=== PATIENT | male | born 1945 | race Caucasian/White ===

== ENCOUNTER → 2017-10-05 12:27 | Outpatient (CLI) | payer MEDICARE, BC, SELFPAY ==
[2017-10-05 14:00] LABS: Thyroid Stim Hormone (TSH) 2.57 uIU/mL (0.358-3.74)
== END ==
PROVIDERS: Family Provider Family Medicine; PCP Family Medicine; Visit Provider Internal Medicine Cardiovascular Disease
DX: I48.91 Unspecified atrial fibrillation (principal)
CPT/HCPCS: 36415; 84443

== ENCOUNTER → 2017-10-27 06:47 | Outpatient (CLI) | payer MEDICARE, BC, SELFPAY ==
--- NOTE | 2017-10-27 06:54 | ECHOCS_ITS ---
Reason For Study: Afib Procedure This was a 2D Doppler, Color Flow transthoracic echocardiogram. The exam was of poor technical quality due to body habitus. The study was technically difficult. Contrast injection was performed. Exam performed in department. Left Ventricle Normal LV size. Left ventricular systolic function is normal. The estimated ejection fraction is 60 %. Unable to assess diastolic dysfunction. No regional wall motion abnormalities noted. Right Ventricle Normal RV size. Normal systolic function. Atria The left atrium is moderately enlarged. The right atrium is mildly enlarged. No doppler evidence for ASD. Mitral Valve There is no mitral annular calcification. Normal mitral valve. Trivial mitral valve insufficiency. Tricuspid Valve Normal tricuspid valve. Trivial tricuspid valve insufficiency. Unable to estimate RV systolic pressure/pulmonary artery pressure due to technically difficult study. Aortic Valve The aortic valve is not well visualized. Pulmonic Valve The pulmonic valve is not well visualized. Great Vessels Normal sized aortic root. Pericardium/Pleural No pericardial effusion. Medication 22 gauge I.V. with prn adaptor inserted into left arm. Diluted definity 4ml given slow IV push to enhance endocardial definition. MMode/2D Measurements & Calculations LVIDd: 4.4 cm IVSd: 1.2 cm Ao root diam: 3.4 cm LVIDs: 2.8 cm LVPWd: 1.6 cm FS: 35.9 % LAV(MOD-sp4): 89.1 ml LA A4 area: 27.0 cm2 RA A4 area: 22.6 cm2 Doppler Measurements & Calculations MV E max estevan: 98.0 cm/sec Ao V2 max: 112.2 cm/sec LV V1 max: 96.6 cm/sec Ao max P.0 mmHg LV V1 max P.7 mmHg Ao V2 mean: 64.3 cm/sec LV V1 mean P.5 mmHg Ao mean P.0 mmHg LV V1 mean: 55.7 cm/sec Ao V2 VTI: 17.6 cm LV V1 VTI: 18.2 cm Interpretation Summary The study was technically difficult. Contrast injection was performed. Left ventricular systolic function is normal. The estimated ejection fraction is 60 %. The left atrium is moderately enlarged. The right atrium is mildly enlarged. Trivial mitral valve insufficiency. Trivial tricuspid valve insufficiency. Unable to estimate RV systolic pressure/pulmonary artery pressure due to technically difficult study. Unable to assess diastolic dysfunction. Ordering Physician: Jim Anderson Referring Physician: iJm Anderson Performed By: Russel Lucio RCS
--- NOTE | 2017-10-27 16:07 | STRESSREP ---
Stress Test Report Date: 10/27/2017 Procedure: Pharmacologic stress nuclear imaging study Indications: Chest pain: Atrial fibrillation; peripheral vascular disease Consent: Per the patient Procedure: The patient underwent pharmacologic (Regadenoson) evaluation with a peak heart rate of 81 beats per minute (54 predicted maximal heart rate) and a peak blood pressure of 142/78 mmHg. The baseline ECG demonstrated atrial fibrillation. The peak pharmacologic ECG demonstrated no obvious ECG changes. There were no cardiac dysrhythmias pretest, during pharmacologic infusion, or recovery. There was no complaint of chest discomfort during pharmacologic infusion or recovery. The examination was discontinued secondary to completion of protocol. Impression: 1. Pharmacologic (Regadenoson) evaluation 2. Peak pharmacologic ECG with atrial fibrillation with no obvious ECG changes. 3. No additional cardiac dysrhythmias pretest, during pharmacologic infusion, or recovery 4. Nuclear images pending Myocardial perfusion imaging study: Technique: The patient was injected with 13.9 millicuries of technetium 99m Cardiolite and subsequently rest SPECT Cardiolite nuclear imaging was obtained in the horizontal long, vertical long, and short axis views. The patient underwent pharmacologic (Regadenoson) evaluation with a peak heart rate of 81 beats per minute (54 % percent predicted maximal heart rate) and a peak blood pressure of 142/78 mmHg. The patient was injected with 45 millicuries of technetium 99m Cardiolite and subsequently stress SPECT Cardiolite nuclear imaging was obtained in the horizontal long, vertical long, and short axis views. A gated Cardiolite study at peak stress was obtained. Interpretation: Rest and stress SPECT Cardiolite nuclear imaging status post realignment, normalization, and attenuation correction demonstrate demonstrate status post stress and area of subtle diminished myocardial perfusion/tracer uptake in the distal inferior/inferoapical segments which appears to be somewhat more prominent than rest.. There is end systolic thickening and brightening. The gated Cardiolite study demonstrates myocardial thickening and inward wall motion. The reported LVEF is 70 %. Impression: 1. Rest and stress SPECT currently nuclear imaging demonstrate status post stress and area of subtle myocardial perfusion/tracer uptake in the distal inferior/inferoapical segments which appears to be somewhat more prominent than rest potentially compatible with an area of stress-induced myocardial ischemia although shifting soft tissue attenuation/artifact cannot necessarily be excluded. 2. The gated Cardiolite study reports an LVEF of 70 %. This note was generated with Dragon dictation software. It may contain incorrect words, spelling, and punctuation that were not noted in checking the note before signing.
== END ==
PROVIDERS: Family Provider Family Medicine; PCP Family Medicine; Visit Provider Internal Medicine Cardiovascular Disease
DX: I48.91 Unspecified atrial fibrillation (principal); R07.89 Other chest pain
CPT/HCPCS: 78452; 93017; 93306; A9500; Q9957; A4216; C8929; J2785

== ENCOUNTER → 2017-11-03 08:04 | Day surgery (SDC) | payer MEDICARE, BC, SELFPAY ==
--- NOTE | 2017-10-30 10:28 | RAD_ITS ---
STUDY: X-RAY CHEST REASON FOR EXAM: Male, 72 years old. Chest pain. TECHNIQUE: PA and lateral views of the chest. COMPARISON: Comparison is made with prior study dated May 20, 2016. FINDINGS: Stable mild increased linear markings at the left lung base with blunting of left costophrenic angle suggestive of scarring. Scattered calcified granulomas. There is no demonstrated pleural abnormality. Normal size heart. Normal mediastinum and vel. Normal visualized pulmonary arteries. There is atherosclerotic calcification of the aortic arch with tortuosity. There is demineralization of the osseous structures. Normal visualized ribs, clavicles, and shoulders. There is no demonstrated abnormality of the visualized soft tissue structures of the upper abdomen. RAD/Chest PA and Lateral IMPRESSION: Stable increased markings at the left lung base with blunting of left costophrenic angle suggestive of left basilar scarring. Electronically Signed: Chase Romero MD at 14:38 EDT Tel [phone], Service support ,
[2017-10-30 11:00] LABS: Hematocrit 42.6 % (40-54); Hemoglobin 14.2 g/dl (13.0-16.5); Mean Corp Hgb Conc 33.3 g/gl (32-36); Mean Corpuscular Volume 89.9 fL (80-94); Mean Platelet Vol. 10.8 fl (6.2-12.0); Platelet Count 163 K/mm3 (150-450); RBC Distribution Width CV 14.1 % (11.6-14.6); RBC Distribution Width SD 46.2 fl (35.1-43.9); Red Blood Count 4.74 M/mm3 (4.6-6.2); White Blood Count 43.9 K/mm3 (4.4-11.0)
[2017-10-30 11:01] LABS: Scan Indicated on CBC? Y/N YES- FLAGS NOTED
[2017-10-30 11:17] LABS: Anion Gap 7 (5-15); BUN 19 mg/dL (7-18); BUN/Creat Ratio 18.8 RATIO (10-20); Calcium,Total 8.5 mg/dL (8.5-10.1); Chloride 105 mmol/L (98-107); Creatinine, Serum 1.01 mg/dL (0.70-1.30); EST Glomerular Filtration Rate 77 mL/min (>60); Est Glom Filt Rate - Afr Amer 94 mL/min (>60); Glucose 112 mg/dL (74-106); Potassium 3.9 mmol/L (3.5-5.1); Sodium Level 139 mmol/L (136-145)
[2017-10-30 11:50] LABS: International Normalized Ratio 1.1; Prothrombin Time (Protime)PT. 14.1 SECONDS (11.7-14.9)
[2017-10-30 11:51] LABS: Partial Thromboplast Time 26.1 Seconds (24.1-36.2)
[2017-10-30 13:59] VITALS: BMI 34.2
[2017-10-30 14:33] LABS: Pathologist Review Reviewed
--- NOTE | 2017-11-03 18:28 | CL.D_ITS ---
Patient Name: KERON MAYER Study Date: 11/03/2017 Performing: Jim Anderson MD Ht: 71 inches 180 cm : 1945 Wt: 247.2 lbs 112 kg Age: 72 Gender: male BSA: 2.3 PROCEDURE(S) PERFORMED RU69-GXE/COR/LV CLINICAL PROFILE AND INDICATIONS Indications: Chest pain Heart Failure: None Stress/Imaging Stress Test w/SPECT MPI: Yes Result: PositiveStress Test with SPECT MPI: Positive Angina Classification Anginal Classification w/in 2 Weeks: CCS III CONCLUSIONS Elevated Left Ventricular End Diastolic Pressure Normal LV size, wall motion,and systolic function LVEF: by LV gram 55 % [place] Multivessel CAD RECOMMENDATIONS Risk factor modification Medical therapy DESCRIPTION OF PROCEDURE The patient arrived to the procedure lab. The risks and benefits of the procedure as well as a full d escription of our services here and current unavailability of surgical backup were fully explained to the patient and/or their significant other prior to the catheterization. The Timeout was completed, verifying the correct patient and procedure. The patient's procedural site was prepped and draped in the usual fashion. Local anesthetic was given subcutaneously to right groin region with Lidocaine 2%. Using a modified Seldinger technique, arterial access was obtained via the right femoral artery, a 4 Fr sheath was inserted Left Coronary Artery selective angiography was performed in multiple views us ing a 4 Fr. JL5 catheter. Right Coronary Artery selective angiography was then performed in multiple views using a 4 Fr. 3DRC catheter. Left Ventriculography was performed in HOLLAND projection using a 4 Fr . Pigtail catheter. LV to AO pullback pressures were then recorded.The arterial sheath was pulled and manual compression applied until hemostasis is achieved. CORONARY ANGIOGRAPHY DOMINANCE: Left Dominant LEFT HEART ASSESSMENT Left Ventricular Ejection Fraction: by LV Gram 55 % Normal LV wall motion Elevated Left Ventricular End Diastolic Pressure LVEDP: 24 mmHg LEFT MAIN: Angiographically normal LEFT ANTERIOR DECENDING ARTERY: OSTIAL LAD: 25 % Stenosis PROX LAD: Mild luminal irregularities DIAGONAL 1: Proximal - Mild luminal irregularities CIRCUMFLEX ARTERY: PROX CIRC: Mild calcification, Mild luminal irregularities OM 1: Ostial - 25 % Stenosis RIGHT CORONARY ARTERY: Angiographically normal VALVE FINDINGS: Normal Aortic Valve function Normal Mitral Valve function AORTIC ROOT: Angiographically normal COMPLICATIONS No Complications PROCEDURE MEDICATIONS Versed 1 mg IV Versed 1 mg IV Oxygen: 2 L/min via nasal cannula SUMMARY OF HEMODYNAMIC DATA Time AIR REST ECG 08:30:31 ECG 09:36:02 AO 97/61 (77) SA 10:19:25 LV 105/12, 29 10:27:59 LV 114/9, 24 10:28:06 LV 110/16, 26 10:28:56 LV 107/17, 25 10:29:03 LVp 111/16, 27 10:29:08 AOp 120/75 (94) 10:29:13 Signed By Jim Anderson MD On 11/03/2017 18:27:59 Jim Anderson MD
== END ==
PROVIDERS: Family Provider Family Medicine; PCP Family Medicine; Visit Provider Internal Medicine Cardiovascular Disease
DX: I25.10 Atherosclerotic heart disease of native coronary artery without angina pectoris (principal); I48.91 Unspecified atrial fibrillation; I10 Essential (primary) hypertension; E78.5 Hyperlipidemia, unspecified; C91.10 Chronic lymphocytic leukemia of B-cell type not having achieved remission; R09.89 Other specified symptoms and signs involving the circulatory and respiratory systems; J44.9 Chronic obstructive pulmonary disease, unspecified; F32.9 Major depressive disorder, single episode, unspecified; Z79.82 Long term (current) use of aspirin; Z79.899 Other long term (current) drug therapy; Z87.891 Personal history of nicotine dependence
CPT/HCPCS: 36415; 71046; 80048; 85027; 85610; 85730; 93458; 99152; 99153; J7040; Q9967; C1769; C1894

== ENCOUNTER → 2018-03-09 14:30 | Outpatient (CLI) | payer MEDICARE, BC, SELFPAY ==
--- NOTE | 2018-03-09 14:33 | VDLE_ITS ---
Reason For Study: LEG SWELLING RIGHT LEFT GSV is normal. CFV is compressible, spontaneous, phasic, CFV is compressible, spontaneous, phasic, competent, and demonstrates normal competent and demonstrates normal augmentation. augmentation. FV is compressible, spontaneous, phasic, competent and demonstrates normal augmentation. POP V is compressible, spontaneous, phasic, competent and demonstrates normal augmentation. T/P Trunk is compressible. PTV is compressible. RT PerV is compressible. Procedure Exam performed in department. A preliminary report was called and/or faxed to Anthony Donald. Interpretation Summary Deep veins of the right lower extremity are patent and compressible segmentally. There is no evidence of right lower extremity deep vein thrombosis. Valvular competence appears intact within the proximal deep venous system on the right . The right greater saphenous vein appears patent and compressible segmentally. Ordering Physician: Kelin Donald Referring Physician: Med Villanueva Performed By: Brissa Regalado RVT
== END ==
PROVIDERS: Family Provider Family Medicine; PCP Family Medicine; Referring Provider Nurse Practitioner Family; Visit Provider Nurse Practitioner Family
DX: R60.0 Localized edema (principal)
CPT/HCPCS: 93971

== ENCOUNTER → 2018-03-26 10:27 | Outpatient (CLI) | payer MEDICARE, BC, SELFPAY ==
--- NOTE | 2018-03-26 10:33 | CT_ITS ---
STUDY: CT RIGHT KNEE/PROXIMAL MID LOWER LEG WITHOUT CONTRAST REASON FOR EXAM: Male, 73 years old. Swelling and redness of the knee one week after leg was run over by a tractor. RADIATION DOSAGE (If Supplied By Facility): CTDIvol = ( 15.35 ) mGy, DLP = ( 810.46 ) mGycm TECHNIQUE: Transaxial CT imaging of the knee was performed. Coronal and sagittal images were reformatted. # of Images: 549 Individualized dose optimization techniques were used for this CT. COMPARISON: None. FINDINGS: There is periarticular spurring of the medial femoral condyle and, to a minimal degree, the medial tibial plateau. There is mild narrowing of the articular joint space of the medial knee compartment. There is notable periarticular spurring of the lateral femoral condyle and lateral tibial plateau. Nondisplaced, sagittal oriented intra-articular fracture also noted through the lateral tibial plateau. There is moderately severe narrowing of the articular joint space of the lateral knee compartment. Normal proximal tibiofibular articulation. There is periarticular spurring of the base of the patella. There is a small to moderate volume joint effusion. The quadriceps tendon is grossly normal. The patellar tendon is grossly normal. Normal Hoffa's fat pad. There is stranding density in the subcutaneous tissues of the visualized lower thigh to the mid lower leg, greater laterally, which may be edema or ecchymosis lentiform shaped 6.25 x 2.05 x 2.5 cm soft tissue density in the lateral subcutaneous tissues of the proximal lower leg (series 602 image 37, series 2 image 92) may be a localized hematoma. There is also some prepatellar soft tissue swelling. CT/Extremity Lower without Contra IMPRESSION: 1. Nondisplaced intra-articular sagittal fracture through the lateral tibial plateau, accompanied by mhaty-oe-[id number] sized joint effusion/hemarthrosis. 2. Probable small hematoma in the superficial lateral subcutaneous tissues of the proximal right lower leg. Additional stranding in the subcutaneous tissues from the distal thigh up to the mid third of the lower leg may be edema or ecchymosis. 3. Tricompartmental degenerative changes of the right knee, as described. N.B. : The above information has been verbally conveyed by Asaf Romo MD to Dr. Kim MD, on 03/27/2018 13:15:47 (ET). Electronically Signed: Asaf Romo MD at 13:16 EDT , Service support ,
--- NOTE | 2018-03-26 10:33 | CT_ITS ---
STUDY: CT ABDOMEN AND PELVIS WITH CONTRAST REASON FOR EXAM: Male, 73 years old. Edema, CLL. RADIATION DOSAGE (If Supplied By Facility): CTDIvol = ( 26.86 ) mGy, DLP = ( 1313.38 ) mGycm TECHNIQUE: Transaxial images were obtained from the dome of the diaphragm to the symphysis pubis with oral contrast. 100 ml of Isovue 300 contrast was administered. Sagittal and coronal images were reconstructed. # Of Images Including Paperwork: 450 Individualized dose optimization techniques were used for this CT. COMPARISON: CT abdomen and pelvis March 10, 2017. FINDINGS: The visualized lung bases are unremarkable. The visualized portions of the heart are within normal limits. Normal liver. Normal gallbladder and extrahepatic biliary system. There is mild splenomegaly, measuring 17 x 14 x 8 cm. Normal pancreas. Normal bilateral adrenal glands. Normal right kidney. Normal left kidney. No hydronephrosis. Normal visualized stomach. Normal small intestine. There is a ring of anastomotic sutures at the distal sigmoid. Gas and fecal material fill most of the colon, but there is no distention. No suspicious mural thickening. There is non-visualization of the appendix. There is diffuse atherosclerotic calcification of the abdominal aorta and proximal iliac arteries, without a demonstrated aneurysm. Normal inferior vena cava. There are abdominal retroperitoneal lymph nodes ranging from nonspecific subcentimeter size to mildly enlarged, several of which have enlarged. There are enlarged bilateral iliac lymph nodes now clearly increased in size from previous exam and mild right inguinal adenopathy. A distal right iliac lymph node, for example, is 5.2 x 2.65 x 2.8 cm (series 7 image 92, series 608 image 67), while a distal left external iliac lymph node is 3.9 x 2.2 x 2.8 cm (series 7 image 87, series 608 image 109). Normal urinary bladder. The prostate gland is 4.6 x 4.4 x 4.6 cm (R49 cc). Small hernia containing a knuckle of nondistended small bowel is now seen at the site of an old healed surgical incision of the left anterior abdominal wall. There are stable degenerative changes of the visualized lumbar spine and an 18 degree levoscoliosis centered at the superior L5 vertebral endplate. Stable subcentimeter sclerotic density in the right ilium series [address]/Abdomen/Pelvis WITH Contrast IMPRESSION: 1. Increased retroperitoneal adenopathy, as described. 2. Mild splenomegaly. 3. Ring anastomotic sutures again seen at the distal sigmoid. No suspicious mural thickening. No bowel obstruction. 4. A small knuckle of nondistended small bowel now seen within a small hernia of the left anterior abdominal wall at the site of an old healed surgical incision. 5. Stable degenerative changes and levoscoliosis of the lumbar spine. 6. Aortoiliac atherosclerotic calcific plaquing again noted. No demonstrated aneurysm, but the aortic calcification by itself portends some risk for future cardiovascular event, Abdominal Aortic Calcific Deposits Are an Important Predictor of Vascular Morbidity and Mortality; Gordon Bazan, et al. Circulation, Aug 2000;103:[id number]. 7. Enlarged prostate gland. Electronically Signed: Asaf Romo MD at 13:52 EDT , Service support ,
--- NOTE | 2018-03-26 10:33 | CT_ITS ---
STUDY: CT CHEST WITH CONTRAST REASON FOR EXAM: Male, 73 years old. Chronic lymphocytic leukemia. Edema. RADIATION DOSAGE (If Supplied By Facility): CTDIvol = ( 25.35 ) mGy, DLP = ( 874.30 ) mGycm TECHNIQUE: Transaxial imaging was performed following intravenous administration of 100 ml of Isovue 300 contrast material. Multiplanar coronal and sagittal images were reformatted. # of Images: 867 Individualized dose optimization techniques were used for this CT. COMPARISON: CT chest: 07/02/2016 FINDINGS: There is mild hyperinflation of the lungs possibly with chronic obstructive lung disease (COPD). There is a small calcified nodule/granuloma present in the right lower lobe. Minimal atelectatic changes in the left lung base. Lung glez are unremarkable for acute infiltrative or congestive changes. Posteriorly that is mild pleural thickening. No pleural or pericardial effusion. There is borderline cardiomegaly. There are mild calcifications of the coronary arteries. Again demonstrated multiple lymph nodes within the mediastinum, mildly increased in size and number since the prior exam. Small bilateral hilar lymph nodes are present. Normal enhanced pulmonary arteries. There is atherosclerotic calcification of the aortic arch with tortuosity and elongation of the aortic arch and descending thoracic aorta. No abnormal enhancement. There are multi-level mild degenerative changes of the thoracic spine. Mildly increased thoracic kyphosis Again demonstrated multiple bilateral enlarged axillary lymph nodes mildly increased in size since the prior exam. There is no demonstrated acute abnormality of the visualized upper abdomen. Moderate splenomegaly. Multiple small mesenteric and periaortic lymph nodes are visualized. CT/Chest WITH Contrast IMPRESSION: 1. Bilateral mediastinal and axillary lymphadenopathy again demonstrated. 2. Possible COPD. No worrisome lung nodule or mass identified. 3. Moderate splenomegaly. Electronically Signed: Dioni Marsh MD at 10:35 EDT Tel , Service support ,
== END ==
PROVIDERS: Family Provider Family Medicine; PCP Family Medicine; Referring Provider Physician Assistant; Visit Provider Physician Assistant
DX: C91.10 Chronic lymphocytic leukemia of B-cell type not having achieved remission (principal); R16.1 Splenomegaly, not elsewhere classified; R74.0 Nonspecific elevation of levels of transaminase and lactic acid dehydrogenase [LDH]; R60.0 Localized edema; M17.11 Unilateral primary osteoarthritis, right knee
CPT/HCPCS: 71260; 73700; 74177; Q9967

== ENCOUNTER → 2018-03-30 10:47 | Outpatient (CLI) | payer MEDICARE, BC, SELFPAY ==
--- NOTE | 2018-03-30 10:51 | VDLE_ITS ---
Reason For Study: LEG PAIN RIGHT LEFT GSV is normal. CFV is compressible, spontaneous, phasic, CFV is compressible, spontaneous, phasic, competent, and demonstrates normal competent and demonstrates normal augmentation. augmentation. FV is compressible, spontaneous, phasic, competent and demonstrates normal augmentation. POP V is compressible, spontaneous, phasic, competent and demonstrates normal augmentation. T/P Trunk is compressible. PTV is compressible. RT PerV is compressible. Procedure Exam performed in department. A preliminary report was called and/or faxed to Anthony Ortiz. Interpretation Summary Deep veins of the right lower extremity are patent and compressible segmentally. There is no evidence of right lower extremity deep vein thrombosis. Valvular competence appears intact within the proximal deep venous system on the right . The right greater saphenous vein appears patent and compressible segmentally. Ordering Physician: Danyel Ortiz Referring Physician: Danyel Ortiz Performed By: Brissa Regalado RVT
== END ==
PROVIDERS: Family Provider Family Medicine; PCP Family Medicine; Referring Provider Physician Assistant; Visit Provider Physician Assistant
DX: M79.661 Pain in right lower leg (principal)
CPT/HCPCS: 93971

== ENCOUNTER → 2018-06-15 11:03 | Outpatient (CLI) | payer MEDICARE, BC, SELFPAY ==
[2018-06-14 14:36] VITALS: BMI 34.4
== END ==
PROVIDERS: Family Provider Family Medicine; PCP Family Medicine; Referring Provider Surgery; Visit Provider Surgery
DX: R09.89 Other specified symptoms and signs involving the circulatory and respiratory systems (principal)
CPT/HCPCS: 93880

== ENCOUNTER 2018-06-16 10:24 | Day surgery (SDC) | payer MEDICARE, BC, SELFPAY ==
[2018-06-14 14:36] VITALS: BMI 34.4
[2018-06-16] VITALS (7 sets, daily range): BP systolic 105–121; BP diastolic 67–84; PULSE 50–72; RESP 12–16; TEMP 36.3–36.8; O2SAT 92–97; BMI 34.5
[2018-06-16] MEDS: Cefazolin 2 GM in 0.9% Normal Saline 100 ML IV (12:15)
--- NOTE | 2018-06-16 12:22 | PCM.DC.POR ---
Discharge Diet: No Restrictions - Pain medication may cause nausea. You should typically eat light foods as you take your pain medication. Discharge Activity: Return to Normal Activity, May Shower - Leave the bandage on for 2-3 days. When you remove the bandage, leave the steri-strips intact until they fall off. Additional Dressing/Incision Instructions:: Leave the bandage on for 2-3 days. When you remove the bandage, leave the steri-strips intact until they fall off. Allergies/Adverse Reactions: Allergies No Known Allergies Allergy (Verified 06/14/18 14:36) Medications to take at Discharge Amlodipine [Norvasc] 10 mg PO QHS 05/09/16 Aspirin [Adult Low Dose Aspirin EC] 81 mg PO DAILY 05/09/16 Losartan Potassium [Cozaar] 50 mg PO QHS 05/09/16 Albuterol Inhaler [Ventolin Hfa] 1 - 2 puff INHALATION Q4H PRN PRN 07/22/16 Loratadine [Claritin] 10 mg PO DAILY 09/03/16 atorvastatin 40 mg tablet 40 mg PO QHS tab 08/21/17 carvedilol 6.25 mg tablet 6.25 mg PO BID tab 08/21/17 citalopram 40 mg tablet 20 mg PO QDAY tab 08/21/17 hydrochlorothiazide 12.5 mg tablet 12.5 mg PO QDAY tab 08/21/17 melatonin 10 mg tablet 10 mg PO HS PRN 10/05/17 clspshqm-byh-kvjji acid 300 mcg-lycopene 600 mcg-lutein 300 mcg tablet 1 tab PO QDAY tab 10/05/17 apixaban 5 mg tablet 5 mg PO BID #180 tab 11/06/17 Allopurinol [Zyloprim] 300 mg PO DAILY 168 Days #36 tab 06/14/18 Lidocaine/Prilocaine [Lidocaine-Prilocaine Cream] 1 applicatio TP DAILY PRN PRN 30 Days #1 tube 06/14/18 Ondansetron [Zofran Odt] 4 mg PO Q8H PRN PRN 10 Days #30 tab 06/14/18 Valacyclovir HCl [Valacyclovir] 500 mg PO DAILY 30 Days #30 tab 06/14/18 Hydrocodone Bitart/Apap 5-325 [[place] 5MG-325MG] 1 tablet PO Q6H PRN PRN 2 Days #5 tablet 06/16/18 The following prescriptions were given: Hydrocodone Bitart/Apap 5-325 [[place] 5MG-325MG] 1 tablet PO Q6H PRN PRN 2 Days #5 tablet PRN Reason: Pain Primary Care Physician: Med Villanueva [Primary Care Provider] - Test Results: Test results from this visit will be discussed in further detail at your follow-up appointment, if applicable. Please Follow Up With: Ned Mills MD - [phone] When: Follow up office can be as needed
[2018-06-16] MEDS: Bupivacaine 0.5% PF 10 ML VIAL (12:49)
--- NOTE | 2018-06-16 13:01 | PCM.OPRPT ---
Problem List (1) Chronic lymphocytic leukemia (CLL), B-cell Status: Chronic Qualifiers: Report of Operation Date of Procedure: 06/16/18 Pre-Operative Diagnosis: Chronic lymphocytic leukemia Post-Operative Diagnosis: Same Surgery/Procedure Performed:: Right internal jugular 6 [place] power port placement. Reference #[id number] lot number [id number] expiry date 10/06/2019 Description of Surgical Findings:: Timeout and informed consent was obtained. 73-year-old male was taken the operating placement table underwent monitored anesthesia care. Ancef 2 g given intravenous preoperatively. The right neck and chest were sterilely prepped and draped. 1% lidocaine mixed 50-50 with 0.5% Marcaine was used as a local anesthetic. Throughout the procedure a total of 20 cc was used. Under ultrasound guidance local was instilled. Micropuncture needle was inserted in the right internal jugular vein followed by salvage wire advancement. Micropuncture wire inserted. Then local was instilled down upon the chest wall. Mid clavicular line second intercostal space transverse incision was created. Electrocautery was used to make a sub-changes pocket. The tubing was tunneled from the chest to the neck site. Then the micropuncture sheath dilator was placed over the wire. The wires and dilator were removed and an 035 J-wire was inserted. Fluoroscopy demonstrated good positioning. The sheath dilator was inserted over the wire the wire and dilator removed catheter was advanced to the sheath the sheath was split the catheter was positioned at the SVC atrial junction. The catheter was amputated connected to the port secured with port attachment device. The port was placed in the pocket secured there with interrupted 2-0 silk. The port site was closed with interrupted 3-0 Vicryl subdermal stitches. The neck was closed with interrupted 5-0 Vicryl subdermal stitches. Steri-Strips Telfa and OpSite dressings applied. The port was accessed and aspirated easily it was flushed with saline and then 2.5 cc of heparinized saline. Sponge and instrument and needle counts were reported to the surgeon to be correct. Blood loss was minimal. He tolerated the procedure well and was taken to the recovery area in satisfactory condition. Stat portable chest x-ray is pending. Specimens none. Drains none. Blood loss minimal. Ned Mills M.D., F.A.C.S. Type of Anesthesia:: Local MAC Anesthesiologist: Alicia Mcgovern
--- NOTE | 2018-06-16 13:35 | RAD_ITS ---
STUDY: X-RAY CHEST REASON FOR EXAM: Male, 73 years old. Port placement. TECHNIQUE: Single AP portable view of the chest. COMPARISON: Comparison is made with prior study dated October 30, 2017. FINDINGS: A right-sided portacatheter has been placed. The tip is in the proximal portion of the superior vena cava. Scattered calcified granulomas. There is no demonstrated pleural abnormality. There is mild cardiac enlargement. Normal mediastinum and vel. Normal visualized pulmonary arteries. There is atherosclerotic calcification of the aortic arch with tortuosity. Normal visualized thoracic spine. Normal visualized ribs, clavicles, and shoulders. There is no demonstrated abnormality of the visualized soft tissue structures of the upper abdomen. RAD/Chest 1 View (Portable) IMPRESSION: The tip of the right portacatheter is in the proximal portion of the superior vena cava. Electronically Signed: Chase Romero MD at 15:28 EST Tel [phone], Service support ,
== END 2018-06-16 14:46 | disposition home or self-care (01) ==
LOC: SDC 10:25 → AC 10:26
PROVIDERS: Family Provider Family Medicine; PCP Family Medicine; Referring Provider Surgery; Visit Provider Surgery
PROC: (CPT 36561; principal; 2018-06-16 12:15)
DX: Z45.2 Encounter for adjustment and management of vascular access device (principal); C91.10 Chronic lymphocytic leukemia of B-cell type not having achieved remission; R09.89 Other specified symptoms and signs involving the circulatory and respiratory systems; I25.10 Atherosclerotic heart disease of native coronary artery without angina pectoris; I10 Essential (primary) hypertension; I48.91 Unspecified atrial fibrillation; J44.9 Chronic obstructive pulmonary disease, unspecified; E78.00 Pure hypercholesterolemia, unspecified; G47.33 Obstructive sleep apnea (adult) (pediatric); F32.9 Major depressive disorder, single episode, unspecified; Z79.01 Long term (current) use of anticoagulants; Z79.82 Long term (current) use of aspirin; Z79.899 Other long term (current) drug therapy; Z87.891 Personal history of nicotine dependence
CPT/HCPCS: 36561; 71045; 77001; J7120

== ENCOUNTER → 2018-09-30 13:59 | Outpatient (CLI) | payer MEDICARE, BC, SELFPAY ==
[2018-09-15 13:26] VITALS: BMI 36.6
--- NOTE | 2018-09-30 14:01 | ECHODONC_ITS ---
Reason For Study: Dyspnea/SOB Procedure This was a 2D Doppler, Color Flow transthoracic echocardiogram. Technically difficult study. Unable to perform Strain Analysis due to arrhythmia and need/use of Definity. The study was technically difficult. Contrast injection was performed. Exam performed in department. Left Ventricle Normal LV size. Mild concentric left ventricular hypertrophy. Left ventricular systolic function is normal. The estimated ejection fraction is 65 %. Unable to assess diastolic dysfunction. No regional wall motion abnormalities noted. Right Ventricle Normal RV size. Normal systolic function. Atria The left atrium is moderately enlarged. The right atrium is mildly enlarged. No doppler evidence for ASD. Mitral Valve There is mild mitral annular calcification. Normal mitral valve. Trivial mitral valve insufficiency. Tricuspid Valve Normal tricuspid valve. Trivial tricuspid valve insufficiency. Unable to estimate RV systolic pressure/pulmonary artery pressure due to technically difficult study. Aortic Valve The aortic valve is not well visualized. Pulmonic Valve The pulmonic valve is not well visualized. Great Vessels Normal sized aortic root. Pericardium/Pleural No pericardial effusion. Medication Diluted definity 3ml given slow IV push to enhance endocardial definition. MMode/2D Measurements & Calculations LVIDd: 4.4 cm IVSd: 1.4 cm Ao root diam: 3.6 cm LVIDs: 2.6 cm LVPWd: 1.3 cm FS: 41.2 % LAV(MOD-sp4): 105.3 ml LA A4 area: 32.2 cm2 RA A4 area: 26.3 cm2 Doppler Measurements & Calculations MV E max estevan: 107.5 cm/sec Ao V2 max: 130.1 cm/sec LV V1 max: 90.8 cm/sec Ao max P.8 mmHg LV V1 max P.3 mmHg PA V2 max: 98.1 cm/sec Interpretation Summary The study was technically difficult. Contrast injection was performed. Left ventricular systolic function is normal. The estimated ejection fraction is 65 %. Mild concentric left ventricular hypertrophy. The left atrium is moderately enlarged. The right atrium is mildly enlarged. There is mild mitral annular calcification. Trivial mitral valve insufficiency. Trivial tricuspid valve insufficiency. Unable to estimate RV systolic pressure/pulmonary artery pressure due to technically difficult study. Unable to assess diastolic dysfunction. Ordering Physician: David Holloway Referring Physician: Med Villanueva Performed By: Russel Lucio RCS
== END ==
PROVIDERS: Family Provider Family Medicine; PCP Family Medicine; Referring Provider Internal Medicine Cardiovascular Disease; Visit Provider Internal Medicine Cardiovascular Disease
DX: R06.02 Shortness of breath (principal); I48.91 Unspecified atrial fibrillation
CPT/HCPCS: 93306; Q9957; A4216; C8929

== ENCOUNTER → 2018-10-26 13:32 | Outpatient (CLI) | payer MEDICARE, BC, SELFPAY ==
[2018-10-26 11:06] VITALS: BMI 35.5
--- NOTE | 2018-10-26 13:36 | VDLE_ITS ---
Reason For Study: swelling RIGHT LEFT GSV is normal. CFV is compressible, spontaneous, phasic, CFV is compressible, spontaneous, phasic, competent, and demonstrates normal competent and demonstrates normal augmentation. augmentation. FV is compressible, spontaneous, phasic, competent and demonstrates normal augmentation. POP V is compressible, spontaneous, phasic, competent and demonstrates normal augmentation. T/P Trunk is compressible. PTV is compressible. RT PerV is compressible. Procedure Exam performed in department. The exam was diagnostic. A preliminary report was called and/or faxed to Dr. Shin's office. Interpretation Summary There is no evidence of right lower extremity deep vein thrombosis. Right greater saphenous vein appears patent and compressible segmentally. Normal flow patterns left common femoral vein Ordering Physician: Heraclio Shin Performed By: Benton Doyle RVT
== END ==
PROVIDERS: Family Provider Family Medicine; PCP Family Medicine; Referring Provider Internal Medicine Medical Oncology
DX: R22.41 Localized swelling, mass and lump, right lower limb (principal); C91.10 Chronic lymphocytic leukemia of B-cell type not having achieved remission; E78.5 Hyperlipidemia, unspecified; Z12.5 Encounter for screening for malignant neoplasm of prostate
CPT/HCPCS: 36592; 80053; 83615; 85025; 93971; A4216

== ENCOUNTER 2018-12-21 10:50 | Day surgery (SDC) | payer MEDICARE, BC, SELFPAY ==
--- NOTE | 2018-12-08 01:02 | HP_ITS ---
HPI HPI History of Present Illness Surgical H&P: Yes Details: KERON MAYER, is a 73 M who presents to the office today to discuss a cardioversion. He has a history of atrial fibrillation, minimal coronary artery disease, hypertension, hyperlipidemia, carotid artery disease, obstructive sleep apnea, and chronic lymphatic leukemia with chemotherapy. Since he was here last he did see EP for possible ablation. They had recommended a cardioversion first, if this did not work then would proceed with an ablation. Patient states that he still does note that he is short of breath at times. He also notes that he is fatigued. He does realize that his issues could also be related to his obstructive sleep apnea or to him just finishing up his chemotherapy. He is not aware of any irregular heartbeats. He does not have any chest discomfort. He does not have any orthopnea. He does not have any lightheadedness or dizziness. He does not have any lower extremity edema. Intake Vital Signs 12/08/18 Height 5 ft 11 in 12/08/18 Weight: 248 lb 8 oz 12/08/18 Body Mass Index (BMI) 34.6 12/08/18 Blood Pressure 128/76 H 12/08/18 Blood Pressure Location Lt brachial 12/08/18 Blood Pressure Position Sitting 12/08/18 Respiratory Rate 14 12/08/18 Pulse Rate 68 12/08/18 Pulse Source Palpation Intake Visit Reasons: 6 wk FU [employer]icy[employer] Required: No Is patient in pain?: No Allergies No Known Allergies Allergy (Verified 12/08/18 11:09) Medications Amlodipine [Norvasc] 10 mg PO QHS 05/09/16 [History Confirmed 12/08/18] Aspirin [Adult Low Dose Aspirin EC] 81 mg PO DAILY 05/09/16 [History Confirmed 12/08/18] Losartan Potassium [Cozaar] 50 mg PO QHS 05/09/16 [History Confirmed 12/08/18] Albuterol Inhaler [Ventolin Hfa] 1 - 2 puff INHALATION Q4H PRN PRN 07/22/16 [History Confirmed 12/08/18] Loratadine [Claritin] 10 mg PO DAILY 09/03/16 [History Confirmed 12/08/18] atorvastatin 40 mg tablet 40 mg PO QHS tab 08/21/17 [History Confirmed 12/08/18] carvedilol 6.25 mg tablet 6.25 mg PO BID tab 08/21/17 [History Confirmed 12/08/18] citalopram 40 mg tablet 20 mg PO QDAY tab 08/21/17 [History Confirmed 12/08/18] hydrochlorothiazide 12.5 mg tablet 12.5 mg PO QDAY tab 08/21/17 [History Confirmed 12/08/18] melatonin 10 mg tablet 10 mg PO HS PRN 10/05/17 [History Confirmed 12/08/18] apixaban 5 mg tablet 5 mg PO BID #180 tab 11/06/17 [Rx Confirmed 12/08/18] food supplement, lactose-reduced 0.04 gram-1 kcal/mL oral liquid 1 ea PO ml 12/08/18 [History Confirmed 12/08/18] valacyclovir 500 mg tablet 500 mg PO DAILY 12/08/18 [History Confirmed 12/08/18] Nurse's Note: I just feel tired today w/ normal sleeping habits (8-9 hrs). Currently taking Valacyclovir 500 mg, but in our med list it had been d/c. PFSH Medical History Bruit of left carotid artery (Acute) Atherosclerosis of [place] coronary artery of [place] heart without angina pectoris (Chronic) Atrial fibrillation (Chronic) Pure hypercholesterolemia (Chronic) Essential (primary) hypertension (Chronic) Chronic lymphocytic leukemia (CLL), B-cell (Chronic) Edema of right lower extremity (Acute) Bruising (Acute) Chest discomfort (Acute) YURI (obstructive sleep apnea) (Chronic) Right carotid bruit (Chronic) Renal mass (Acute) Renal mass, left (Acute) Skin cancer of face (Acute) CLL (chronic lymphocytic leukemia) (Chronic) COPD (chronic obstructive pulmonary disease) (Chronic) Depression (Chronic) Diverticulitis (Chronic) Surgical History CYST REMOVAL FROM BACK (Chronic) History of arthroscopy of both knees (Chronic) History of colectomy (Chronic) History of tonsillectomy (Chronic) Previous back surgery (Chronic) RIGHT FOREARM SCREWS AND PLATES (Chronic) kidney tumor removed (Chronic) Family History Mother Throat cancer Father Heart disease Brother Hypertension Social History (Updated 12/08/18 @ 13:02 by YUNIER Frausto) Smoking Status: Current some day smoker alcohol intake: current substance use type: does not use ROS Const Const: Positive for fatigue; negative for weakness, fever(s) or headache(s) Eyes Eyes: Negative for blind spots, loss of peripheral vision or transient loss of vision ENT ENT: Negative for headache(s), dizziness, tinnitus or Nosebleed/epistaxis Cardio Chest Pain: No Palpitations: No Edema: None Muscle aches with walking: None Resp Respiratory: Positive for SOB with activity; negative for SOB at rest, SOB orthopnea\SOB lying down or Cough GI GI: Negative nausea, vomiting, heartburn or vomiting blood/hematemesis : Negative for hematuria Musc Musc: Negative for muscle aches/ myalgia Neuro Neuro: Negative for dizziness, lightheadedness, near syncope, syncope, orthostatic symptoms, headache(s) or weakness James Hematologic/Lymphatic: Negative for easy bleeding Endo Endo: Positive for fatigue Cardiology Exam Const Appearance: cooperative, healthy appearing, comfortable and no acute distress Nutritional Appearance: well nourished and obese Orientation: alert, awake and oriented x3 Head Head: normal to inspection Ears: hearing grossly normal bilaterally Nose: external nose normal Face and Sinus: face symmetric Mouth: oral mucosae normal Eyes General: appearance normal, both eyes and all related structures Eyelids: eyelids normal EOM: EOM intact bilaterally Neck Neck: normal visual inspection and no JVD Carotids: normal carotid upstroke Chest Chest inspection: normal inspection of the chest, symmetric chest movement and normal respiratory effort; negative cough Auscultation: Bilateral: Clear to Auscultation Cardio Rate: regular rate Rhythm: irregularly irregular Heart sounds: S1 normal and S2 normal; negative rub, gallop or murmur GI GI: obese Neuro General: alert, awake, oriented x3 and CN's II-XI intact bilaterally Skin Skin: no rashes or lesions noted Extremities Pulses: Normal: Right Posterior Tibial Pulse, Left Posterior Tibial Pulse, Right Radial Pulse, Left Radial Pulse Lower Extremity Edema: None: Bilateral Right knee brace Psych Psychological: normal affect Assessment & Plan 1. Atrial fibrillation, unspecified type I48.91 Plan Patient is agreeable to proceed with a cardioversion, this is scheduled for December 21, [address] Anderson. He is anticoagulated with a factor Xa inhibitor. He is also on a rate limiting medication. If his cardioversion is unsuccessful we will then refer patient back to EP for an ablation. Orders Orders: Cardioversion Today 2. Essential hypertension I10 Plan Blood pressure is well controlled on current medications, we do not recommend any changes at this time. 3. Pure hypercholesterolemia E78.00 Plan Patient will continue with current moderate intensity 4. YURI (obstructive sleep apnea) G47.33 Plan Patient does follow with pulmonary for his sleep apnea. He states that he is having a new sleep study done. He was encouraged to continue with this as this could be also contributing to his fatigue and shortness of breath. 5. Atherosclerosis of [place] coronary artery of [place] heart without angina pectoris I25.10 Plan Stable, from a cardiac standpoint patient does not have any symptoms of angina. We recommend that they continue with current aggressive medical management and risk factor modification. Plan Detail Other Medications New: food supplement, lactose-reduced (Boost) 1 ea PO valacyclovir 500 mg PO DAILY Additional Comments Thank you for allowing us to participate in patient's plan of care, if you have any questions please do not hesitate to call. This note was generated using a voice recognition system and there may be incorrect words, spelling or punctuation errors that were not noted when reviewing the office note prior to saving. Follow Up 12/08/18 (keep as is) 12/08/18 (Please make an EKG appt one week after 12/21- cardioversion scheduled for then- thanks) Coding Level of Care Code Off vis,est,level 4 Diagnoses Atrial fibrillation, unspecified type I48.91 ??Atrial fibrillation type: unspecified Essential hypertension I10 Pure hypercholesterolemia E78.00 YURI (obstructive sleep apnea) G47.33 Atherosclerosis of [place] coronary artery of [place] heart without angina pectoris I25.10 Coding Level of Care Code Off vis,est,level 4 Diagnoses Atrial fibrillation, unspecified type I48.91 ??Atrial fibrillation type: unspecified Essential hypertension I10 Pure hypercholesterolemia E78.00 YURI (obstructive sleep apnea) G47.33 Atherosclerosis of [place] coronary artery of [place] heart without angina pectoris I25.10 Supplemental Info Supplemental Information Heart catheterization from October 2017 showed ejection fraction of 55%, LVEDP of 24 mmHg, left main is angiographically normal, ostial LAD with 25% stenosis, proximal LAD with mild luminal irregularities, diagonal 1 with proximal mild luminal irregularities, proximal circumflex with mild calcification and mild luminal irregularities, OM1 with ostial 25% stenosis, and RCA as angiographically normal. Medical therapy was recommended. Carotid duplex ultrasound from January 2016 showed mild, less than 50%, stenosis of right and left extracranial internal carotid. Echocardiogram from October 2017 showed an estimated ejection fraction of 60%, moderately enlarged left atrium, mildly enlarged right atrium, trivial mitral valve insufficiency, trivial tricuspid valve insufficiency, unable to target RVSP, and unable to calculate diastolic dysfunction. Stress test from October 2017 showed an area potentially compatible with stress- induced myocardial ischemia although soft tissue attenuation/artifact could not nicely be excluded with an ejection fraction of 70%. Labs LDL Cholesterol 46 mg/dL (0-130) 06/10/18 HDL Cholesterol 33 mg/dL (40-) L 06/10/18 Triglycerides 159 mg/dL (-199) 06/10/18 VLDL Cholesterol 32 mg/dL (5-40) 06/10/18 Diagnostics Echocardiogram 09/30/18 Venous Doppler Study 10/26/18 12/08/18 1302 <Electronically signed by Carolyn Griffin> Date _ Carolyn FAYE I have re-examined the patient. There are no clinical changes since date of exam.
[2018-12-08 11:06] VITALS: BMI 34.6
--- NOTE | 2018-12-21 11:44 | EKG12_ITS ---
Test Reason : POST DCCV Blood Pressure : / mmHG Vent. Rate : 067 BPM Atrial Rate : 067 BPM P-R Int : 238 ms QRS Dur : 102 ms QT Int : 454 ms P-R-T Axes : -09 -32 018 degrees QTc Int : 479 ms Sinus rhythm with 1st degree A-V block Left axis deviation Low voltage QRS Abnormal ECG When compared with ECG of 21-DEC-2018 11:44, MANUAL COMPARISON REQUIRED, DATA IS UNCONFIRMED Confirmed by PIETER HUYNH, FERCHO ([id number]), assignment editor EMILIE TREVIZO ([id number]) on 12/27/2018 2:02:59 PM Referred By: Jim Anderson Confirmed By:CHELO STAPLETON MD
--- NOTE | 2018-12-21 12:45 | EKG12_ITS ---
Test Reason : A-FIB Blood Pressure : / mmHG Vent. Rate : 054 BPM Atrial Rate : 058 BPM P-R Int : 000 ms QRS Dur : 088 ms QT Int : 446 ms P-R-T Axes : 000 -25 013 degrees QTc Int : 422 ms Atrial fibrillation Low voltage QRS Abnormal ECG No previous ECGs available Confirmed by PIETER HUYNH, FERCHO ([id number]), order editor EMILIE TREVIZO ([id number] on 12/27/2018 2:02:46 PM Referred By: Jim Anderson Confirmed By:CHELO STAPLETON MD
--- NOTE | 2018-12-21 13:03 | PCM.OP.PRO ---
Procedure Report Date of Procedure: 12/21/18 CONSCIOUS SEDATION REPORT DATE OF SERVICE: December 21, 2018 BRIEF HISTORY OF PRESENT ILLNESS: The patient is a 73-year-old male that presents to [facility] for an elective outpatient cardioversion due to underlying atrial fibrillation. The patient denies a previous history of any anesthetic complications. He has never undergone a prior cardioversion. He does confirm a history of obstructive sleep apnea, for which he reports compliance with the use of nocturnal Pap therapy. In addition, he does report having been diagnosed with COPD previously and does occasionally utilize tobacco products. The patient is currently anticoagulated on Eliquis. His last surface echocardiogram revealed an ejection fraction of approximately 65%. PHYSICAL EXAMINATION: VITAL SIGNS: Reviewed and were acceptable. GENERAL: The patient is a male, in no apparent distress, speaking in full sentences. HEENT: Normocephalic, atraumatic. Mucous membranes are moist and pink. Good mouth opening noted. Trachea is midline. Large neck circumference. CHEST: S1, S2 irregularly irregular. No murmurs, rubs or gallops were noted. LUNGS: Clear to auscultation bilaterally without appreciable wheezes, rales or rhonchi. ABDOMEN: Soft, nontender, nondistended. Positive bowel sounds. EXTREMITIES: There is no clubbing or cyanosis. + Lower symmetry edema ASA Class: II DESCRIPTION OF PROCEDURE: After confirmation of informed consent, the patient's anesthesia plan was reviewed in detail. Propofol was chosen. Risks and benefits were reviewed and the patient agreed to proceed. At 1237, the patient was given his first bolus of propofol. In total, the patient required 80 mg of propofol throughout the entire procedure to facilitate two separate cardioversion attempts, one at 200J and one at 300J. Normal sinus rhythm was restored after the last cardioversion attempt. The patient was monitored until 1248, at which time he reached his baseline mental status and function. The patient tolerated the procedure well. COMPLICATIONS: None ESTIMATED BLOOD LOSS: None RECOMMENDATIONS: Okay to recover in usual fashion. Code Visit 9xxxx: Other Procedure See Report - [id number]
--- NOTE | 2018-12-21 13:33 | CARDIOVERS ---
Cardioversion Cardioversion: Procedure: Synchronized Biphasic DC Cardioversion Indications: Atrial fibrillation Consent: Per the Patient Anesthesia: per Dr. Ga of pulmonology and critical care medicine with propofol 80 mg IV push total Procedure: Synchronized Biphasic DC Cardioversion: 200 J x1: Result: Atrial fibrillation Synchronized biphasic DC cardioversion: 300 J x 1: Result: Sinus rhythm Complications: no apparent complications This note was generated with [employer] software. It may contain incorrect words, spelling, and punctuation that were not noted in checking the note before signing.
== END 2018-12-21 14:00 | disposition home or self-care (01) ==
LOC: CLSP 10:52
PROVIDERS: Family Provider Family Medicine; PCP Family Medicine; Referring Provider Internal Medicine Cardiovascular Disease; Visit Provider Internal Medicine Cardiovascular Disease
DX: I48.2 Chronic atrial fibrillation (principal); I25.10 Atherosclerotic heart disease of native coronary artery without angina pectoris; G47.33 Obstructive sleep apnea (adult) (pediatric); J44.9 Chronic obstructive pulmonary disease, unspecified; C91.10 Chronic lymphocytic leukemia of B-cell type not having achieved remission; Z79.899 Other long term (current) drug therapy; Z79.82 Long term (current) use of aspirin; F32.9 Major depressive disorder, single episode, unspecified; E78.5 Hyperlipidemia, unspecified; Z79.01 Long term (current) use of anticoagulants; I10 Essential (primary) hypertension; F17.200 Nicotine dependence, unspecified, uncomplicated
CPT/HCPCS: 36591; 92960; 93005; J7040

== ENCOUNTER → 2019-01-07 10:12 | Outpatient (CLI) | payer MEDICARE, BC, SELFPAY ==
[2018-12-08 11:06] VITALS: BMI 34.6
[2019-01-07 11:30] LABS: T4 Free Direct 0.72 ng/dL (0.76-1.46); Thyroid Stim Hormone (TSH) 1.37 uIU/mL (0.358-3.74)
== END ==
PROVIDERS: Family Provider Family Medicine; PCP Family Medicine; Referring Provider Internal Medicine Pulmonary Disease; Visit Provider Internal Medicine Pulmonary Disease
DX: R53.83 Other fatigue (principal); G47.33 Obstructive sleep apnea (adult) (pediatric)
CPT/HCPCS: 36415; 84439; 84443

== ENCOUNTER → 2020-01-24 10:59 | Outpatient (CLI) | payer MEDICARE, BC, SELFPAY ==
[2019-11-29 13:32] VITALS: BMI 35.4
[2020-01-24 11:48] LABS: PSA,Total - Annual Screen 5.28 ng/mL (0.00-4.00)
== END ==
PROVIDERS: PCP Family Medicine; Referring Provider Urology; Visit Provider Urology
DX: Z12.5 Encounter for screening for malignant neoplasm of prostate (principal)
CPT/HCPCS: 36415; 84153; G0103

== ENCOUNTER 2020-02-14 11:06 | Day surgery (SDC) | payer MEDICARE, BC, SELFPAY ==
[2019-11-29 13:32] VITALS: BMI 35.4
--- NOTE | 2020-02-07 03:19 | HP_ITS ---
HPI HPI History of Present Illness Surgical H&P: Yes Details: KERON MAYER, is a 74 year old white male who presents to the office today for follow up of history of atrial fibrillation, s/p synchronized biphasic DC cardioversion on 12/21/2018, minimal coronary artery disease, hypertension, hyperlipidemia, carotid artery disease, obstructive sleep apnea with Bipap therapy, and chronic lymphatic leukemia with chemotherapy. Patient presented to office after evaluation at urologist's office. There was concerns for atrial fibrillation. His EKG at that time showed atrial fibrillation rate of 51 bpm. His Coreg was reduced to 3.125 mg p.o. twice daily. His EKG today continues to show atrial fibrillation. He has been on oral anticoagulation without interruption. He will proceed with outpatient cardioversion on 02/14/2020 and EKG follow-up on 02/21/2020 at 1:45 PM. He denies chest, arm, jaw, or neck discomfort. His exercise tolerance is stable. He denies symptoms of lightheadedness, dizziness, near syncope, or syncopal episodes. He denies claudication issues. He denies orthopnea, PND, fever, chills, blood in urine, blood in stool, or myalgia. He states noting fatigue. Intake Vital Signs 02/07/20 Height 5 ft 11 in 02/07/20 Weight: 255 lb 02/07/20 BP 117/65 02/07/20 Blood Pressure Location Lt brachial 02/07/20 Position Sitting 02/07/20 Respiration 18 02/07/20 Pulse 77 02/07/20 Pulse Source Monitor 02/07/20 Pulse Oximetry (%) 99 Intake Visit Reasons: Update H & P Anesthesiologists' Assistant Required: No Accompanied by: none Is patient in pain?: No Allergies No Known Allergies Allergy (Verified 02/07/20 14:31) Medications Aspirin [Adult Low Dose Aspirin EC] 81 mg PO DAILY 05/09/16 [History Confirmed 02/07/20] Albuterol Inhaler [Ventolin Hfa] 1 - 2 puff INHALATION Q4H PRN PRN 07/22/16 [History Confirmed 02/07/20] Loratadine [Claritin] 10 mg PO DAILY 09/03/16 [History Confirmed 02/07/20] atorvastatin 40 mg tablet 40 mg PO QHS tab 08/21/17 [History Confirmed 02/07/20] citalopram 40 mg tablet 20 mg PO QDAY tab 08/21/17 [History Confirmed 02/07/20] hydrochlorothiazide 12.5 mg tablet 12.5 mg PO QDAY tab 08/21/17 [History Confirmed 02/07/20] apixaban 5 mg tablet 5 mg PO BID #180 tab 01/24/19 [Rx Confirmed 02/07/20] HANDICAP Placard #1 ea 04/11/19 [Rx Confirmed 04/11/19] amlodipine 10 mg tablet 5 mg PO QHS #90 tab 01/24/20 [Rx Confirmed 02/07/20] carvedilol 6.25 mg tablet 3.125 mg PO BID tab 01/24/20 [History Confirmed 02/07/20] losartan 50 mg tablet 50 mg PO DAILY 02/07/20 [History Confirmed 02/07/20] [facility] Medical History Bruit of left carotid artery (Acute) Atherosclerosis of [place] coronary artery of [place] heart without angina pectoris (Chronic) Atrial fibrillation (Chronic) Pure hypercholesterolemia (Chronic) Essential (primary) hypertension (Chronic) Chronic lymphocytic leukemia (CLL), B-cell (Chronic) Edema of right lower extremity (Acute) Bruising (Acute) Chest discomfort (Acute) YURI (obstructive sleep apnea) (Chronic) Right carotid bruit (Chronic) Renal mass (Acute) Renal mass, left (Acute) Skin cancer of face (Acute) CLL (chronic lymphocytic leukemia) (Chronic) COPD (chronic obstructive pulmonary disease) (Chronic) Depression (Chronic) Diverticulitis (Chronic) History of cardioversion (Resolved ~12/21/18) Surgical History CYST REMOVAL FROM BACK (Chronic) History of arthroscopy of both knees (Chronic) History of colectomy (Chronic) History of tonsillectomy (Chronic) Previous back surgery (Chronic) RIGHT FOREARM SCREWS AND PLATES (Chronic) kidney tumor removed (Chronic) Family History Mother Throat cancer Father Heart disease Brother Hypertension Social History (Updated 02/07/20 @ 15:19 by NP. David Holloway, RAMONC) Smoking Status: Former smoker alcohol intake: current substance use type: does not use ROS Const Const: Positive for fatigue; negative for weakness, body ache, fever(s) or chills ENT ENT: Negative for dizziness Cardio Chest Pain: No Palpitations: No Edema: None Muscle aches with walking: None Resp Respiratory: Negative for SOB with activity, SOB at rest, SOB orthopnea\SOB lying down or paroxysmal nocturnal dyspnea GI GI: Negative nausea, vomiting blood/hematemesis, bright, red blood in stools or black,tarry stools : Negative for hematuria or frequent nighttime urination/ nocturia Musc Musc: Negative for muscle aches/ myalgia Skin Skin: Negative non-healing lesions or rash Neuro Neuro: Negative for dizziness, lightheadedness, near syncope, syncope, orthostatic symptoms or weakness Endo Endo: Positive for fatigue Allergy Allergy/Immunology: Negative for rash Cardiology Exam Const Appearance: cooperative, healthy appearing, comfortable and no acute distress Nutritional Appearance: average body habitus and obese Orientation: alert, awake and oriented x3 Head Head: normal to inspection Ears: hearing grossly normal bilaterally Nose: external nose normal Face and Sinus: face symmetric Mouth: oral mucosae normal Eyes General: appearance normal, both eyes and all related structures Eyelids: eyelids normal EOM: EOM intact bilaterally Neck Neck: normal visual inspection and no JVD Carotids: normal carotid upstroke Chest Chest inspection: normal inspection of the chest, symmetric chest movement and normal respiratory effort; negative cough Auscultation: Bilateral: Clear to Auscultation Cardio Rate: regular rate Rhythm: irregular rhythm Heart sounds: S1 normal and S2 normal; negative rub, gallop or murmur GI GI: normal to inspection and obese Neuro General: alert, awake, oriented x3 and CN's II-XI intact bilaterally Skin Skin: no rashes or lesions noted Extremities Pulses: Normal: Right Posterior Tibial Pulse, Left Posterior Tibial Pulse, Right Radial Pulse, Left Radial Pulse Lower Extremity Edema: None: Bilateral Psych Psychological: normal affect Assessment & Plan 1. Atrial fibrillation, unspecified type I48.91 DCC on 12/21/2018; Plan Patient's EKG in office continues to show atrial fibrillation. His heart rate is improved. He will proceed with outpatient cardioversion. He will continue with anticoagulant therapy. Based on long-term response, further recommendation will be made. This may include antiarrhythmic therapy or reevaluation with pcts/Dr. Mix for ablation procedure. At this time, his main symptom report is fatigue. Thus, hopefully by maintaining sinus rhythm his fatigue improves. He undergo a laboratory and radiological evaluation. He will also undergo magnesium evaluation to ensure stability. He was reminded of the importance of sleep apnea control. He was asked to continue risk factor and lifestyle modification. Orders Orders: 12 Lead EKG performed by BMS Today Magnesium Today 2. Atherosclerosis of [place] coronary artery of [place] heart without angina pectoris I25.10 Plan His heart catheterization in October 2017 showed minimal coronary artery disease. Medical management was recommended. Patient denies any chest pain, arm pain, jaw pain, neck pain, or new or worsening shortness of breath suggestive of angina at this time. We will continue to monitor. We will not make any medication regimen changes and will continue risk factor modification. Orders Orders: Magnesium Today 3. Essential (primary) hypertension I10 Plan Patient's blood pressure is well-controlled. We will continue to monitor. We will not make any medication regimen changes. He does not show that this tends to fluctuate. 4. Pure hypercholesterolemia E78.00 Plan Lipid panel from 07/07/2018 showed cholesterol: 111, HDL: 33, LDL: 46, and triglycerides: 159. He will continue current statin medication. Plan Detail Additional Comments He will proceed with cardioversion with Dr. Anderson on 02/14/2020. Thank you for allowing us to participate in the patients plan of care, if you have any questions please do not hesitate to call. This note was generated using a voice recognition system and there may be incorrect words, spelling or punctuation that were not noted when reviewing the office note prior to saving. Follow Up keep as is Coding Level of Care Code Off vis,est,level 3 Diagnoses Atrial fibrillation, unspecified type I48.91 ??Atrial fibrillation type: unspecified Atherosclerosis of [place] coronary artery of [place] heart without angina pectoris I25.10 Essential (primary) hypertension I10 Pure hypercholesterolemia E78.00 Coding Level of Care Code Off vis,est,level 3 Diagnoses Atrial fibrillation, unspecified type I48.91 ??Atrial fibrillation type: unspecified Atherosclerosis of [place] coronary artery of [place] heart without angina pectoris I25.10 Essential (primary) hypertension I10 Pure hypercholesterolemia E78.00 Supplemental Info Supplemental Information Echocardiogram from 09/30/2018: Interpretation Summary The study was technically difficult. Contrast injection was performed. Left ventricular systolic function is normal. The estimated ejection fraction is 65 %. Mild concentric left ventricular hypertrophy. The left atrium is moderately enlarged. The right atrium is mildly enlarged. There is mild mitral annular calcification. Trivial mitral valve insufficiency. Trivial tricuspid valve insufficiency. Unable to estimate RV systolic pressure/pulmonary artery pressure due to technically difficult study. Unable to assess diastolic dysfunction. Heart catheterization from October 2017 showed ejection fraction of 55%, LVEDP of 24 mmHg, left main is angiographically normal, ostial LAD with 25% stenosis, proximal LAD with mild luminal irregularities, diagonal 1 with proximal mild luminal irregularities, proximal circumflex with mild calcification and mild luminal irregularities, OM1 with ostial 25% stenosis, and RCA as angiographically normal. Medical therapy was recommended. Carotid duplex ultrasound from January 2016 showed mild, less than 50%, stenosis of right and left extracranial internal carotid. Stress test from October 2017 showed an area potentially compatible with stress- induced myocardial ischemia although soft tissue attenuation/artifact could not nicely be excluded with an ejection fraction of 70%. Labs LDL Cholesterol 46 mg/dL (0-130) 06/10/18 HDL Cholesterol 33 mg/dL (40-) L 06/10/18 Triglycerides 159 mg/dL (-199) 06/10/18 VLDL Cholesterol 32 mg/dL (5-40) 06/10/18 Diagnostics Electrocardiogram 02/07/20 02/07/20 1520 <Electronically signed by David Dillon> Date _ David Holloway [employer]
[2020-02-07 14:31] VITALS: BMI 35.5
--- NOTE | 2020-02-07 15:27 | RAD_ITS ---
STUDY: X-RAY CHEST REASON FOR EXAM: Male, 74 years old. PREOPERATIVE FOR CARDIOVERSION NEXT WEEK. AFIB TECHNIQUE: Frontal and lateral views COMPARISON: 06/16/2018 FINDINGS: Stable right-sided venous port. The lungs are expanded. Left basilar atelectasis. Normal size heart. Normal mediastinum and vel. Normal visualized pulmonary arteries. Normal visualized aortic arch and descending thoracic aorta. Degenerative changes of the thoracic spine. Normal visualized ribs, clavicles, and shoulders. There is no demonstrated abnormality of the visualized soft tissue structures of the upper abdomen. RAD/Chest PA and Lateral IMPRESSION: Left basilar atelectasis. Electronically Signed: Juve Ac DO at 19:18 EDT Tel [phone], Service support ,
[2020-02-07 16:04] LABS: Anion Gap 4 (5-15); BUN 19 mg/dL (7-18); BUN/Creat Ratio 20.7 RATIO (10-20); Calcium,Total 8.4 mg/dL (8.5-10.1); Chloride 105 mmol/L (98-107); Creatinine, Serum 0.92 mg/dL (0.70-1.30); EST Glomerular Filtration Rate 86 mL/min (>60); Est Glom Filt Rate - Afr Amer 104 mL/min (>60); Glucose 119 mg/dL (74-106); Magnesium 1.9 mg/dL (1.6-2.6); Potassium 3.7 mmol/L (3.5-5.1); Sodium Level 139 mmol/L (136-145)
[2020-02-07 16:48] LABS: International Normalized Ratio 1.4; Prothrombin Time (Protime)PT. 16.3 SECONDS (11.7-14.9)
[2020-02-10 12:06] VITALS: BMI 35.5
--- NOTE | 2020-02-14 07:59 | HP.PCM_ITS ---
Problem List (1) Atrial fibrillation Status: Chronic Qualifiers: Comment: DCCV on 12/21/2018; History and Physical Date of Admission: 02/14/20 [facility] [address] [place] [address] OFFICE VISIT Date of Service: 02/07/20 MR#: [id number] Acct: [id number] Name: KERON MAYER Rep #: [id number] : 1945 Provider: JOSE Holloway Age/Sex: 74/M Location: [facility] [place] Status: Signed HPI HPI History of Present Illness Surgical H&P: Yes Details: KERON MAYER, is a 74 year old white male who presents to the office today for follow up of history of atrial fibrillation, s/p synchronized biphasic DC cardioversion on 12/21/2018, minimal coronary artery disease, hypertension, hyperlipidemia, carotid artery disease, obstructive sleep apnea with Bipap therapy, and chronic lymphatic leukemia with chemotherapy. Patient presented to office after evaluation at urologist's office. There was concerns for atrial fibrillation. His EKG at that time showed atrial fibrillation rate of 51 bpm. His Coreg was reduced to 3.125 mg p.o. twice daily. His EKG today continues to show atrial fibrillation. He has been on oral anticoagulation without interruption. He will proceed with outpatient cardioversion on 02/14/2020 and EKG follow-up on 02/21/2020 at 1:45 PM. He denies chest, arm, jaw, or neck discomfort. His exercise tolerance is stable. He denies symptoms of lightheadedness, dizziness, near syncope, or syncopal episodes. He denies claudication issues. He denies orthopnea, PND, fever, chills, blood in urine, blood in stool, or myalgia. He states noting fatigue. Intake Vital Signs 02/07/20 Height 5 ft 11 in 02/07/20 Weight: 255 lb 02/07/20 BP 117/65 02/07/20 Blood Pressure Location Lt brachial 02/07/20 Position Sitting 02/07/20 Respiration 18 02/07/20 Pulse 77 02/07/20 Pulse Source Monitor 02/07/20 Pulse Oximetry (%) 99 Intake Visit Reasons: Update H & P Lap Polisher Required: No Accompanied by: none Is patient in pain?: No Allergies No Known Allergies Allergy (Verified 02/07/20 14:31) Medications Aspirin [Adult Low Dose Aspirin EC] 81 mg PO DAILY 05/09/16 [History Confirmed 02/07/20] Albuterol Inhaler [Ventolin Hfa] 1 - 2 puff INHALATION Q4H PRN PRN 07/22/16 [History Confirmed 02/07/20] Loratadine [Claritin] 10 mg PO DAILY 09/03/16 [History Confirmed 02/07/20] atorvastatin 40 mg tablet 40 mg PO QHS tab 08/21/17 [History Confirmed 02/07/20] citalopram 40 mg tablet 20 mg PO QDAY tab 08/21/17 [History Confirmed 02/07/20] hydrochlorothiazide 12.5 mg tablet 12.5 mg PO QDAY tab 08/21/17 [History Confirmed 02/07/20] apixaban 5 mg tablet 5 mg PO BID #180 tab 01/24/19 [Rx Confirmed 02/07/20] HANDICAP Placard #1 ea 04/11/19 [Rx Confirmed 04/11/19] amlodipine 10 mg tablet 5 mg PO QHS #90 tab 01/24/20 [Rx Confirmed 02/07/20] carvedilol 6.25 mg tablet 3.125 mg PO BID tab 01/24/20 [History Confirmed 02/07/20] losartan 50 mg tablet 50 mg PO DAILY 02/07/20 [History Confirmed 02/07/20] [facility] Medical History Bruit of left carotid artery (Acute) Atherosclerosis of [place] coronary artery of [place] heart without angina pectoris (Chronic) Atrial fibrillation (Chronic) Pure hypercholesterolemia (Chronic) Essential (primary) hypertension (Chronic) Chronic lymphocytic leukemia (CLL), B-cell (Chronic) Edema of right lower extremity (Acute) Bruising (Acute) Chest discomfort (Acute) YURI (obstructive sleep apnea) (Chronic) Right carotid bruit (Chronic) Renal mass (Acute) Renal mass, left (Acute) Skin cancer of face (Acute) CLL (chronic lymphocytic leukemia) (Chronic) COPD (chronic obstructive pulmonary disease) (Chronic) Depression (Chronic) Diverticulitis (Chronic) History of cardioversion (Resolved ~12/21/18) Surgical History CYST REMOVAL FROM BACK (Chronic) History of arthroscopy of both knees (Chronic) History of colectomy (Chronic) History of tonsillectomy (Chronic) Previous back surgery (Chronic) RIGHT FOREARM SCREWS AND PLATES (Chronic) kidney tumor removed (Chronic) Family History Mother Throat cancer Father Heart disease Brother Hypertension Social History (Updated 02/07/20 @ 15:19 by JOSE Cano) Smoking Status: Former smoker alcohol intake: current substance use type: does not use ROS Const Const: Positive for fatigue; negative for weakness, body ache, fever(s) or chills ENT ENT: Negative for dizziness Cardio Chest Pain: No Palpitations: No Edema: None Muscle aches with walking: None Resp Respiratory: Negative for SOB with activity, SOB at rest, SOB orthopnea\SOB lying down or paroxysmal nocturnal dyspnea GI GI: Negative nausea, vomiting blood/hematemesis, bright, red blood in stools or black,tarry stools : Negative for hematuria or frequent nighttime urination/ nocturia Musc Musc: Negative for muscle aches/ myalgia Skin Skin: Negative non-healing lesions or rash Neuro Neuro: Negative for dizziness, lightheadedness, near syncope, syncope, orthostatic symptoms or weakness Endo Endo: Positive for fatigue Allergy Allergy/Immunology: Negative for rash Cardiology Exam Const Appearance: cooperative, healthy appearing, comfortable and no acute distress Nutritional Appearance: average body habitus and obese Orientation: alert, awake and oriented x3 Head Head: normal to inspection Ears: hearing grossly normal bilaterally Nose: external nose normal Face and Sinus: face symmetric Mouth: oral mucosae normal Eyes General: appearance normal, both eyes and all related structures Eyelids: eyelids normal EOM: EOM intact bilaterally Neck Neck: normal visual inspection and no JVD Carotids: normal carotid upstroke Chest Chest inspection: normal inspection of the chest, symmetric chest movement and normal respiratory effort; negative cough Auscultation: Bilateral: Clear to Auscultation Cardio Rate: regular rate Rhythm: irregular rhythm Heart sounds: S1 normal and S2 normal; negative rub, gallop or murmur GI GI: normal to inspection and obese Neuro General: alert, awake, oriented x3 and CN's II-XI intact bilaterally Skin Skin: no rashes or lesions noted Extremities Pulses: Normal: Right Posterior Tibial Pulse, Left Posterior Tibial Pulse, Right Radial Pulse, Left Radial Pulse Lower Extremity Edema: None: Bilateral Psych Psychological: normal affect Assessment & Plan 1. Atrial fibrillation, unspecified type I48.91 DCCV on 12/21/2018; Plan Patient's EKG in office continues to show atrial fibrillation. His heart rate is improved. He will proceed with outpatient cardioversion. He will continue with anticoagulant therapy. Based on long-term response, further recommendation will be made. This may include antiarrhythmic therapy or reevaluation with laborer high density press/Dr. Mix for ablation procedure. At this time, his main symptom report is fatigue. Thus, hopefully by maintaining sinus rhythm his fatigue improves. He undergo a laboratory and radiological evaluation. He will also undergo magnesium evaluation to ensure stability. He was reminded of the importance of sleep apnea control. He was asked to continue risk factor and lifestyle modification. Orders Orders: 12 Lead EKG performed by BMS Today Magnesium Today 2. Atherosclerosis of [place] coronary artery of [place] heart without angina pectoris I25.10 Plan His heart catheterization in October 2017 showed minimal coronary artery disease. Medical management was recommended. Patient denies any chest pain, arm pain, jaw pain, neck pain, or new or worsening shortness of breath suggestive of angina at this time. We will continue to monitor. We will not make any medication regimen changes and will continue risk factor modification. Orders Orders: Magnesium Today 3. Essential (primary) hypertension I10 Plan Patient's blood pressure is well-controlled. We will continue to monitor. We will not make any medication regimen changes. He does not show that this tends to fluctuate. 4. Pure hypercholesterolemia E78.00 Plan Lipid panel from 07/07/2018 showed cholesterol: 111, HDL: 33, LDL: 46, and triglycerides: 159. He will continue current statin medication. Plan Detail Additional Comments He will proceed with cardioversion with Dr. Anderson on 02/14/2020. Thank you for allowing us to participate in the patients plan of care, if you have any questions please do not hesitate to call. This note was generated using a voice recognition system and there may be incorrect words, spelling or punctuation that were not noted when reviewing the office note prior to saving. Follow Up keep as is Coding Level of Care Code Off vis,est,level 3 Diagnoses Atrial fibrillation, unspecified type I48.91 ??Atrial fibrillation type: unspecified Atherosclerosis of [place] coronary artery of [place] heart without angina pectoris I25.10 Essential (primary) hypertension I10 Pure hypercholesterolemia E78.00 Coding Level of Care Code Off vis,est,level 3 Diagnoses Atrial fibrillation, unspecified type I48.91 ??Atrial fibrillation type: unspecified Atherosclerosis of [place] coronary artery of [place] heart without angina pectoris I25.10 Essential (primary) hypertension I10 Pure hypercholesterolemia E78.00 Supplemental Info Supplemental Information Echocardiogram from 09/30/2018: Interpretation Summary The study was technically difficult. Contrast injection was performed. Left ventricular systolic function is normal. The estimated ejection fraction is 65 %. Mild concentric left ventricular hypertrophy. The left atrium is moderately enlarged. The right atrium is mildly enlarged. There is mild mitral annular calcification. Trivial mitral valve insufficiency. Trivial tricuspid valve insufficiency. Unable to estimate RV systolic pressure/pulmonary artery pressure due to technically difficult study. Unable to assess diastolic dysfunction. Heart catheterization from October 2017 showed ejection fraction of 55%, LVEDP of 24 mmHg, left main is angiographically normal, ostial LAD with 25% stenosis, proximal LAD with mild luminal irregularities, diagonal 1 with proximal mild luminal irregularities, proximal circumflex with mild calcification and mild lum inal irregularities, OM1 with ostial 25% stenosis, and RCA as angiographically normal. Medical therapy was recommended. Carotid duplex ultrasound from January 2016 showed mild, less than 50%, stenosis of right and left extracranial internal carotid. Stress test from October 2017 showed an area potentially compatible with stress- induced myocardial ischemia although soft tissue attenuation/artifact could not nicely be excluded with an ejection fraction of 70%. Labs LDL Cholesterol 46 mg/dL (0-130) 06/10/18 HDL Cholesterol 33 mg/dL (40-) L 06/10/18 Triglycerides 159 mg/dL (-199) 06/10/18 VLDL Cholesterol 32 mg/dL (5-40) 06/10/18 Diagnostics Electrocardiogram 02/07/20 02/07/20 1520 <Electronically signed by David Dillon> Date _ [facility] JOSE Portillo Signature: Date (if applicable) CC: Dr. Med Villanueva MD ~ I have re-examined the patient. There are no clinical changes since date of exam.
--- NOTE | 2020-02-14 12:34 | CARDIOVERS ---
Cardioversion Cardioversion: Date: 02-14-2020 Procedure: Synchronized Biphasic DC Cardioversion Indications: Atrial fibrillation Consent: Per the Patient Anesthesia: per Dr. Ga of pulmonology and critical care medicine with propofol 60 mg IV push total Procedure: Synchronized Biphasic DC Cardioversion: 200 J x1: Result: Atrial fibrillation Synchronized biphasic DC cardioversion: 300 J x1: Result: Sinus rhythm Complications: no apparent complications This note was generated with LiveReation software. It may contain incorrect words, spelling, and punctuation that were not noted in checking the note before signing.
--- NOTE | 2020-02-14 12:48 | PRO.PCM_ITS ---
Procedure Report Date of Procedure: 02/14/20 CONSCIOUS SEDATION REPORT DATE OF SERVICE: February 14, 2020 BRIEF HISTORY OF PRESENT ILLNESS: The patient is a 75-year-old male that presents to [facility] for an elective outpatient cardioversion due to underlying atrial fibrillation. The patient denies a previous history of any anesthetic complications. The patient did undergo a prior cardioversion in December 2018, during which time, he required a total of 80 mg of propofol throughout the procedure. He does confirm a history of obstructive sleep apnea, for which he reports compliance with the use of nocturnal Pap therapy. In addition, he does report having been diagnosed with COPD previously and does occasionally utilize tobacco products. The patient is currently anticoagulated on Eliquis. His last surface echocardiogram revealed an ejection fraction of approximately 65%. PHYSICAL EXAMINATION: VITAL SIGNS: Reviewed and were acceptable. GENERAL: The patient is a male, in no apparent distress, speaking in full sentences. HEENT: Normocephalic, atraumatic. Mucous membranes are moist and pink. Good mouth opening noted. Trachea is midline. Large neck circumference. CHEST: S1, S2 irregularly irregular. No murmurs, rubs or gallops were noted. LUNGS: Clear to auscultation bilaterally without appreciable wheezes, rales or rhonchi. ABDOMEN: Soft, nontender, nondistended. Positive bowel sounds. EXTREMITIES: There is no clubbing or cyanosis. + Lower symmetry edema ASA Class: II DESCRIPTION OF PROCEDURE: After confirmation of informed consent, the patient's anesthesia plan was reviewed in detail. Propofol was chosen. Risks and benefits were reviewed and the patient agreed to proceed. At 1217, the patient was given 60 mg of propofol. The patient achieved an appropriate level of sedation and subsequently received two separate cardioversion attempts, one at 200 J and a second at 300 J. Normal sinus rhythm was restored after the last cardioversion attempt. The patient was monitored until 1228, at which time, he reached his baseline mental status and function. The patient tolerated the procedure well. COMPLICATIONS: None ESTIMATED BLOOD LOSS: None RECOMMENDATIONS: Okay to recover in usual fashion. 9xxxx: Other Procedure See Report - [id number]
== END 2020-02-14 13:25 | disposition home or self-care (01) ==
LOC: CLSP 11:08
PROVIDERS: Nurse Practitioner Family; PCP Family Medicine; Referring Provider Internal Medicine Cardiovascular Disease; Visit Provider Internal Medicine Cardiovascular Disease
DX: I48.91 Unspecified atrial fibrillation (principal); I11.9 Hypertensive heart disease without heart failure; I25.10 Atherosclerotic heart disease of native coronary artery without angina pectoris; R09.89 Other specified symptoms and signs involving the circulatory and respiratory systems; E78.00 Pure hypercholesterolemia, unspecified; C91.10 Chronic lymphocytic leukemia of B-cell type not having achieved remission; J44.9 Chronic obstructive pulmonary disease, unspecified; G47.33 Obstructive sleep apnea (adult) (pediatric); F32.9 Major depressive disorder, single episode, unspecified; E66.9 Obesity, unspecified; Z68.35 Body mass index [BMI] 35.0-35.9, adult; Z79.01 Long term (current) use of anticoagulants; Z79.82 Long term (current) use of aspirin; Z79.899 Other long term (current) drug therapy; Z87.891 Personal history of nicotine dependence
CPT/HCPCS: 36415; 71046; 80048; 83735; 85610; 92960; 93005; J7040

== ENCOUNTER 2020-08-07 11:04 | Day surgery (SDC) | payer MEDICARE, BC, SELFPAY ==
[2020-07-31 11:09] VITALS: BMI 34.8
--- NOTE | 2020-07-31 12:07 | RAD_ITS ---
STUDY: X-RAY CHEST REASON FOR EXAM: Male, 75 years old. Chest pain. TECHNIQUE: PA and lateral chest. COMPARISON: February 07, 2020. FINDINGS: Right-sided port tip in the mid superior vena cava. No pneumothorax. The lungs are clear and expanded. There is no demonstrated pleural abnormality. Minimal left basilar subsegmental atelectasis. Normal size heart. Normal mediastinum and vel. Normal visualized pulmonary arteries. Normal visualized aortic arch and descending thoracic aorta. Normal visualized thoracic spine. Normal visualized ribs, clavicles, and shoulders. There is no demonstrated abnormality of the visualized soft tissue structures of the upper abdomen. RAD/Chest PA and Lateral IMPRESSION: No acute cardiopulmonary disease. Electronically Signed: Walter Barriga MD at 6:55 EST , Service support ,
[2020-08-06 09:43] VITALS: BMI 34.8
--- NOTE | 2020-08-06 18:02 | PCM.HP.BLA ---
Problem List (1) Atrial fibrillation Status: Chronic Qualifiers: Comment: DCCV on 12/21/2018; History and Physical Date of Admission: 08/07/20 [facility] [address] [place] [address] OFFICE VISIT Date of Service: 07/31/20 MR#: [id number] Acct: [id number] Name: KERON MAYER Rep #: [id number] : 1945 Provider: YUNIER Hancock Age/Sex: 75/M [place] [facility] Status: Signed HPI HPI History of Present Illness Details: This is a 25-year-old gentleman that presents here today for concerns over atrial fibrillation. He called our office yesterday stating that he felt like he was back in atrial fibrillation. He does have a history of atrial fibrillation, s/p synchronized biphasic DC cardioversion on 12/21/2018 & 02/2020, minimal coronary artery disease, hypertension, hyperlipidemia, carotid artery disease, obstructive sleep apnea with Bipap therapy, and chronic lymphatic leukemia with chemotherapy. Pt feels that he was in Atrial Fib since last week. He questions of this was related to a shock he had received while cleaning his stove. He finds that he is more SOB and is fatigue. He also notes lower Bp readings during this. This has improved. He is not aware of the palpitations, just feels more tired. He does not have any edema. He initially had lightheadedness with his lower BP readings. He has not stopped his Eliquis recently. EKG today demonstrates atrial fibrillation. Intake Vital Signs 07/31/20 Height 5 ft 11 in 07/31/20 Weight: 250 lb 07/31/20 BP 112/65 07/31/20 Blood Pressure Location Lt brachial 07/31/20 Position Sitting 07/31/20 Respiration 18 07/31/20 Pulse 75 07/31/20 Pulse Source Monitor 07/31/20 Pulse Oximetry (%) 95 Intake Visit Reasons: Back in a-fib Tim Route Salesperson Required: No Accompanied by: none Is patient in pain?: No Allergies No Known Allergies Allergy (Verified 07/31/20 11:04) Medications Aspirin [Adult Low Dose Aspirin EC] 81 mg PO DAILY 12/02/16 [History Confirmed 07/31/20] Albuterol Inhaler [Ventolin Hfa] 1 - 2 puff INHALATION Q4H PRN PRN 07/22/16 [History Confirmed 07/31/20] Loratadine [Claritin] 10 mg PO DAILY 09/03/16 [History Confirmed 07/31/20] atorvastatin 40 mg tablet 40 mg PO QHS tab 08/21/17 [History Confirmed 07/31/20] citalopram 40 mg tablet 20 mg PO QDAY tab 08/21/17 [History Confirmed 07/31/20] HANDICAP Placard #1 ea 04/11/19 [Rx Confirmed 04/11/19] amlodipine 10 mg tablet 5 mg PO QHS #90 tab 01/24/20 [Rx Confirmed 07/31/20] carvedilol 6.25 mg tablet 6.25 mg PO BID tab 01/24/20 [History Confirmed 07/31/20] losartan 50 mg tablet 25 mg PO DAILY 02/07/20 [History Confirmed 07/31/20] hydrochlorothiazide 25 mg tablet 25 mg PO QDAY #30 tab 02/21/20 [Rx Confirmed 07/31/20] apixaban 5 mg tablet 5 mg PO BID #180 tab 03/01/20 [Rx Confirmed 07/31/20] Doxazosin Mesylate [Cardura] 2 mg PO QHS 06/05/20 [History Confirmed 07/31/20] PFSH Medical History Bruit of left carotid artery (Acute) Atherosclerosis of [place] coronary artery of [place] heart without angina pectoris (Chronic) Atrial fibrillation (Chronic) Pure hypercholesterolemia (Chronic) Essential (primary) hypertension (Chronic) Chronic lymphocytic leukemia (CLL), B-cell (Chronic) Edema of right lower extremity (Acute) Bruising (Acute) Chest discomfort (Acute) YURI (obstructive sleep apnea) (Chronic) Right carotid bruit (Chronic) Renal mass (Acute) Renal mass, left (Acute) Skin cancer of face (Acute) CLL (chronic lymphocytic leukemia) (Chronic) COPD (chronic obstructive pulmonary disease) (Chronic) Depression (Chronic) Diverticulitis (Chronic) History of cardioversion (Resolved ~02/14/20) Surgical History CYST REMOVAL FROM BACK (Chronic) History of arthroscopy of both knees (Chronic) History of colectomy (Chronic) History of tonsillectomy (Chronic) Previous back surgery (Chronic) RIGHT FOREARM SCREWS AND PLATES (Chronic) kidney tumor removed (Chronic) Family History Mother Throat cancer Father Heart disease Brother Hypertension Social History (Updated 07/31/20 @ 13:56 by Carolyn FAYE, PA) Smoking Status: Former smoker alcohol intake: current substance use type: does not use ROS Const Const: Positive for fatigue; negative for weakness, fever(s) or headache(s) Eyes Eyes: Negative for blind spots, loss of peripheral vision or transient loss of vision ENT ENT: Positive for dizziness; negative for headache(s), tinnitus or Nosebleed/epistaxis Cardio Chest Pain: No Palpitations: No Edema: None Muscle aches with walking: None Resp Respiratory: Positive for SOB with activity; negative for SOB at rest, SOB orthopnea\SOB lying down or Cough GI GI: Negative nausea, vomiting, heartburn or vomiting blood/hematemesis : Negative for hematuria Musc Musc: Negative for muscle aches/ myalgia Neuro Neuro: Positive for dizziness; negative for lightheadedness, near syncope, syncope, orthostatic symptoms, headache(s) or weakness James Hematologic/Lymphatic: Negative for easy bleeding Endo Endo: Positive for fatigue Cardiology Exam Const Appearance: cooperative, healthy appearing, comfortable, no acute distress, well developed and well groomed Nutritional Appearance: average body habitus, well nourished and obese Orientation: alert, awake and oriented x3 Head Head: normal to inspection, normocephalic and atraumatic Ears: hearing grossly normal bilaterally Nose: external nose normal Face and Sinus: face symmetric Eyes Eyelids: eyelids normal Conjunctivae: conjunctivae normal Pupils: PERRL EOM: EOM intact bilaterally Neck Neck: normal visual inspection, full ROM and no JVD Carotids: normal carotid upstroke Chest Chest inspection: normal inspection of the chest, symmetric chest movement and normal respiratory effort; negative cough Auscultation: Bilateral: Clear to Auscultation Cardio Rate: regular rate Rhythm: irregularly irregular Heart sounds: S1 normal and S2 normal; negative rub, gallop or murmur GI GI: normal to inspection, soft, bowel sounds present and obese Neuro General: alert, awake, oriented x3 and moves all extremities Skin Skin: no rashes or lesions noted Extremities Pulses: Normal: Right Posterior Tibial Pulse, Left Posterior Tibial Pulse, Right Radial Pulse, Left Radial Pulse Lower Extremity Edema: +1: Bilateral Psych Psychological: normal affect Assessment & Plan 1. Persistent atrial fibrillation I48.19 Plan Patient is symptomatic with his atrial fibrillation. He has not had any interruption to his Eliquis. His rate is controlled. Have him scheduled for a cardioversion next week. Patient Instructions Your cardioversion is scheduled for 08/07, you arrive at 1100 and your procedure is at 1230 Nothing to eat or drink after midnight You will need a truss driver helper In the morning with a small sip of water take all of you morning medications except your hydrochlorothiazide Orders Orders: Cardioversion Today Basic Metabolic Profile (BMP) Today Chest PA and Lateral Today 2. Atherosclerosis of [place] coronary artery of [place] heart without angina pectoris I25.10 Plan Stable, from a cardiac standpoint patient does not have any symptoms of angina. We recommend that they continue with current aggressive medical management and risk factor modification. Orders Orders: Cardioversion Today Basic Metabolic Profile (BMP) Today Chest PA and Lateral Today 3. Essential hypertension I10 Plan Blood pressure is well controlled on current medications, we do not recommend any changes at this time. Orders Orders: Cardioversion Today Basic Metabolic Profile (BMP) Today Chest PA and Lateral Today Plan Detail Other Orders Orders: 12 Lead EKG performed by BMS Today I48.91 Cardioversion Today E78.00, G47.33 Basic Metabolic Profile (BMP) Today E78.00, G47.33 Chest PA and Lateral Today E78.00, G47.33 Follow Up 07/31/20 (keep as is with David ) 07/31/20 (EKG appt one week from cardioversion on 08/07) Coding Level of Care Code Off vis,est,level 4 Diagnoses Persistent atrial fibrillation I48.19 Atherosclerosis of [place] coronary artery of [place] heart without angina pectoris I25.10 Essential hypertension I10 Coding Level of Care Code Off vis,est,level 4 Diagnoses Persistent atrial fibrillation I48.19 Atherosclerosis of [place] coronary artery of [place] heart without angina pectoris I25.10 Essential hypertension I10 Supplemental Info Supplemental Information Echocardiogram from 09/30/2018: Interpretation Summary The study was technically difficult. Contrast injection was performed. Left ventricular systolic function is normal. The estimated ejection fraction is 65 %. Mild concentric left ventricular hypertrophy. The left atrium is moderately enlarged. The right atrium is mildly enlarged. There is mild mitral annular calcification. Trivial mitral valve insufficiency. Trivial tricuspid valve insufficiency. Unable to estimate RV systolic pressure/pulmonary artery pressure due to technically difficult study. Unable to assess diastolic dysfunction. Heart catheterization from October 2017 showed ejection fraction of 55%, LVEDP of 24 mmHg, left main is angiographically normal, ostial LAD with 25% stenosis, proximal LAD with mild luminal irregularities, diagonal 1 with proximal mild luminal irregularities, proximal circumflex with mild calcification and mild luminal irregularities, OM1 with ostial 25% stenosis, and RCA as angiographically normal. Medical therapy was recommended. Carotid duplex ultrasound from January 2016 showed mild, less than 50%, stenosis of right and left extracranial internal carotid. Stress test from October 2017 showed an area potentially compatible with stress-induced myocardial ischemia although soft tissue attenuation/artifact could not nicely be excluded with an ejection fraction of 70%. Labs LDL Cholesterol 46 mg/dL (0-130) 06/10/18 HDL Cholesterol 33 mg/dL (40-) L 06/10/18 Triglycerides 159 mg/dL (-199) 06/10/18 VLDL Cholesterol 32 mg/dL (5-40) 06/10/18 Diagnostics Electrocardiogram 07/31/20 Chest X-Ray 07/31/20 07/31/20 1356 <Electronically signed by Carolyn FAYE> Date Carolyn FAYE The patient has been recommended for further evaluation and care with synchronized biphasic DC cardioversion. The procedure and risks were discussed with the patient. He was agreeable to this approach. I have re-examined the patient. There are no clinical changes since date of exam. Procedure Criteria Procedure Type: Elective COVID Risk Discussion: The surgeon/proceduralist and patient have discussed in detail the risk of exposure to and/or potential harm posed by the COVID-19 virus with having a surgery/procedure at this time versus the risk of delaying the surgery/procedure. It is not possible to know either the risk of delaying the surgery or procedure or chance of getting an infection with perfect accuracy, but a joint decision was made between the patient and the surgeon/proceduralist to proceed at this time with the scheduled surgery/procedure as indicated on the consent form.
--- NOTE | 2020-08-07 12:51 | PCM.OP.PRO ---
Problem List (1) Atrial fibrillation Status: Chronic Qualifiers: Comment: LISBET on 12/21/2018; (2) Atherosclerosis of [place] coronary artery of [place] heart without angina pectoris Status: Chronic (3) Chronic lymphocytic leukemia (CLL), B-cell Status: Chronic Qualifiers: Leukemia Active/Remission status: in remission Qualified Code(s): C91.11 - Chronic lymphocytic leukemia of B-cell type in remission (4) Essential (primary) hypertension Status: Chronic (5) YURI (obstructive sleep apnea) Status: Chronic (6) Pure hypercholesterolemia Status: Chronic Procedure Report Date of Procedure: 08/07/20 - She has sedation CONSCIOUS SEDATION REPORT BRIEF HISTORY OF PRESENT ILLNESS: The patient is a 75-year-old male who presented to [facility] for an elective outpatient cardioversion due to underlying atrial fibrillation. The patient reports no PO intake since midnight. The patient does have a history of obstructive sleep apnea. The patient reports a history of smoking and COPD. The patient denies any recent constitutional symptoms such as fevers, chills, nausea or vomiting. The patient denies previous anesthetic complications. Patient's last known ejection fraction was 65%. Patient has had 2 successful previous cardioversions using propofol. PHYSICAL EXAMINATION: VITAL SIGNS: Reviewed and were acceptable. GENERAL: The patient is a male, in no apparent distress, speaking in full sentences. HEENT: Normocephalic, atraumatic. Mucous membranes are moist and pink. Good mouth opening noted. Trachea is midline. Good neck mobility. MP IV CHEST: S1, S2 irregularly irregular. No murmurs, rubs or gallops were noted. LUNGS: Clear to auscultation bilaterally without appreciable wheezes, rales or rhonchi. ABDOMEN: Soft, nontender, nondistended. Positive bowel sounds. EXTREMITIES: There is no clubbing, cyanosis or edema. ASA Class: II DESCRIPTION OF PROCEDURE: After confirmation of informed consent, the patient's anesthesia plan was reviewed in detail. Propofol was chosen. Risks and benefits were reviewed and the patient agreed to proceed. At 12:08 PM, the patient was given 40 mg of propofol. The patient achieved an appropriate level of sedation and received 1 attempt synchronized cardioversion, at [address] Anderson at the bedside. This was successful in achieving normal sinus rhythm. The patient was monitored until 12:20 PM, at which time the patient reached their baseline mental status and function. The patient tolerated the procedure well. COMPLICATIONS: None ESTIMATED BLOOD LOSS: None RECOMMENDATIONS: Okay to recover in usual fashion. 9xxxx: Other Procedure See Report - [id number]
--- NOTE | 2020-08-07 14:00 | CARDIOVERS_ITS ---
Cardioversion Cardioversion: Date: 08-07-2020 Procedure: Synchronized Biphasic DC Cardioversion Indications: Atrial fibrillation Consent: Per the Patient Anesthesia: per Dr. Diaz of pulmonology and critical care medicine with propofol 40 mg IV push total Procedure: Synchronized Biphasic DC Cardioversion: 200 J x 1: Result: Sinus rhythm Complications: no apparent complications This note was generated with [employer] dictation software. It may contain incorrect words, spelling, and punctuation that were not noted in checking the note before signing.
== END 2020-08-07 13:17 | disposition home or self-care (01) ==
LOC: CLSP 11:06
PROVIDERS: PCP Family Medicine; Referring Provider Internal Medicine Cardiovascular Disease; Visit Provider Internal Medicine Cardiovascular Disease
DX: I48.19 Other persistent atrial fibrillation (principal); I25.10 Atherosclerotic heart disease of native coronary artery without angina pectoris; I10 Essential (primary) hypertension; E78.00 Pure hypercholesterolemia, unspecified; J44.9 Chronic obstructive pulmonary disease, unspecified; C91.11 Chronic lymphocytic leukemia of B-cell type in remission; G47.33 Obstructive sleep apnea (adult) (pediatric); F32.9 Major depressive disorder, single episode, unspecified; Z79.82 Long term (current) use of aspirin; Z79.01 Long term (current) use of anticoagulants; Z79.899 Other long term (current) drug therapy; Z87.891 Personal history of nicotine dependence
CPT/HCPCS: 36591; 71046; 80048; 92960; 93005; A4216

== ENCOUNTER 2020-08-14 08:00 | Outpatient (RCR) | payer MEDICARE, SELFPAY ==
[2020-08-06 09:43] VITALS: BMI 34.8
[2020-08-14] MEDS: COVID-19 VACC, MRNA(PFIZER)/PF 30 MCG/0.3 ML SYRINGE IM (13:20)
[2020-09-04] MEDS: COVID-19 VACC, MRNA(PFIZER)/PF 30 MCG/0.3 ML SYRINGE IM (13:15)
== END 2020-11-13 23:59 ==
LOC: IMMUN 08:00
PROVIDERS: PCP Family Medicine; Visit Provider Family Medicine
DX: Z23 Encounter for immunization (principal)
CPT/HCPCS: 0001A; 0002A; 91300

== ENCOUNTER → 2020-08-27 08:30 | Outpatient (CLI) | payer MEDICARE, BC, SELFPAY ==
[2020-08-06 09:43] VITALS: BMI 34.8
[2020-08-27 09:26] LABS: AST(SGOT) 19 U/L (15-37); Alanine Aminotransfer ALT/SGPT 38 U/L (16-61); Alkaline Phosphatase 74 U/L (45-117); Bilirubin, Direct 0.23 mg/dL (0.00-0.30); Cholesterol 130 mg/dL (200); Globulin 2.6 g/dL (2.2-4.2); High Density Lipoprotein 46 mg/dL; Protein, Total 6.6 g/dL (6.4-8.2); Triglycerides 111 mg/dL; Very Low Density Lipoprotein 22 mg/dL (5-40)
[2020-08-27 10:41] LABS: PSA,Total- Diagnostic 4.21 ng/mL (0.0-4.0)
== END ==
PROVIDERS: PCP Family Medicine; Referring Provider Internal Medicine Cardiovascular Disease; Visit Provider Internal Medicine Cardiovascular Disease
DX: R97.20 Elevated prostate specific antigen [PSA] (principal); E78.00 Pure hypercholesterolemia, unspecified
CPT/HCPCS: 36415; 80061; 80076; 84153

== ENCOUNTER → 2020-12-20 14:42 | Outpatient (CLI) | payer MEDICARE, BC, SELFPAY ==
[2020-11-20 13:55] VITALS: BMI 33.7
[2020-12-20 16:19] LABS: Absolute Lymphocyte Count 1.92 X10^3/uL (0.83-4.51); Absolute Neutrophil Count 3.9 X10^3/uL (2.0-7.7); Basophil# 0.03 X10^3/uL; Basophil% 0.5 % (0-1); Eosinophil# 0.15 X10^3/uL; Eosinophils% 2.3 % (0-5); Hematocrit 41.2 % (40-54); Hemoglobin 13.6 g/dL (13.0-16.5); Lymphocyte # 1.92 X10^3/ul (0.83-4.51); Lymphocyte % 29.3 % (19-41); Mean Corpuscular Hgb 28.6 pg (27.0-32.0); Mean Corpuscular Volume 86.7 fL (80-94); Mean Platelet Vol. 10.3 fl (6.2-12.0); Monocyte# 0.56 X10^3/uL; Monocyte% 8.5 % (0-10); NRBC Flagged by Analyzer 0 % (0-5); Neutrophil # 3.88 X10^3/uL (2.7-7.7); Neutrophil % 59.1 % (47-70); Platelet Count 207 K/mm3 (150-450); RBC Distribution Width CV 13.2 % (11.6-14.6); RBC Distribution Width SD 41.9 fl (35.1-43.9); Red Blood Count 4.75 M/mm3 (4.6-6.2); White Blood Count 6.6 K/mm3 (4.4-11.0)
[2020-12-20 16:39] LABS: Anion Gap 7 (5-15); BUN 17 mg/dL (7-18); BUN/Creat Ratio 19.9 RATIO (10-20); Calcium,Total 8.8 mg/dL (8.5-10.1); Chloride 100 mmol/L (98-107); Creatinine, Serum 0.86 mg/dL (0.70-1.30); EST Glomerular Filtration Rate 93 mL/min (>60); Est Glom Filt Rate - Afr Amer 112 mL/min (>60); Glucose 107 mg/dL (74-106); Magnesium 1.9 mg/dL (1.6-2.6); Potassium 3.6 mmol/L (3.5-5.1); Sodium Level 140 mmol/L (136-145); T4 Free Direct 0.88 ng/dL (0.76-1.46)
[2020-12-20 17:00] LABS: BNP,B-Type NATRIURETIC PEPTIDE 105.4 pg/mL (0-100)
== END ==
PROVIDERS: PCP Family Medicine; Referring Provider Nurse Practitioner Family; Visit Provider Nurse Practitioner Family
DX: I25.10 Atherosclerotic heart disease of native coronary artery without angina pectoris (principal); I48.91 Unspecified atrial fibrillation; I10 Essential (primary) hypertension; E87.6 Hypokalemia; R06.09 Other forms of dyspnea
CPT/HCPCS: 36415; 80048; 83735; 83880; 84439; 84443; 85025

== ENCOUNTER 2021-01-15 09:29 | Inpatient (IN) | payer MEDICARE, BC, SELFPAY ==
[2020-12-26 09:04] VITALS: BMI 33.2
[2021-01-15] VITALS (10 sets, daily range): BP systolic 120–132; BP diastolic 72–91; PULSE 33–81; RESP 16–18; TEMP 36.7–36.9; O2SAT 93–97; BMI 33.3
--- NOTE | 2021-01-15 08:37 | HP.PCM.CAR_ITS ---
Documented by User: David Holloway NP, EXTENSION SPECIALIST-C 01/15/21 13:01 HPI - General General Date of Admission: 01/15/21 HPI Narrative KERON MAYER, is a 75 M who presents to the hospital today for initiation of antiarrhythmic therapy. He does have a history of atrial fibrillation, s/p synchronized biphasic DC cardioversion on 12/21/2018, 02/2020 and 08/07/2020, minimal coronary artery disease, hypertension, hyperlipidemia, carotid artery disease, obstructive sleep apnea with Bipap therapy, and chronic lymphatic leukemia with chemotherapy. Patient was last seen as an outpatient on 12/26/2020. His EKG on that day continue to show atrial fibrillation. His heart rate was controlled. Options were reviewed with him in regards to continual rhythm control. Through mutual discussion, is decided to proceed with hospitalization and initiation of antiarrhythmic therapy. He denies chest, arm, jaw, or neck discomfort. He denies symptoms of shortness of breath with exertion, shortness of breath at rest, orthopnea, PND, sudden weight gain, or bilateral lower extremity edema. He denies chronic cough. He denies palpitations, lightheadedness, dizziness, near syncope, or syncopal episodes. He denies claudication issues. He denies fever or chills. He denies blood in urine, blood in stool, or epistaxis. He denies myalgia. He denies unexplainable fatigue. His exercise tolerance is stable. [facility]LY [facility] Medical History (Updated 01/15/21 @ 11:[address] Nimesh Rankin MD) Atherosclerosis of [place] coronary artery of [place] heart without angina pectoris Atrial fibrillation Bruising Bruit of left carotid artery Chest discomfort Chronic lymphocytic leukemia (CLL), B-cell CLL (chronic lymphocytic leukemia) COPD (chronic obstructive pulmonary disease) Depression Diverticulitis Edema of right lower extremity Essential (primary) hypertension YURI (obstructive sleep apnea) Pure hypercholesterolemia Renal mass Renal mass, left Right carotid bruit Skin cancer of face Home Medications albuterol sulfate 1 - 2 puff INHALATION Q4H PRN PRN 07/22/16 [History Last Taken 01/15/21] loratadine 10 mg PO DAILY 09/03/16 [History Last Taken 01/15/21] atorvastatin 40 mg tablet 40 mg PO QHS tab 08/21/17 [History Last Taken 01/14/21] HANDICAP Placard #1 ea 04/11/19 [Rx Last Taken Unknown] carvedilol 6.25 mg tablet 6.25 mg PO BID tab 01/24/20 [History Last Taken 01/15/21] losartan 50 mg tablet 25 mg PO DAILY 02/07/20 [History Last Taken 01/15/21] doxazosin 2 mg PO QHS 06/05/20 [History Last Taken 01/14/21] amlodipine 5 mg PO QHS 01/15/21 [History Last Taken 01/14/21] apixaban [Eliquis] 5 mg PO BID 01/15/21 [History Last Taken 01/15/21] furosemide 40 mg PO DAILY 01/15/21 [History Last Taken 01/15/21] Allergy/AdvReac Type Severity Reaction Status Date / Time No Known Allergies Allergy Verified 12/26/20 08:59 Family History Mother Throat cancer Father Heart disease Brother Hypertension Sister Thyroid disorder Son Diabetes Surgical History CYST REMOVAL FROM BACK History of arthroscopy of both knees History of cardioversion (~08/07/20) History of colectomy History of tonsillectomy kidney tumor removed Previous back surgery RIGHT FOREARM SCREWS AND PLATES Social History Smoking Status: Former smoker how long ago did patient quit smokin years ago alcohol intake: current alcohol intake frequency: 0-2 drinks per day substance use type: does not use caffeine: Yes Type: coffee Number of servings: 1 ROS ROS Narrative Patient denies any symptoms. He states feeling well. Constitutional Constitutional: Denies chills, fatigue or weakness Eyes Eyes: Reports none ENT HEENT: Reports none Cardiovascular Cardiovascular: Reports irregular heart rhythm; Denies chest pain, chest pain at rest, chest pain with activity, claudication, cyanosis, diaphoresis, dizziness, dyspnea, dyspnea at rest, dyspnea on exertion, edema, fatigue, flutter in chest, leg edema, lightheadedness, orthopnea, palpitations, paroxysmal nocturnal dyspnea, pedal edema or syncope Respiratory/Chest Respiratory/Chest: Denies chest tightness, cough, dyspnea on exertion, shortness of breath at rest or shortness of breath with exertion Gastrointestinal Gastrointestinal: Reports none Genitourinary Genitourinary: Reports none Musculoskeletal Musculoskeletal: Reports none Integumentary Integumentary: Reports none Neurologic Neurologic: Reports none Psychiatric Psychiatric: Reports none Endocrine Endocrinology: Reports none Hematologic/Lymphatic Hematologic/Lymphatic: Reports none Allergic/Immunologic Allergic/Immunologic: Reports none Vital Signs Vital Signs Vital Signs: Weight Body Mass Index (BMI) 33.2 Physical Exam Const alert, oriented x3 and no apparent distress General Appearance: cooperative and comfortable Orientation / Consciousness: awake Exam Limitations: no limitations HEENT normocephalic Head and Scalp: normal to inspection Eyes EOMs intact bilaterally Neck full ROM General: normal visual inspection Lymph Lymphatic: no lymphadenopathy noted Chest inspection of chest normal Resp normal respiratory effort and normal air movement Auscultation: clear to auscultation bilaterally; Negative for crackles, rales, rhonchi or wheezes Cardio regular rate, S1 normal heart sound, S2 normal heart sound, no murmurs, no rub, no gallops, no clicks and no JVD Jugular Venous Distention: Negative for JVD Rate: regular rate Rhythm: abnormal rhythm Heart Sounds: S1 normal and S2 normal; Negative for click, gallop, murmur or rub Peripheral Pulses: pulses 2+ throughout GI normal to inspection, nondistended, normoactive bowel sounds Extremity normal to inspection General Extremity: Negative for edema Peripheral Pulses: Yes pulses 2+ throughout Skin no rashes or lesions noted Neuro oriented x3 Psych mental status grossly normal Cardiology Labs/Tests Cardiology Labs/Tests: Rhythm: EKG: ECHO: 09/30/2018 Interpretation Summary The study was technically difficult. Contrast injection was performed. Left ventricular systolic function is normal. The estimated ejection fraction is 65 %. Mild concentric left ventricular hypertrophy. The left atrium is moderately enlarged. The right atrium is mildly enlarged. There is mild mitral annular calcification. Trivial mitral valve insufficiency. Trivial tricuspid valve insufficiency. Unable to estimate RV systolic pressure/pulmonary artery pressure due to technically difficult study. Unable to assess diastolic dysfunction. Stress Test: Cardiac Cath: 11/03/2017 CONCLUSIONS Elevated Left Ventricular End Diastolic Pressure Normal LV size, wall motion,and systolic function LVEF: by LV gram 55 % Solomon Multivessel CAD RECOMMENDATIONS Risk factor modification Medical therapy CORONARY ANGIOGRAPHY DOMINANCE: Left Dominant LEFT HEART ASSESSMENT Left Ventricular Ejection Fraction: by LV Gram 55 % Normal LV wall motion Elevated Left Ventricular End Diastolic Pressure LVEDP: 24 mmHg LEFT MAIN: Angiographically normal LEFT ANTERIOR DESCENDING ARTERY: OSTIAL LAD: 25 % Stenosis PROX LAD: Mild luminal irregularities DIAGONAL 1: Proximal - Mild luminal irregularities CIRCUMFLEX ARTERY: PROX CIRC: Mild calcification, Mild luminal irregularities OM 1: Ostial - 25 % Stenosis RIGHT CORONARY ARTERY: Angiographically normal VALVE FINDINGS: Normal Aortic Valve function Normal Mitral Valve function AORTIC ROOT: Angiographically normal PCI: CT Surgery: Holter monitor: EPS: PPM: CXR: Chest CT Scan: Documented by User: Dr. Jim Anderson MD 01/15/21 17:56 HPI - General General Date of Admission: 01/15/21 [facility] Medical History (Updated 01/15/21 @ 11:[address] Nimesh Rankin MD) Atherosclerosis of [place] coronary artery of [place] heart without angina pectoris Atrial fibrillation Bruising Bruit of left carotid artery Chest discomfort Chronic lymphocytic leukemia (CLL), B-cell CLL (chronic lymphocytic leukemia) COPD (chronic obstructive pulmonary disease) Depression Diverticulitis Edema of right lower extremity Essential (primary) hypertension YURI (obstructive sleep apnea) Pure hypercholesterolemia Renal mass Renal mass, left Right carotid bruit Skin cancer of face Home Medications albuterol sulfate 1 - 2 puff INHALATION Q4H PRN PRN 07/22/16 [History Last Taken 01/15/21] loratadine 10 mg PO DAILY 09/03/16 [History Last Taken 01/15/21] atorvastatin 40 mg tablet 40 mg PO QHS tab 08/21/17 [History Last Taken 01/14/21] HANDICAP Placard #1 ea 04/11/19 [Rx Last Taken Unknown] carvedilol 6.25 mg tablet 6.25 mg PO BID tab 01/24/20 [History Last Taken 01/15/21] losartan 50 mg tablet 25 mg PO DAILY 02/07/20 [History Last Taken 01/15/21] doxazosin 2 mg PO QHS 06/05/20 [History Last Taken 01/14/21] amlodipine 5 mg PO QHS 01/15/21 [History Last Taken 01/14/21] apixaban [Eliquis] 5 mg PO BID 01/15/21 [History Last Taken 01/15/21] furosemide 40 mg PO DAILY 01/15/21 [History Last Taken 01/15/21] Allergy/AdvReac Type Severity Reaction Status Date / Time No Known Allergies Allergy Verified 12/26/20 08:59 Family History Mother Throat cancer Father Heart disease Brother Hypertension Sister Thyroid disorder Son Diabetes Surgical History CYST REMOVAL FROM BACK History of arthroscopy of both knees History of cardioversion (~08/07/20) History of colectomy History of tonsillectomy kidney tumor removed Previous back surgery RIGHT FOREARM SCREWS AND PLATES Social History Smoking Status: Former smoker how long ago did patient quit smokin years ago alcohol intake: current alcohol intake frequency: 0-2 drinks per day substance use type: does not use caffeine: Yes Type: coffee Number of servings: 1 Cardiology Labs/Tests Cardiology Labs/Tests: Rhythm: atrial fibrillation ECG: Atrial fibrillation Echocardiogram: 09-30-2018 Interpretation Summary The study was technically difficult. Contrast injection was performed. Left ventricular systolic function is normal. The estimated ejection fraction is 65 %. Mild concentric left ventricular hypertrophy. The left atrium is moderately enlarged. The right atrium is mildly enlarged. There is mild mitral annular calcification. Trivial mitral valve insufficiency. Trivial tricuspid valve insufficiency. Unable to estimate RV systolic pressure/pulmonary artery pressure due to technically difficult study. Unable to assess diastolic dysfunction. Stress Test Report Date: 10/27/2017 Procedure: Pharmacologic stress nuclear imaging study Indications: Chest pain: Atrial fibrillation; peripheral vascular disease Consent: Per the patient Procedure: The patient underwent pharmacologic (Regadenoson) evaluation with a peak heart rate of 81 beats per minute (54 predicted maximal heart rate) and a peak blood pressure of 142/78 mmHg. The baseline ECG demonstrated atrial fibrillation. The peak pharmacologic ECG demonstrated no obvious ECG changes. There were no cardiac dysrhythmias pretest, during pharmacologic infusion, or recovery. There was no complaint of chest discomfort during pharmacologic infusion or r ecovery. The examination was discontinued secondary to completion of protocol. Impression: 1. Pharmacologic (Regadenoson) evaluation 2. Peak pharmacologic ECG with atrial fibrillation with no obvious ECG changes. 3. No additional cardiac dysrhythmias pretest, during pharmacologic infusion, or recovery 4. Nuclear images pending Myocardial perfusion imaging study: Technique: The patient was injected with 13.9 millicuries of technetium 99m Cardiolite and subsequently rest SPECT Cardiolite nuclear imaging was obtained in the horizontal long, vertical long, and short axis views. The patient underwent pharmacologic (Regadenoson) evaluation with a peak heart rate of 81 beats per minute (54 % percent predicted maximal heart rate) and a peak blood pressure of 142/78 mmHg. The patient was injected with 45 millicuries of technetium 99m Cardiolite and subsequently stress SPECT Cardiolite nuclear imaging was obtained in the horizontal long, vertical long, and short axis views. A gated Cardiolite study at peak stress was obtained. Interpretation: Rest and stress SPECT Cardiolite nuclear imaging status post realignment, normalization, and attenuation correction demonstrate demonstrate status post stress and area of subtle diminished myocardial perfusion/tracer uptake in the distal inferior/inferoapical segments which appears to be somewhat more prominent than rest.. There is end systolic thickening and brightening. The gated Cardiolite study demonstrates myocardial thickening and inward wall motion. The reported LVEF is 70 %. Impression: 1. Rest and stress SPECT currently nuclear imaging demonstrate status post stress and area of subtle myocardial perfusion/tracer uptake in the distal inferior/inferoapical segments which appears to be somewhat more prominent than rest potentially compatible with an area of stress-induced myocardial ischemia although shifting soft tissue attenuation/artifact cannot necessarily be excluded. 2. The gated Cardiolite study reports an LVEF of 70 %. Cardiac catheterization: 11-03-2017 CONCLUSIONS Elevated Left Ventricular End Diastolic Pressure Normal LV size, wall motion,and systolic function LVEF: by LV gram 55 % Solomon Multivessel CAD RECOMMENDATIONS Risk factor modification Medical therapy DESCRIPTION OF PROCEDURE The patient arrived to the procedure lab. The risks and benefits of the procedure as well as a full description of our services here and current unavailability of surgical backup were fully explained to the patient and/or their significant other prior to the catheterization. The Timeout was completed, verifying the correct patient and procedure. The patient's procedural site was prepped and draped in the usual fashion. Local anesthetic was given subcutaneously to right groin region with Lidocaine 2%. Using a modified Seldinger technique, arterial access was obtained via the right femoral artery, a 4Fr sheath was inserted Left Coronary Artery selective angiography was performed in multiple views using a 4 Fr. JL5 catheter. Right Coronary Artery selective angiography was then performed in multiple views using a 4 Fr. 3DRC catheter. Left Ventriculography was performed in HOLLAND projection using a 4 Fr. Pigtail catheter. LV to AO pullback pressures were then recorded.The arterial sheath was pulled and manual compression applied until hemostasis is achieved. CORONARY ANGIOGRAPHY DOMINANCE: Left Dominant LEFT HEART ASSESSMENT Left Ventricular Ejection Fraction: by LV Gram 55 % Normal LV wall motion Elevated Left Ventricular End Diastolic Pressure LVEDP: 24 mmHg LEFT MAIN: Angiographically normal LEFT ANTERIOR DECENDING ARTERY: OSTIAL LAD: 25 % Stenosis PROX LAD: Mild luminal irregularities DIAGONAL 1: Proximal - Mild luminal irregularities CIRCUMFLEX ARTERY: PROX CIRC: Mild calcification, Mild luminal irregularities OM 1: Ostial - 25 % Stenosis RIGHT CORONARY ARTERY: Angiographically normal VALVE FINDINGS: Normal Aortic Valve function Normal Mitral Valve function AORTIC ROOT: Angiographically normal Assessment & Plan Assessment/Plan (1) Encounter for monitoring anti-arrhythmic therapy: PLAN: The patient is being brought into the hospital for initiation of antiarrhythmic therapy. As noted below he has a history of atrial fibrillation. He has been on rate control therapy and anticoagulant therapy. He has undergone multiple synchronized biphasic DC cardioversions. Based upon his recurrence of atrial fibrillation he was given the option of consideration for antiarrhythmic therapy versus EP consultation for possible EPS/RFA. At the present time he elected to proceed with antiarrhythmic therapy. Thus he is going to be monitored in the hospital with cardiac telemetry monitoring and ECG follow-up and laboratory follow-up as deemed appropriate. He is going to initiate medical therapy. The options at this time, as noted below, include agents such as dofetilide/Tikosyn or sotalol/Betapace. At the moment he will initiate medical therapy with sotalol/Betapace. (2) Atrial fibrillation: QUALIFIERS: Atrial fibrillation type: persistent (not longstanding) Qualified Code(s): I48.19 - Other persistent atrial fibrillation PLAN: The patient is being brought into the hospital for initiation of antiarrhythmic therapy. The patient's previous laboratory studies were reviewed and demonstrated his renal function to be within acceptable limits for antiarrhythmic agents such as either dofetilide/Tikosyn or sotalol/Betapace. At the present time the patient will initiate antiarrhythmic therapy such as sotalol/Betapace. This will replace his beta-amber therapy with carvedilol/Coreg. He will continue his anticoagulant therapy. He will be monitored with the telemetry monitoring ECG for any obvious adverse events/pro arrhythmic events. Over time depending upon his clinical course, if he does not convert to sinus rhythm, he will be considered for future repeat synchronized biphasic DC cardioversion to regain sinus rhythm. If over time, despite adjustment of his medications, etc., he regained sinus rhythm and then returned to atrial fibrillation or does not regain sinus rhythm then he will need to be referred to electrophysiology for consideration for EPS/RFA. (3) Atherosclerosis of [place] coronary artery of [place] heart without angina pectoris: PLAN: The patient has a history of underlying CAD. He has undergone noninvasive and invasive evaluation in the past. He will continue risk factor modification medical therapy. (4) Pure hypercholesterolemia: PLAN: The patient will continue medical management as deemed appropriate (5) Essential (primary) hypertension: PLAN: The patient's blood pressure will be followed during his hospitalization he will continue medical management with adjustment as needed. (6) YURI (obstructive sleep apnea): PLAN: The patient has a history of underlying YURI. He will continue supportive therapy. (7) Chronic lymphocytic leukemia (CLL), B-cell: QUALIFIERS: Leukemia Active/Remission status: in remission Qualified Code(s): C91.11 - Chronic lymphocytic leukemia of B-cell type in remission PLAN: The patient has a history of CLL. He will continue evaluation care as deemed appropriate by his other physicians. Addt'l Comments The patient's case was discussed and reviewed with the patient and his spouse. They were agreeable to this approach. The patient was independently evaluated and examined (as noted above) with his case being discussed with David Holloway CNP. The patient does on examination have lungs that are clear to auscultation percussion bilaterally and a cardiovascular examination that demonstrates an irregular rhythm with a normal S1 and S2. His abdomen demonstrates positive bowel sounds and is soft and nontender. His lower extremities demonstrate no obvious peripheral pitting edema. Neurologically there is no obvious focal motor or sensory deficits. The [facility] hospitalist group will also be consulted to assist in the patient's noncardiovascular evaluation and care during his hospit alization. His case was discussed with Dr. Rankin who agreed to assist in his overall evaluation and care. This note was generated using a voice recognition system and there may be incorrect words, spelling or punctuation that were not noted when reviewing the office note prior to saving. Procedure Criteria Type of Procedure Procedure Type: Elective Elective Risks - COVID COVID Risk Discussion: The surgeon/proceduralist and patient have discussed in detail the risk of exposure to and/or potential harm posed by the COVID-19 virus with having a surgery/procedure at this time versus the risk of delaying the surgery/procedure. It is not possible to know either the risk of delaying the surgery or procedure or chance of getting an infection with perfect accuracy, but a joint decision was made between the patient and the surgeon/proceduralist to proceed at this time with the scheduled surgery/procedure as indicated on the consent form.
--- NOTE | 2021-01-15 08:55 | PCM.PN.HOSP ---
Subjective Subjective Patient is a 75-year-old gentleman with past medical history significant for paroxysmal atrial fibrillation with previous unsuccessful cardioversion who was admitted by cardiology for initiation of antiarrhythmic therapy Objective Data Objective Data Vital Signs: Vital Signs Temp Pulse Resp BP Pulse Ox 98.1 F 81 16 127/91 H 97 01/15/21 08:38 01/15/21 08:38 01/15/21 08:38 01/15/21 08:38 01/15/21 08:38 Oxygen Delivery Method Room Air Weight: 108.3 kg Body Mass Index (BMI) 33.3 Lab / Micro Data Result Diagrams: 01/15/21 09:44 01/15/21 09:44 Physical Exam Narrative GENERAL: cooperative HEENT: Atraumatic; EYES; Anicteric, Normal Conjunctiva NECK; supple, normal thyroid, RESPIRATORY: Diminished to auscultation CARDIOVASCULAR: Irregularly irregular but with controlled rate GI: soft, normoactive bowel sounds, : No Renal angle tenderness; EXTREMITIES: No edema, no clubbing, MUSCULOSKELETAL: no muscle waisting NEURO: Awake; no lateralizing signs. SKIN: No Rash PSYCH; Flat affect Assessment & Plan Assessment/Plan (1) Atrial fibrillation: QUALIFIERS: Atrial fibrillation type: persistent (not longstanding) Qualified Code(s): I48.19 - Other persistent atrial fibrillation PLAN: Patient is a 75-year-old gentleman with past medical history significant for paroxysmal atrial fibrillation with previous unsuccessful cardioversion who was admitted by cardiology for initiation of antiarrhythmic therapy 1. Paroxysmal A. fib ?Patient is apparently symptomatic. Admitted by cardiology for initiation of antiarrhythmic therapy with sotalol. Patient has been admitted to a monitored bed. Daily EKGs ordered for monitoring of QT interval. Patient is on systemic anticoagulation with Eliquis Case was discussed with Dr. Anderson patient's attending 2. Chronic lymphocytic leukemia ?Currently in remission 3. Hypertension - Blood pressure controlled, home medications continued with dose adjustment as needed 4. Dyslipidemia -Patient is on statin therapy, continued at home dose 5. Obesity - With a BMI of 33.3 patient was counseled on weight reduction 6. Obstructive sleep apnea ?PAP therapy when needed 7. Bilateral lower extremity lymphedema ?Ordered bilateral MANJU hoses 8. DVT prophylaxis ?Patient already on Eliquis Charges/Coding Visit Charges Inpatient E&M: [id number] Subs Hosp L3
--- NOTE | 2021-01-15 09:29 | EKG12_ITS ---
Test Reason : AM EKG Blood Pressure : / mmHG Vent. Rate : 052 BPM Atrial Rate : 068 BPM P-R Int : 000 ms QRS Dur : 088 ms QT Int : 458 ms P-R-T Axes : 000 -29 004 degrees QTc Int : 425 ms Atrial fibrillation Leftward axis Abnormal ECG Confirmed by DEJUAN HUYNH, RUTH ANN ([id number]), editorial clerk LESLIE ACUÑA ([id number]) on 01/17/2021 10:45:10 AM Referred By: David Holloway Confirmed By:RUTH ANN ZAIDI MD
[2021-01-15 09:54] LABS: Hemoglobin 13.2 g/dL (13.0-16.5); Mean Corp Hgb Conc 32.2 g/dL (32-36); Mean Corpuscular Hgb 28.8 pg (27.0-32.0); Mean Corpuscular Volume 89.3 fL (80-94); Mean Platelet Vol. 10.3 fl (6.2-12.0); Platelet Count 149 K/mm3 (150-450); RBC Distribution Width CV 13.2 % (11.6-14.6); RBC Distribution Width SD 43.3 fl (35.1-43.9); Red Blood Count 4.59 M/mm3 (4.6-6.2); White Blood Count 4.5 K/mm3 (4.4-11.0)
[2021-01-15 10:03] LABS: Anion Gap 4 (5-15); BUN 11 mg/dL (7-18); Calcium,Total 8.9 mg/dL (8.5-10.1); Chloride 106 mmol/L (98-107); Creatinine, Serum 0.73 mg/dL (0.70-1.30); EST Glomerular Filtration Rate 111 mL/min (>60); Est Glom Filt Rate - Afr Amer 134 mL/min (>60); Estimated Creatinine Clearance 69.03 ml/min; Glucose 117 mg/dL (74-106); Magnesium 1.9 mg/dL (1.6-2.6); Potassium 3.8 mmol/L (3.5-5.1); Sodium Level 140 mmol/L (136-145)
[2021-01-15] MEDS: Sotalol Hydrochloride 80 MG Tablet PO (11:51)
--- NOTE | 2021-01-15 13:59 | CASEMGMT ---
This RN CM to room to complete CM assessment and pt is sleeping without distress. Pt does not awaken to knock on door or verbal stimuli. CM to attempt later today or tomorrow. SStaten RN CM
--- NOTE | 2021-01-15 15:06 | EKG12_ITS ---
Test Reason : REPEAT Blood Pressure : / mmHG Vent. Rate : 046 BPM Atrial Rate : 059 BPM P-R Int : 000 ms QRS Dur : 096 ms QT Int : 450 ms P-R-T Axes : 000 -30 -14 degrees QTc Int : 393 ms Atrial fibrillation Left axis deviation Abnormal ECG Confirmed by DEJUAN HUYNH, RUTH ANN ([id number]), business editor LESLIE ACUÑA ([id number]) on 01/17/2021 10:45:43 AM Referred By: David Holloway Confirmed By:RUTH ANN ZAIDI MD
--- NOTE | 2021-01-15 17:11 | EKG12_ITS ---
Test Reason : REPEAT Blood Pressure : / mmHG Vent. Rate : 055 BPM Atrial Rate : 042 BPM P-R Int : 000 ms QRS Dur : 090 ms QT Int : 432 ms P-R-T Axes : 000 214 193 degrees QTc Int : 413 ms Atrial fibrillation Consider Limb Lead Misplacement Recommend Repeat ECG Abnormal ECG Confirmed by DEJUAN HUYNH, RUTH ANN ([id number]), film editor LESLIE ACUÑA ([id number]) on 01/17/2021 10:46:36 AM Referred By: David Holloway Confirmed By:RUTH ANN ZAIDI MD
[2021-01-15] MEDS: Mag Hydrox/Al Hydrox/Simeth 30 ML UDC 15 ML PO (21:37)
[2021-01-15] MEDS: Dofetilide 250 MCG Capsule PO (21:39)
[2021-01-15] MEDS: Atorvastatin Calcium 40 MG Tablet PO (21:39)
[2021-01-15] MEDS: Doxazosin 1 MG Tablet 2 MG PO (21:39)
[2021-01-15] MEDS: amLODIPine 5 MG Tablet PO (21:39)
[2021-01-15] MEDS: APIXABAN 5 MG TABLET PO (21:39)
[2021-01-16] VITALS (10 sets, daily range): BP systolic 102–137; BP diastolic 54–86; PULSE 54–74; RESP 16–20; TEMP 36.2–36.9; O2SAT 94–96
--- NOTE | 2021-01-16 05:55 | EKG12_ITS ---
Test Reason : POST OP Blood Pressure : / mmHG Vent. Rate : 049 BPM Atrial Rate : 038 BPM P-R Int : 000 ms QRS Dur : 098 ms QT Int : 448 ms P-R-T Axes : 000 219 242 degrees QTc Int : 404 ms Atrial fibrillation Consider Limb Lead Misplacement Recommend Repeat ECG Abnormal ECG Confirmed by DEJUAN HUYNH, RUTH ANN ([id number]), order editor LESLIE ACUÑA ([id number]) on 01/17/2021 10:47:12 AM Referred By: David Holloway Confirmed By:RUTH ANN ZAIDI MD
[2021-01-16 05:58] LABS: Hematocrit 42.2 % (40-54); Hemoglobin 13.7 g/dL (13.0-16.5); Mean Corp Hgb Conc 32.5 g/dL (32-36); Mean Corpuscular Hgb 29.1 pg (27.0-32.0); Mean Corpuscular Volume 89.6 fL (80-94); Mean Platelet Vol. 10.3 fl (6.2-12.0); Platelet Count 156 K/mm3 (150-450); RBC Distribution Width CV 13.1 % (11.6-14.6); RBC Distribution Width SD 43.3 fl (35.1-43.9); Red Blood Count 4.71 M/mm3 (4.6-6.2); White Blood Count 5.2 K/mm3 (4.4-11.0)
[2021-01-16 06:41] LABS: Anion Gap 6 (5-15); BUN 16 mg/dL (7-18); BUN/Creat Ratio 20.9 RATIO (10-20); Calcium,Total 8.5 mg/dL (8.5-10.1); Chloride 106 mmol/L (98-107); Creatinine, Serum 0.76 mg/dL (0.70-1.30); EST Glomerular Filtration Rate 106 mL/min (>60); Est Glom Filt Rate - Afr Amer 128 mL/min (>60); Estimated Creatinine Clearance 69.03 ml/min; Glucose 117 mg/dL (74-106); Magnesium 1.9 mg/dL (1.6-2.6); Potassium 3.7 mmol/L (3.5-5.1); Sodium Level 140 mmol/L (136-145)
--- NOTE | 2021-01-16 07:27 | PN.HOSP_ITS ---
Subjective Subjective Patient seen had a relatively uneventful night. Started on sotalol EKG read reviewed this a.m. QT is WNL Objective Data Objective Data Vital Signs: Vital Signs Temp Pulse Resp BP Pulse Ox 97.2 F L 58 L 20 H 102/54 L 96 01/16/21 04:18 01/16/21 04:18 01/16/21 04:18 01/16/21 04:18 01/16/21 04:18 Oxygen Delivery Method Bi-pap Weight: 108.3 kg Body Mass Index (BMI) 33.3 Intake & Output: Intake and Output for Last 24 Hours 01/14/21 01/15/21 01/16/21 23:59 23:59 23:59 Intake Total 1000 / 1000 Balance 1000 / 1000 Lab / Micro Data Result Diagrams: 01/16/21 05:14 01/16/21 05:14 Labs: Laboratory Results - last 24 hr 01/15/21 09:44: WBC 4.5, RBC 4.59 L, Hgb 13.2, Hct 41.0, MCV 89.3, MCH 28.8, MCH C 32.2, RDW Std Deviation 43.3, RDW Coeff of [place] 13.2, Plt Count 149 L, MPV 10.3 01/15/21 09:44: Sodium 140, Potassium 3.8, Chloride 106, Carbon Dioxide 30.0, Anion Gap 4 L, BUN 11, Creatinine 0.73, Estim Creat Clear Calc 69.03, Est GFR (MDRD) Af Amer 134, Est GFR (MDRD) Non-Af 111, BUN/Creatinine Ratio 15.0, Glucose 117 H, Calcium 8.9, Magnesium 1.9 01/16/21 05:14: Sodium 140, Potassium 3.7, Chloride 106, Carbon Dioxide 28.0, Anion Gap 6, BUN 16, Creatinine 0.76, Estim Creat Clear Calc 69.03, Est GFR (MDRD) Af Amer 128, Est GFR (MDRD) Non-Af 106, BUN/Creatinine Ratio 20.9 H, Glucose 117 H, Calcium 8.5, Magnesium 1.9 01/16/21 05:14: WBC 5.2, RBC 4.71, Hgb 13.7, Hct 42.2, MCV 89.6, MCH 29.1, MCHC 32.5, RDW Std Deviation 43.3, RDW Coeff of [place] 13.1, Plt Count 156, MPV 10.3 Physical Exam Narrative GENERAL: cooperative HEENT: Atraumatic; EYES; Anicteric, Normal Conjunctiva NECK; supple, normal thyroid, RESPIRATORY: Diminished to auscultation CARDIOVASCULAR: Irregularly irregular but with controlled rate GI: soft, normoactive bowel sounds, : No Renal angle tenderness; EXTREMITIES: No edema, no clubbing, MUSCULOSKELETAL: no muscle waisting NEURO: Awake; no lateralizing signs. SKIN: No Rash PSYCH; Flat affect Assessment & Plan Assessment/Plan (1) Atrial fibrillation: QUALIFIERS: Atrial fibrillation type: persistent (not longstanding) Qualified Code(s): I48.19 - Other persistent atrial fibrillation PLAN: Patient is a 75-year-old gentleman with past medical history significant for paroxysmal atrial fibrillation with previous unsuccessful cardioversion who was admitted by cardiology for initiation of antiarrhythmic therapy 1. Paroxysmal A. fib ?Patient is apparently symptomatic. Admitted by cardiology for initiation of a ntiarrhythmic therapy with sotalol. Patient has been admitted to a monitored bed. Daily EKGs ordered for monitoring of QT interval. Patient is on systemic anticoagulation with Eliquis Case was discussed with Dr. Anderson patient's attending -1Patient seen had a relatively uneventful night. Started on sotalol EKG read reviewed this a.m. QT is WNL 2. Chronic lymphocytic leukemia ?Currently in remission 3. Hypertension - Blood pressure controlled, home medications continued with dose adjustment as needed 4. Dyslipidemia -Patient is on statin therapy, continued at home dose 5. Obesity - With a BMI of 33.3 patient was counseled on weight reduction 6. Obstructive sleep apnea ?PAP therapy when needed 7. Bilateral lower extremity lymphedema ?Ordered bilateral MANJU hoses 8. DVT prophylaxis ?Patient already on Eliquis Charges/Coding Visit Charges Inpatient E&M: 63354 Subs Hosp L2
[2021-01-16] MEDS: APIXABAN 5 MG TABLET PO ×2 (09:39→21:37)
[2021-01-16] MEDS: Losartan Potassium 25 MG Tablet PO (09:39)
[2021-01-16] MEDS: Loratadine 10 MG Tablet PO (09:39)
[2021-01-16] MEDS: Furosemide 40 MG Tablet PO (09:39)
[2021-01-16] MEDS: Dofetilide 250 MCG Capsule PO ×2 (09:39→21:37)
--- NOTE | 2021-01-16 09:50 | CASEMGMT ---
RN TRINO JUNIOR ASSISTANT MANAGER CM to room to meet with patient for initial transition planning/care coordination assessment. RN TRINO introduced self and role at [facility].? Pt voices understanding and consents to assessment at this time.? Pt resting in bed in no distress at this time.? Pt is A/O at this time and answers all questions appropriately.?? Care providers, pharmacy, and demographics verified/updated at this time. PCP: Dr Med Villanueva Specialists: Dr Anderson-cardiology, Dr Shin-oncology, Dr Lara-dermatology Preferred Pharmacy: [facility] Retail Insurance: [employer] Prescription Benefit:? Yes Living Will/HPOA:? Has both LW and HPOA, who is his , Giuliana LNOK: , Giuliana. Son, Herman Living Arrangements: Lives w/his in 2-story farmhouse w/basement. Bedroom on bath on 2nd floor. Also has bath on main floor. States does well w/the stairs. Independent w/ADL's. /pt share home mgmt tasks. 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 Transportation: Pt states drives self and states no transportation concerns at this time.? also drives. DME: ?States has the following DME:? BIPAP, nebulizer ?Pt states no need for further DME at this time.? HHC/SNF: No hx SNF. Had HHC in 2007 after surgery. Denies need for HHC at this time. Pt wishes to return home and states has no concerns with going home at time of discharge.? CM to follow for home oxygen needs and for any discharge planning/needs.? Pt voices no concerns/needs at this time.? Advised pt to ask for CM if any questions/concerns/needs arise.? Voices understanding. PLAN: ?Home w/family support and discharge plans in place. Michael FREY RN, CM
--- NOTE | 2021-01-16 11:40 | EKG12_ITS ---
Test Reason : TIMED EKG Blood Pressure : / mmHG Vent. Rate : 052 BPM Atrial Rate : 057 BPM P-R Int : 000 ms QRS Dur : 098 ms QT Int : 448 ms P-R-T Axes : 000 -20 020 degrees QTc Int : 416 ms Atrial fibrillation Abnormal ECG Confirmed by DEJUAN HUYNH, RUTH ANN ([id number]), development editor LESLIE ACUÑA ([id number]) on 01/17/2021 10:58:06 AM Referred By: David Holloway Confirmed By:RUTH ANN ZAIDI MD
--- NOTE | 2021-01-16 11:54 | EKG12_ITS ---
Test Reason : POST TIKOSEN Blood Pressure : / mmHG Vent. Rate : 058 BPM Atrial Rate : 326 BPM P-R Int : 000 ms QRS Dur : 088 ms QT Int : 440 ms P-R-T Axes : 000 -25 004 degrees QTc Int : 431 ms Atrial fibrillation Abnormal ECG When compared with ECG of 16-JAN-2021 11:52, MANUAL COMPARISON REQUIRED, DATA IS UNCONFIRMED Confirmed by PIETER HUYNH, FERCHO ([id number]), newspaper managing editor LESLIE ACUÑA ([id number]) on 01/18/2021 10:19:50 A M Referred By: David Holloway Confirmed By:CHELO STAPLETON MD
--- NOTE | 2021-01-16 18:27 | PN.CARD_ITS ---
Subjective Subjective The patient has been resting comfortably. He has had no new acute cardiovascular complaints. Objective Data Vital Signs: Vital Signs Temp Pulse Resp BP Pulse Ox 98.4 F 60 16 131/81 H 96 01/16/21 15:35 01/16/21 15:35 01/16/21 15:35 01/16/21 15:35 01/16/21 15:35 Oxygen Delivery Method Room Air Weight: 238 lb 12.17 oz Body Mass Index (BMI) 33.3 Intake & Output: Intake and Output for Last 24 Hours 01/14/21 01/15/21 01/16/21 23:59 23:59 23:59 Intake Total 1000 / 1000 1440 / 1440 Balance 1000 / 1000 1440 / 1440 Lab / Micro Data Result Diagrams: 01/16/21 05:14 01/16/21 05:14 Labs: Laboratory Results - last 24 hr 01/16/21 05:14: Sodium 140, Potassium 3.7, Chloride 106, Carbon Dioxide 28.0, Anion Gap 6, BUN 16, Creatinine 0.76, Estim Creat Clear Calc 69.03, Est GFR (MDRD) Af Amer 128, Est GFR (MDRD) Non-Af 106, BUN/Creatinine Ratio 20.9 H, Glucose 117 H, Calcium 8.5, Magnesium 1.9 01/16/21 05:14: WBC 5.2, RBC 4.71, Hgb 13.7, Hct 42.2, MCV 89.6, MCH 29.1, MCHC 32.5, RDW Std Deviation 43.3, RDW Coeff of [place]on 13.1, Plt Count 156, MPV 10.3 Cardiology Labs/Tests 01/16/21 05:14: Sodium 140, Potassium 3.7, Chloride 106, Carbon Dioxide 28.0, Anion Gap 6, BUN 16, Creatinine 0.76, Est GFR (MDRD) Af Amer 128, Est GFR (MDRD) Non-Af 106, BUN/Creatinine Ratio 20.9 H, Glucose 117 H, Calcium 8.5, Magnesium 1.9 01/16/21 05:14: WBC 5.2, RBC 4.71, Hgb 13.7, Hct 42.2, MCV 89.6, MCH 29.1, MCHC 32.5, Plt Count 156, MPV 10.3 Rhythm: Atrial fibrillation; 1 episode reported concerning for a nonsustained wide-complex tachycardia (yesterday evening) which was reviewed at that time and was concerning for underlying atrial fibrillation with significant somatic/motion artifact with no definitive findings of a wide-complex rhythm; no finding since that time of any obvious wide-complex dysrhythmias EKG: Atrial fibrillation; leftward axis; no acute ECG changes Physical Exam Const alert, oriented x3 and no apparent distress General Appearance: cooperative and comfortable Orientation / Consciousness: awake Exam Limitations: no limitations HEENT normocephalic Eyes EOMs intact bilaterally Neck full ROM General: normal visual inspection Lymph Lymphatic: no lymphadenopathy noted Chest inspection of chest normal Resp normal respiratory effort and normal air movement Auscultation: clear to auscultation bilaterally; Negative for crackles, rales, rhonchi or wheezes Cardio regular rate, S1 normal heart sound, S2 normal heart sound, no murmurs, no rub, no gallops, no clicks and no JVD Jugular Venous Distention: Negative for JVD Rate: regular rate Rhythm: abnormal rhythm Heart Sounds: S1 normal and S2 normal; Negative for click, gallop, murmur or rub Peripheral Pulses: pulses 2+ throughout GI normal to inspection, nondistended, normoactive bowel sounds Extremity normal to inspection General Extremity: Negative for edema Skin no rashes or lesions noted Neuro oriented x3 Psych mental status grossly normal Assessment & Plan Assessment/Plan (1) Encounter for monitoring anti-arrhythmic therapy: PLAN: The patient is being brought into the hospital for initiation of antiarrhythmic therapy. As noted below he has a history of atrial fibrillation. He has been on rate control therapy and anticoagulant therapy. He has undergone multiple synchronized biphasic DC cardioversions. Based upon his recurrence of atrial fibrillation he was given the option of consideration for antiarrhythmic therapy versus EP consultation for possible EPS/RFA. At the present time he elected to proceed with antiarrhythmic therapy. Status post review of his overall case and his underlying cardiac rhythm with respect to rate, etc., he was altered from an attempt at sotalol/Betapace therapy to dofetilide/Tikosyn therapy. He appears to be tolerating this thus far. Thus he is going to be monitored in the hospital with cardiac telemetry monitoring and ECG follow-up and laboratory follow-up as deemed appropriate. (2) Atrial fibrillation: QUALIFIERS: Atrial fibrillation type: persistent (not longstanding) Qualified Code(s): I48.19 - Other persistent atrial fibrillation PLAN: The patient is being brought into the hospital for initiation of antiarrhythmic therapy. The patient's previous laboratory studies were reviewed and demonstrated his renal function to be within acceptable limits for antiarrhythmic agents such as either dofetilide/Tikosyn or sotalol/Betapace. At the present time the patient will continue with his dofetilide/Tikosyn therapy. His beta-amber has been on hold based upon concerns of bradycardia. He will continue his anticoagulant therapy. He will be monitored with the telemetry monitoring ECG for any obvious adverse events/pro arrhythmic events. Over time depending upon his clinical course, if he does not convert to sinus rhythm, he will be considered for future repeat synchronized biphasic DC cardioversion to regain sinus rhythm. If over time, despite adjustment of his medications, etc., he regained sinus rhythm and then returned to atrial fibrillation or does not regain sinus rhythm then he will need to be referred to electrophysiology for consideration for EPS/RFA. (3) Atherosclerosis of [place] coronary artery of [place] heart without angina pectoris: PLAN: The patient has a history of underlying CAD. He has undergone noninvasive and invasive evaluation in the past. He will continue risk factor modification medical therapy. (4) Pure hypercholesterolemia: PLAN: The patient will continue medical management as deemed appropriate (5) Essential (primary) hypertension: PLAN: The patient's blood pressure will be followed during his hospitalization he will continue medical management with adjustment as needed. (6) YURI (obstructive sleep apnea): PLAN: The patient has a history of underlying YURI. He will continue supportive therapy. (7) Chronic lymphocytic leukemia (CLL), B-cell: QUALIFIERS: Leukemia Active/Remission status: in remission Qualified Code(s): C91.11 - Chronic lymphocytic leukemia of B-cell type in remission PLAN: The patient has a history of CLL. He will continue evaluation care as deemed appropriate by his other physicians. Addt'l Comments The patient's case was discussed and reviewed with the patient. He was agreeable to this approach. The patient denies symptoms considered classic for angina pectoris, CHF / pulmonary edema (with respect to orthopnea / PND), ongoing palpitations, or near syncope / syncope.
[2021-01-16] MEDS: amLODIPine 5 MG Tablet PO (21:37)
[2021-01-16] MEDS: Atorvastatin Calcium 40 MG Tablet PO (21:37)
[2021-01-16] MEDS: Doxazosin 1 MG Tablet 2 MG PO (21:37)
--- NOTE | 2021-01-16 23:40 | EKG12_ITS ---
Test Reason : Blood Pressure : / mmHG Vent. Rate : 069 BPM Atrial Rate : 088 BPM P-R Int : 000 ms QRS Dur : 096 ms QT Int : 448 ms P-R-T Axes : 000 -34 001 degrees QTc Int : 480 ms Atrial fibrillation Left axis deviation Prolonged QT Abnormal ECG When compared with ECG of 16-JAN-2021 23:48, MANUAL COMPARISON REQUIRED, DATA IS UNCONFIRMED Confirmed by PIETER HUYNH, FERCHO ([id number]), editor house organ LESLIE ACUÑA ([id number]) on 01/18/2021 10:19:06 A M Referred By: David Holloway Confirmed By:CHELO STAPLETON MD
[2021-01-17] VITALS (10 sets, daily range): BP systolic 119–137; BP diastolic 74–88; PULSE 49–82; RESP 16–18; TEMP 36.2–36.9; O2SAT 93–97
[2021-01-17 06:09] LABS: Anion Gap 7 (5-15); BUN 19 mg/dL (7-18); BUN/Creat Ratio 24.8 RATIO (10-20); Calcium,Total 8.7 mg/dL (8.5-10.1); Chloride 105 mmol/L (98-107); Creatinine, Serum 0.76 mg/dL (0.70-1.30); EST Glomerular Filtration Rate 106 mL/min (>60); Est Glom Filt Rate - Afr Amer 128 mL/min (>60); Estimated Creatinine Clearance 69.03 ml/min; Glucose 117 mg/dL (74-106); Potassium 3.5 mmol/L (3.5-5.1); Sodium Level 138 mmol/L (136-145)
--- NOTE | 2021-01-17 07:43 | PN.HOSP_ITS ---
Subjective Subjective Patient remains on Tikosyn had a relatively uneventful night Objective Data Objective Data Vital Signs: Vital Signs Temp Pulse Resp BP Pulse Ox 97.2 F L 49 L 18 119/75 95 01/17/21 03:35 01/17/21 07:00 01/17/21 03:35 01/17/21 03:35 01/17/21 03:35 Oxygen Delivery Method Room Air Weight: 108.3 kg Body Mass Index (BMI) 33.3 Intake & Output: Intake and Output for Last 24 Hours 01/15/21 01/16/21 01/17/21 23:59 23:59 23:59 Intake Total 1000 / 1000 1440 / 1680 360 / 360 Balance 1000 / 1000 1440 / 1680 360 / 360 Lab / Micro Data Result Diagrams: 01/16/21 05:14 01/17/21 04:56 Labs: Laboratory Results - last 24 hr 01/17/21 04:56: Sodium 138, Potassium 3.5, Chloride 105, Carbon Dioxide 26.0, Anion Gap 7, BUN 19 H, Creatinine 0.76, Estim Creat Clear Calc 69.03, Est GFR (MDRD) Af Amer 128, Est GFR (MDRD) Non-Af 106, BUN/Creatinine Ratio 24.8 H, Glucose 117 H, Calcium 8.7 Physical Exam Narrative GENERAL: cooperative HEENT: Atraumatic; EYES; Anicteric, Normal Conjunctiva NECK; supple, normal thyroid, RESPIRATORY: Diminished to auscultation CARDIOVASCULAR: Irregularly irregular but with controlled rate GI: soft, normoactive bowel sounds, : No Renal angle tenderness; EXTREMITIES: No edema, no clubbing, MUSCULOSKELETAL: no muscle waisting NEURO: Awake; no lateralizing signs. SKIN: No Rash PSYCH; Flat affect Assessment & Plan Assessment/Plan (1) Atrial fibrillation: QUALIFIERS: Atrial fibrillation type: persistent (not longstanding ) Qualified Code(s): I48.19 - Other persistent atrial fibrillation PLAN: Patient is a 75-year-old gentleman with past medical history significant for paroxysmal atrial fibrillation with previous unsuccessful cardioversion who was admitted by cardiology for initiation of antiarrhythmic therapy 1. Paroxysmal A. fib ?Patient is apparently symptomatic. Admitted by cardiology for initiation of antiarrhythmic therapy with sotalol. Patient has been admitted to a monitored bed. Daily EKGs ordered for monitoring of QT interval. Patient is on systemic anticoagulation with Eliquis Case was discussed with Dr. Anderson patient's attending -01/16/2021atient seen had a relatively uneventful night. Started on Tikosyn EKG read reviewed this a.m. QT is WNL -01/17/2021; patient remains on Tikosyn with daily monitoring of QT interval ordered with daily EKGs 2. Chronic lymphocytic leukemia ?Currently in remission 3. Hypertension - Blood pressure controlled, home medications continued with dose adjustment as needed 4. Dyslipidemia -Patient is on statin therapy, continued at home dose 5. Obesity - With a BMI of 33.3 patient was counseled on weight reduction 6. Obstructive sleep apnea ?PAP therapy when needed 7. Bilateral lower extremity lymphedema ?Ordered bilateral MANJU hoses 8. DVT prophylaxis ?Patient already on Eliquis Charges/Coding Visit Charges Inpatient E&M: 35798 Subs Hosp L2
--- NOTE | 2021-01-17 07:58 | PCM.PN.CARD ---
Subjective Subjective The patient is awake and alert. He has been up and ambulating. He has had no new acute cardiovascular complaints. Objective Data Vital Signs: Vital Signs Temp Pulse Resp BP Pulse Ox 97.2 F L 49 L 18 119/75 95 01/17/21 03:35 01/17/21 07:00 01/17/21 03:35 01/17/21 03:35 01/17/21 03:35 Oxygen Delivery Method Room Air Weight: 238 lb 12.17 oz Body Mass Index (BMI) 33.3 Intake & Output: Intake and Output for Last 24 Hours 01/15/21 01/16/21 01/17/21 23:59 23:59 23:59 Intake Total 1000 / 1000 1440 / 1680 360 / 360 Balance 1000 / 1000 1440 / 1680 360 / 360 Lab / Micro Data Result Diagrams: 01/16/21 05:14 01/17/21 04:56 Labs: Laboratory Results - last 24 hr 01/17/21 04:56: Sodium 138, Potassium 3.5, Chloride 105, Carbon Dioxide 26.0, Anion Gap 7, BUN 19 H, Creatinine 0.76, Estim Creat Clear Calc 69.03, Est GFR (MDRD) Af Amer 128, Est GFR (MDRD) Non-Af 106, BUN/Creatinine Ratio 24.8 H, Glucose 117 H, Calcium 8.7 Cardiology Labs/Tests 01/17/21 04:56: Sodium 138, Potassium 3.5, Chloride 105, Carbon Dioxide 26.0, Anion Gap 7, BUN 19 H, Creatinine 0.76, Est GFR (MDRD) Af Amer 128, Est GFR (MDRD) Non-Af 106, BUN/Creatinine Ratio 24.8 H, Glucose 117 H, Calcium 8.7 Rhythm: Atrial fibrillation EKG: Atrial fibrillation; no new acute ECG changes Physical Exam Const alert, oriented x3 and no apparent distress General Appearance: cooperative and comfortable Orientation / Consciousness: awake Exam Limitations: no limitations HEENT normocephalic Eyes EOMs intact bilaterally Neck full ROM General: normal visual inspection Lymph Lymphatic: no lymphadenopathy noted Chest inspection of chest normal Resp normal respiratory effort and normal air movement Auscultation: clear to auscultation bilaterally; Negative for crackles, rales, rhonchi or wheezes Cardio regular rate, S1 normal heart sound, S2 normal heart sound, no murmurs, no rub, no gallops, no clicks and no JVD Jugular Venous Distention: Negative for JVD Rate: regular rate Rhythm: abnormal rhythm Heart Sounds: S1 normal and S2 normal; Negative for click, gallop, murmur or rub Peripheral Pulses: pulses 2+ throughout GI normal to inspection, nondistended, normoactive bowel sounds Extremity normal to inspection General Extremity: Negative for edema Skin no rashes or lesions noted Neuro oriented x3 Psych mental status grossly normal Assessment & Plan Assessment/Plan (1) Encounter for monitoring anti-arrhythmic therapy: PLAN: The patient is being brought into the hospital for initiation of antiarrhythmic therapy. As noted below he has a history of atrial fibrillation. He has been on rate control therapy and anticoagulant therapy. He has undergone multiple synchronized biphasic DC cardioversions. Based upon his recurrence of atrial fibrillation he was given the option of consideration for antiarrhythmic therapy versus EP consultation for possible EPS/RFA. At the present time he elected to proceed with antiarrhythmic therapy. Status post review of his overall case and his underlying cardiac rhythm with respect to rate, etc., he was altered from an attempt at sotalol/Betapace therapy to dofetilide/Tikosyn therapy. He appears to be tolerating this thus far. Thus he is going to be monitored in the hospital with cardiac telemetry monitoring and ECG follow-up and laboratory follow-up as deemed appropriate. (2) Atrial fibrillation: QUALIFIERS: Atrial fibrillation type: persistent (not longstanding) Qualified Code(s): I48.19 - Other persistent atrial fibrillation PLAN: The patient is being brought into the hospital for initiation of antiarrhythmic therapy. The patient's previous laboratory studies were reviewed and demonstrated his renal function to be within acceptable limits for antiarrhythmic agents such as either dofetilide/Tikosyn or sotalol/Betapace. At the present time the patient will continue with his dofetilide/Tikosyn therapy. His beta-amber has been on hold based upon concerns of bradycardia. He will continue his anticoagulant therapy. He will be monitored with the telemetry monitoring ECG for any obvious adverse events/pro arrhythmic events. Over time depending upon his clinical course, if he does not convert to sinus rhythm, he will be considered for future repeat synchronized biphasic DC cardioversion to regain sinus rhythm. If over time, despite adjustment of his medications, etc., he regained sinus rhythm and then returned to atrial fibrillation or does not regain sinus rhythm then he will need to be referred to electrophysiology for consideration for EPS/RFA. (3) Atherosclerosis of [place] coronary artery of [place] heart without angina pectoris: PLAN: The patient has a history of underlying CAD. He has undergone noninvasive and invasive evaluation in the past. He will continue risk factor modification medical therapy. (4) Pure hypercholesterolemia: PLAN: The patient will continue medical management as deemed appropriate (5) Essential (primary) hypertension: PLAN: The patient's blood pressure will be followed during his hospitalization he will continue medical management with adjustment as needed. (6) YURI (obstructive sleep apnea): PLAN: The patient has a history of underlying YURI. He will continue supportive therapy. (7) Chronic lymphocytic leukemia (CLL), B-cell: QUALIFIERS: Leukemia Active/Remission status: in remission Qualified Code(s): C91.11 - Chronic lymphocytic leukemia of B-cell type in remission PLAN: The patient has a history of CLL. He will continue evaluation care as deemed appropriate by his other physicians. Addt'l Comments At the present time the patient appears to be without acute cardiovascular complaints. He continues to be monitored without any obvious adverse arrhythmic events or ECG findings. He will continue his current medical therapy and antiarrhythmic medication initiation. If he remains symptomatically and hemodynamically stable and with no adverse rhythm related events then he may be a candidate for discharge home tomorrow for continued outpatient follow-up and plans for future outpatient repeat synchronized biphasic DC cardioversion and attempt to regain sinus rhythm. The patient's case was discussed and reviewed with the patient. He was agreeable to this approach. This note was generated using a voice recognition system and there may be incorrect words, spelling or punctuation that were not noted when reviewing the office note prior to saving.
--- NOTE | 2021-01-17 08:41 | EKG12_ITS ---
Test Reason : TIKOSYN Blood Pressure : / mmHG Vent. Rate : 070 BPM Atrial Rate : 079 BPM P-R Int : 000 ms QRS Dur : 090 ms QT Int : 428 ms P-R-T Axes : 000 -35 011 degrees QTc Int : 462 ms Atrial fibrillation Left axis deviation Abnormal ECG Confirmed by DEJUAN HUYHN, RUTH ANN ([id number]), editor continuity and script LESLIE ACUÑA ([id number]) on 01/22/2021 9:02:58 AM Referred By: David Holloway Confirmed By:RUTH ANN ZAIDI MD
[2021-01-17] MEDS: Potassium Chloride Oral Tablet 20 MEQ 40 MEQ PO (09:29)
[2021-01-17] MEDS: Loratadine 10 MG Tablet PO (09:29)
[2021-01-17] MEDS: APIXABAN 5 MG TABLET PO ×2 (09:30→21:17)
[2021-01-17] MEDS: Losartan Potassium 25 MG Tablet PO (09:30)
[2021-01-17] MEDS: Dofetilide 250 MCG Capsule PO ×2 (09:30→21:18)
[2021-01-17] MEDS: Furosemide 40 MG Tablet PO (09:30)
--- NOTE | 2021-01-17 11:30 | EKG12_ITS ---
Test Reason : 2 HR AFTER NEW MED Blood Pressure : / mmHG Vent. Rate : 071 BPM Atrial Rate : 357 BPM P-R Int : 000 ms QRS Dur : 094 ms QT Int : 422 ms P-R-T Axes : 000 -36 013 degrees QTc Int : 458 ms Atrial fibrillation Left axis deviation Abnormal ECG Confirmed by DEJUAN HUYNH, RUTH ANN ([id number]), editor book LESLIE ACUÑA ([id number]) on 01/23/2021 11:00:16 AM Referred By: David Holloway Confirmed By:RUTH ANN ZAIDI MD
[2021-01-17] MEDS: Atorvastatin Calcium 40 MG Tablet PO (21:17)
[2021-01-17] MEDS: amLODIPine 5 MG Tablet PO (21:17)
[2021-01-17] MEDS: Doxazosin 1 MG Tablet 2 MG PO (21:18)
--- NOTE | 2021-01-17 23:20 | EKG12_ITS ---
Test Reason : Blood Pressure : / mmHG Vent. Rate : 062 BPM Atrial Rate : 258 BPM P-R Int : 236 ms QRS Dur : 096 ms QT Int : 420 ms P-R-T Axes : 081 -24 014 degrees QTc Int : 426 ms Atrial Fibrillation/Flutter Confirmed by DEJUAN HUYNH, RUTH ANN ([id number]), technical writer and editor LESLIE ACUÑA ([id number]) on 01/22/2021 9:05:31 AM Referred By: David Holloway Confirmed By:RUTH ANN ZAIDI MD
[2021-01-18] VITALS (8 sets, daily range): BP systolic 118–134; BP diastolic 75–94; PULSE 55–70; RESP 15–16; TEMP 36.2–36.8; O2SAT 95–97
[2021-01-18 06:27] LABS: Anion Gap 8 (5-15); BUN 20 mg/dL (7-18); BUN/Creat Ratio 24.5 RATIO (10-20); Calcium,Total 8.7 mg/dL (8.5-10.1); Chloride 105 mmol/L (98-107); Creatinine, Serum 0.82 mg/dL (0.70-1.30); EST Glomerular Filtration Rate 98 mL/min (>60); Est Glom Filt Rate - Afr Amer 118 mL/min (>60); Estimated Creatinine Clearance 84.18 ml/min; Glucose 114 mg/dL (74-106); Potassium 3.8 mmol/L (3.5-5.1); Sodium Level 139 mmol/L (136-145)
--- NOTE | 2021-01-18 07:38 | PCM.PN.HOSP ---
Subjective Subjective Patient seen and reevaluated [address] Anderson patient be discharged home today Objective Data Objective Data Vital Signs: Vital Signs Temp Pulse Resp BP Pulse Ox 97.2 F L 57 L 16 118/75 95 01/18/21 03:28 01/18/21 03:28 01/18/21 03:28 01/18/21 03:28 01/18/21 03:28 Oxygen Delivery Method CPAP Weight: 108.3 kg Body Mass Index (BMI) 33.3 Intake & Output: Intake and Output for Last 24 Hours 01/16/21 01/17/21 01/18/21 23:59 23:59 23:59 Intake Total 1440 / 1680 1080 / 1200 240 / 240 Balance 1440 / 1680 1080 / 1200 240 / 240 Lab / Micro Data Result Diagrams: 01/16/21 05:14 01/18/21 04:35 Labs: Laboratory Results - last 24 hr 01/18/21 04:35: Sodium 139, Potassium 3.8, Chloride 105, Carbon Dioxide 26.0, Anion Gap 8, BUN 20 H, Creatinine 0.82, Estim Creat Clear Calc 84.18, Est GFR (MDRD) Af Amer 118, Est GFR (MDRD) Non-Af 98, BUN/Creatinine Ratio 24.5 H, Glucose 114 H, Calcium 8.7 Physical Exam Narrative GENERAL: cooperative HEENT: Atraumatic; EYES; Anicteric, Normal Conjunctiva NECK; supple, normal thyroid, RESPIRATORY: Diminished to auscultation CARDIOVASCULAR: Irregularly irregular but with controlled rate GI: soft, normoactive bowel sounds, : No Renal angle tenderness; EXTREMITIES: No edema, no clubbing, MUSCULOSKELETAL: no muscle waisting NEURO: Awake; no lateralizing signs. SKIN: No Rash PSYCH; Flat affect Assessment & Plan Assessment/Plan (1) Atrial fibrillation: QUALIFIERS: Atrial fibrillation type: persistent (not longstanding) Qualified Code(s): I48.19 - Other persistent atrial fibrillation PLAN: Patient is a 75-year-old gentleman with past medical history significant for paroxysmal atrial fibrillation with previous unsuccessful cardioversion who was admitted by cardiology for initiation of antiarrhythmic therapy 1. Paroxysmal A. fib ?Patient is apparently symptomatic. Admitted by cardiology for initiation of antiarrhythmic therapy with sotalol. Patient has been admitted to a monitored bed. Daily EKGs ordered for monitoring of QT interval. Patient is on systemic anticoagulation with Eliquis Case was discussed with Dr. Anderson patient's attending -1Patient seen had a relatively uneventful night. Started on Tikosyn EKG read reviewed this a.m. QT is WNL -01/17/2021; patient remains on Tikosyn with daily monitoring of QT interval ordered with daily EKGs -01/18/2021; case discussed with Dr. Anderson patient be discharged home later today 2. Chronic lymphocytic leukemia ?Currently in remission 3. Hypertension - Blood pressure controlled, home medications continued with dose adjustment as needed 4. Dyslipidemia -Patient is on statin therapy, continued at home dose 5. Obesity - With a BMI of 33.3 patient was counseled on weight reduction 6. Obstructive sleep apnea ?PAP therapy when needed 7. Bilateral lower extremity lymphedema ?Ordered bilateral MANJU hoses 8. DVT prophylaxis ?Patient already on Eliquis Charges/Coding Visit Charges Inpatient E&M: 69550 Subs Hosp L2
--- NOTE | 2021-01-18 10:08 | PN.CARD_ITS ---
Subjective Subjective The patient is awake and alert. He denies any ongoing issues of classic angina pectoris or CHF/pulmonary edema. There is been no ongoing palpitations or rapid rates. He has had no near syncope or syncope. He has been ambulating without difficulty. Objective Data Vital Signs: Vital Signs Temp Pulse Resp BP Pulse Ox 97.2 F L 57 L 16 118/75 96 01/18/21 03:28 01/18/21 07:00 01/18/21 03:28 01/18/21 03:28 01/18/21 07:34 Oxygen Delivery Method Room Air Weight: 238 lb 12.17 oz Body Mass Index (BMI) 33.3 Intake & Output: Intake and Output for Last 24 Hours 01/16/21 01/17/21 01/18/21 23:59 23:59 23:59 Intake Total 1440 / 1680 1080 / 1200 240 / 240 Balance 1440 / 1680 1080 / 1200 240 / 240 Lab / Micro Data Result Diagrams: 01/16/21 05:14 01/18/21 04:35 Labs: Laboratory Results - last 24 hr 01/18/21 04:35: Sodium 139, Potassium 3.8, Chloride 105, Carbon Dioxide 26.0, Anion Gap 8, BUN 20 H, Creatinine 0.82, Estim Creat Clear Calc 84.18, Est GFR (MDRD) Af Amer 118, Est GFR (MDRD) Non-Af 98, BUN/Creatinine Ratio 24.5 H, Glucose 114 H, Calcium 8.7 Cardiology Labs/Tests 01/18/21 04:35: Sodium 139, Potassium 3.8, Chloride 105, Carbon Dioxide 26.0, Anion Gap 8, BUN 20 H, Creatinine 0.82, Est GFR (MDRD) Af Amer 118, Est GFR (MDRD) Non-Af 98, BUN/Creatinine Ratio 24.5 H, Glucose 114 H, Calcium 8.7 Rhythm: Atrial fibrillation EKG: Atrial fibrillation; no acute ECG changes Physical Exam Const alert, oriented x3 and no apparent distress General Appearance: cooperative and comfortable Orientation / Consciousness: awake Exam Limitations: no limitations HEENT normocephalic Eyes EOMs intact bilaterally Neck full ROM General: normal visual inspection Lymph Lymphatic: no lymphadenopathy noted Chest inspection of chest normal Resp normal respiratory effort and normal air movement Auscultation: clear to auscultation bilaterally; Negative for crackles, rales, rhonchi or wheezes Cardio regular rate, S1 normal heart sound, S2 normal heart sound, no murmurs, no rub, no gallops, no clicks and no JVD Jugular Venous Distention: Negative for JVD Rate: regular rate Rhythm: abnormal rhythm irregularly irregular Heart Sounds: S1 normal and S2 normal; Negative for click, gallop, murmur or rub Peripheral Pulses: pulses 2+ throughout GI normal to inspection, nondistended, normoactive bowel sounds Extremity normal to inspection General Extremity: Negative for edema Skin no rashes or lesions noted Neuro oriented x3 Psych mental status grossly normal Assessment & Plan Assessment/Plan (1) Encounter for monitoring anti-arrhythmic therapy: PLAN: The patient is being brought into the hospital for initiation of antiarrhythmic therapy. As noted below he has a history of atrial fibrillation. He has been on rate control therapy and anticoagulant therapy. He has undergone multiple synchronized biphasic DC cardioversions. Based upon his recurrence of atrial fibrillation he was given the option of consideration for antiarrhythmic therapy versus EP consultation for possible EPS/RFA. At the present time he elected to proceed with antiarrhythmic therapy. Status post review of his overall case and his underlying cardiac rhythm with respect to rate, etc., he was altered from an attempt at sotalol/Betapace therapy to dofetilide/Tikosyn therapy. He appears to be tolerating this thus far. Thus he is going to be monitored in the hospital with cardiac telemetry monitoring and ECG follow-up and laboratory follow-up as deemed appropriate. (2) Atrial fibrillation: QUALIFIERS: Atrial fibrillation type: persistent (not longstanding) Qualified Code(s): I48.19 - Other persistent atrial fibrillation PLAN: The patient is being brought into the hospital for initiation of antiarrhythmic therapy. The patient's previous laboratory studies were reviewed and demonstrated his renal function to be within acceptable limits for antiarrhythmic agents such as either dofetilide/Tikosyn or sotalol/Betapace. At the present time the patient will continue with his dofetilide/Tikosyn therapy. His beta-amber has been on hold based upon concerns of bradycardia. He will continue his anticoagulant therapy. He will be monitored with the telemetry monitoring ECG for any obvious adverse events/pro arrhythmic events. Over time depending upon his clinical course, if he does not convert to sinus rhythm, he will be considered for future repeat synchronized biphasic DC cardioversion to regain sinus rhythm. If over time, despite adjustment of his medications, etc., he regained sinus rhythm and then returned to atrial fibrillation or does not regain sinus rhythm then he will need to be referred to electrophysiology for consideration for EPS/RFA. (3) Atherosclerosis of [place] coronary artery of [place] heart without angina pectoris: PLAN: The patient has a history of underlying CAD. He has undergone noninvasive and invasive evaluation in the past. He will continue risk factor modification medical therapy. (4) Pure hypercholesterolemia: PLAN: The patient will continue medical management as deemed appropriate (5) Essential (primary) hypertension: PLAN: The patient's blood pressure will be followed during his hospitalization he will continue medical management with adjustment as needed. (6) YURI (obstructive sleep apnea): PLAN: The patient has a history of underlying YURI. He will continue supportive therapy. (7) Chronic lymphocytic leukemia (CLL), B-cell: QUALIFIERS: Leukemia Active/Remission status: in remission Qualified Code(s): C91.11 - Chronic lymphocytic leukemia of B-cell type in remission PLAN: The patient has a history of CLL. He will continue evaluation care as deemed appropriate by his other physicians. Addt'l Comments The patient will continue his antiarrhythmic monitoring this morning. If status post this morning's dose and follow-up ECG he remains stable and there are no concerning issues but hopefully he will be able to be released home later today for continued outpatient cardiovascular follow-up. Dr. Rankin from the [facility] hospitalist group has also been following the patient with respect to any general medicine concerns. His assistance has been most appreciated. This note was generated using a voice recognition system and there may be incorr ect words, spelling or punctuation that were not noted when reviewing the office note prior to saving.
[2021-01-18] MEDS: Loratadine 10 MG Tablet PO (10:57)
[2021-01-18] MEDS: Dofetilide 250 MCG Capsule PO (10:57)
[2021-01-18] MEDS: Losartan Potassium 25 MG Tablet PO (10:57)
[2021-01-18] MEDS: Furosemide 40 MG Tablet PO (10:57)
[2021-01-18] MEDS: APIXABAN 5 MG TABLET PO (10:57)
--- NOTE | 2021-01-18 15:04 | PCM.DC ---
Discharge Instructions Diet Discharge Diet: Low fat / Low cholesterol Activity Discharge Activity: Return to Normal Activity Follow Up Care Please Follow Up With: Jim Anderson MD When: The office will call you with when your next appt is, we will schedule it for 6-8 weeks Test Results: Test results from this visit will be discussed in further detail at your follow-up appointment, if applicable. Discharge Plan Admission Admit Date/Time: 01/15/21 09:29 Primary Reason for Your Visit: Medication adjustments Attending Provider: David Holloway NP Primary Care Provider: Med Villanueva Consulting Providers: Nimesh Rankin Discharge Orders/Prescriptions Prescriptions: New dofetilide 250 mcg Capsule 250 mcg PO Q12 30 Days Qty: 60 RF: 11 Continued atorvastatin 40 mg tablet 40 mg PO QHS RF: 0 (DME) HANDICAP Placard Qty: 1 RF: 0 losartan 50 mg tablet 25 mg PO DAILY RF: 0 albuterol sulfate 1 INHALER inhaler 1 - 2 puff INHALATION Q4H PRN PRN (Reason: copd) RF: 0 loratadine 10 MG tablet 10 mg PO DAILY RF: 0 doxazosin 2 MG tablet 2 mg PO QHS RF: 0 furosemide 40 mg tablet 40 mg PO DAILY RF: 0 amlodipine 10 mg tablet 5 mg PO QHS RF: 0 Eliquis 5 mg tablet 5 mg PO BID RF: 0 Discontinued carvedilol 6.25 mg tablet 6.25 mg PO BID RF: 0 Referrals / Follow Up: Med Villanueva MD [Primary Care Provider] - Disposition Discharge Orders: Discharge Patient (Routine); Ordered 01/18/21 Ordered By: Carolyn FAYE
--- NOTE | 2021-01-18 16:15 | PHA.DC.MC ---
Pharmacy Service has performed discharge medication reconciliation and counseling for this patient. 1. DOFETILIDE 250MCG PO Q12 The patient's discharge medication list was reviewed for discrepancies and discrepancies were resolved. Home Medications albuterol sulfate 1 - 2 puff INHALATION Q4H PRN PRN 07/22/16 loratadine 10 mg PO DAILY 09/03/16 atorvastatin 40 mg tablet 40 mg PO QHS tab 08/21/17 HANDICAP Placard #1 ea 04/11/19 losartan 50 mg tablet 25 mg PO DAILY 02/07/20 doxazosin 2 mg PO QHS 06/05/20 Eliquis 5 mg PO BID 01/15/21 amlodipine 5 mg PO QHS 01/15/21 furosemide 40 mg PO DAILY 01/15/21 dofetilide 250 mcg PO Q12 30 Days #60 cap 01/18/21 The patient was counseled on the following discharge medications and changes in medications for homegoing were reviewed. The Reason for Use, instructions for use, and potential side effects were reviewed for all new medications. The patient's questions regarding all of their medications were answered. The patient was able to verbally demonstrate an understanding of their discharge medications.
--- NOTE | 2021-01-18 16:39 | PCM.DC.SUM ---
Documented by User: YUNIER Larose 01/18/21 16:47 Providers Date of Admission: 01/15/21 Primary Care Physician: Dr. Med Villanueva MD Consultations 01/15/21 08:47 Consult: Hospitalist Routine Consulting Provider: Nimesh Rankin Reason for Consult: Medical Management EMERGENT Consult: No MD Notified: Yes Date Notified: 01/15/21 Time Notified: 08:47 Method of Notification: Verbal Reason For Visit: SOTALOL THERAPY/A. FIB Diagnosis Discharge Diagnosis (1) Atrial fibrillation: Status: Acute Code(s): I48.91 - Unspecified atrial fibrillation Qualifiers: Atrial fibrillation type: persistent (not longstanding) Qualified Code(s): I48.19 - Other persistent atrial fibrillation Plan: Patient was admitted for his persistent atrial fibrillation. He has undergone multiple synchronized biphasic cardioversions and has remained in atrial fibrillation. He was admitted for antiarrhythmic therapy. He was started on Tikosyn and has been elevating it. He will be discharged home on Tikosyn. His beta-amber will be placed on hold for concerns over bradycardia. He will continue with his anticoagulation. If he does not convert to sinus rhythm on his own we will then plan for an outpatient cardioversion. If he does not maintain sinus rhythm we will then consider a referral to EP. Medications at Discharge Home Medications albuterol sulfate 1 - 2 puff INHALATION Q4H PRN PRN 07/22/16 loratadine 10 mg PO DAILY 09/03/16 atorvastatin 40 mg tablet 40 mg PO QHS tab 08/21/17 HANDICAP Placard #1 ea 04/11/19 losartan 50 mg tablet 25 mg PO DAILY 02/07/20 doxazosin 2 mg PO QHS 06/05/20 Eliquis 5 mg PO BID 01/15/21 amlodipine 5 mg PO QHS 01/15/21 furosemide 40 mg PO DAILY 01/15/21 dofetilide 250 mcg PO Q12 30 Days #60 cap 01/18/21 Hospital Course Operations None Procedures None Summary of Care Provided Hospital Course: Patient was admitted for antiarrhythmic therapy for his persistent atrial fibrillation. He was started on Tikosyn. He has been tolerating this. He will be discharged home on Tikosyn. His beta-amber will be discontinued for concerns over beta-amber. He will continue with his anticoagulation. Plan will be to proceed with a cardioversion if patient does not convert on his own. Physical Exam Const alert, oriented x3 and no apparent distress General Appearance: cooperative and comfortable Orientation / Consciousness: awake Exam Limitations: no limitations HEENT normocephalic Eyes EOMs intact bilaterally Neck full ROM General: normal visual inspection Lymph Lymphatic: no lymphadenopathy noted Chest inspection of chest normal Resp normal respiratory effort and normal air movement Auscultation: clear to auscultation bilaterally; Negative for crackles, rales, rhonchi or wheezes Cardio regular rate, S1 normal heart sound, S2 normal heart sound, no murmurs, no rub, no gallops, no clicks and no JVD Jugular Venous Distention: Negative for JVD Rate: regular rate Rhythm: abnormal rhythm irregularly irregular Heart Sounds: S1 normal and S2 normal; Negative for click, gallop, murmur or rub Peripheral Pulses: pulses 2+ throughout GI normal to inspection, nondistended, normoactive bowel sounds Extremity normal to inspection General Extremity: Negative for edema Skin no rashes or lesions noted Neuro oriented x3 Psych mental status grossly normal Weight / BMI Weight Weight: 238 lb 12.17 oz Body Mass Index (BMI) 33.3 ABG / Lab / Microbiology Data Result Diagrams: 01/16/21 05:14 01/18/21 04:35 Laboratory: Laboratory Results - last 24 hr 01/18/21 04:35: Sodium 139, Potassium 3.8, Chloride 105, Carbon Dioxide 26.0, Anion Gap 8, BUN 20 H, Creatinine 0.82, Estim Creat Clear Calc 84.18, Est GFR (MDRD) Af Amer 118, Est GFR (MDRD) Non-Af 98, BUN/Creatinine Ratio 24.5 H, Glucose 114 H, Calcium 8.7 D/C Instructions Discharge Diet: Low fat / Low cholesterol Please Follow Up With: Jim Anderson MD When: The office will call you with when your next appt is, we will schedule it for 6-8 weeks Meaningful Use Info Meaningful Use Diagnoses (Choose all that apply): None applicable Discharge Plan Admission Admit Date/Time: 01/15/21 09:29 Primary Reason for Your Visit: Medication adjustments Attending Provider: David Holloway NP Primary Care Provider: Med Villanuvea Consulting Providers: Nimesh Rankin Instructions Additional Instructions / Restrictions: Patient Problems: Altered Health Status related to Hospitalization Patient Goals: *Optimal Level of Health *Keep Appointments *Medication Compliance *Remain Safe Discharge Orders/Prescriptions Prescriptions: New dofetilide 250 mcg Capsule 250 mcg PO Q12 30 Days Qty: 60 RF: 11 Continued atorvastatin 40 mg tablet 40 mg PO QHS RF: 0 (DME) HANDICAP Placard Qty: 1 RF: 0 losartan 50 mg tablet 25 mg PO DAILY RF: 0 albuterol sulfate 1 INHALER inhaler 1 - 2 puff INHALATION Q4H PRN PRN (Reason: copd) RF: 0 loratadine 10 MG tablet 10 mg PO DAILY RF: 0 doxazosin 2 MG tablet 2 mg PO QHS RF: 0 furosemide 40 mg tablet 40 mg PO DAILY RF: 0 amlodipine 10 mg tablet 5 mg PO QHS RF: 0 Eliquis 5 mg tablet 5 mg PO BID RF: 0 Discontinued carvedilol 6.25 mg tablet 6.25 mg PO BID RF: 0 Referrals / Follow Up: Med Villanueva MD [Primary Care Provider] - Carolyn Hancock PA [PHYSICIAN BAILING MACHINE OPERATOR] - 03/19/21 1:30 pm Disposition Disposition (needs filled in before D/C Order can be placed): Home, Self Care Documented by User: Dr. Jim Anderson MD 01/18/21 20:55 Providers Date of Admission: 01/15/21 Reason For Visit: SOTALOL THERAPY/A. FIB Medications at Discharge Home Medications albuterol sulfate 1 - 2 puff INHALATION Q4H PRN PRN 07/22/16 loratadine 10 mg PO DAILY 09/03/16 atorvastatin 40 mg tablet 40 mg PO QHS tab 08/21/17 HANDICAP Placard #1 ea 04/11/19 losartan 50 mg tablet 25 mg PO DAILY 02/07/20 doxazosin 2 mg PO QHS 06/05/20 Eliquis 5 mg PO BID 01/15/21 amlodipine 5 mg PO QHS 01/15/21 furosemide 40 mg PO DAILY 01/15/21 dofetilide 250 mcg PO Q12 30 Days #60 cap 01/18/21 ABG / Lab / Microbiology Data Result Diagrams: 01/16/21 05:14 01/18/21 04:35 Discharge Plan Admission Admit Date/Time: 01/15/21 09:29 Primary Reason for Your Visit: Medication adjustments Attending Provider: David Holloway NP Primary Care Provider: Med Villanueva Consulting Providers: Nimesh Rankin Instructions Additional Instructions / Restrictions: Patient Problems: Altered Health Status related to Hospitalization Patient Goals: *Optimal Level of Health *Keep Appointments *Medication Compliance *Remain Safe Discharge Orders/Prescriptions Prescriptions: New dofetilide 250 mcg Capsule 250 mcg PO Q12 30 Days Qty: 60 RF: 11 Continued atorvastatin 40 mg tablet 40 mg PO QHS RF: 0 (DME) HANDICAP Placard Qty: 1 RF: 0 losartan 50 mg tablet 25 mg PO DAILY RF: 0 albuterol sulfate 1 INHALER inhaler 1 - 2 puff INHALATION Q4H PRN PRN (Reason: copd) RF: 0 loratadine 10 MG tablet 10 mg PO DAILY RF: 0 doxazosin 2 MG tablet 2 mg PO QHS RF: 0 furosemide 40 mg tablet 40 mg PO DAILY RF: 0 amlodipine 10 mg tablet 5 mg PO QHS RF: 0 Eliquis 5 mg tablet 5 mg PO BID RF: 0 Discontinued carvedilol 6.25 mg tablet 6.25 mg PO BID RF: 0 Referrals / Follow Up: Med Villanueva MD [Primary Care Provider] - Carolyn Hancock PA [PHYSICIAN BAILING MACHINE OPERATOR] - 03/19/21 1:30 pm Disposition Disposition (needs filled in before D/C Order can be placed): Home, Self Care
== END 2021-01-18 16:28 | disposition home or self-care (01) | DRG 949 ==
LOC: PCUOUT 09:54
PROVIDERS: Internal Medicine; Internal Medicine Cardiovascular Disease; Admitting Provider Nurse Practitioner Family; PCP Family Medicine; Referring Provider Nurse Practitioner Family; Visit Provider Nurse Practitioner Family
DX: Z51.81 Encounter for therapeutic drug level monitoring (principal); I48.19 Other persistent atrial fibrillation; C91.11 Chronic lymphocytic leukemia of B-cell type in remission; I25.10 Atherosclerotic heart disease of native coronary artery without angina pectoris; I10 Essential (primary) hypertension; E78.00 Pure hypercholesterolemia, unspecified; J44.9 Chronic obstructive pulmonary disease, unspecified; I89.0 Lymphedema, not elsewhere classified; G47.33 Obstructive sleep apnea (adult) (pediatric); E66.9 Obesity, unspecified; Z68.33 Body mass index [BMI] 33.0-33.9, adult; Z79.01 Long term (current) use of anticoagulants; Z79.899 Other long term (current) drug therapy; Z87.891 Personal history of nicotine dependence
CPT/HCPCS: 36415; 80048; 83735; 85027; 93005

== ENCOUNTER → 2021-02-26 | Outpatient (CLI) | payer MEDICARE, BC, SELFPAY | END | disposition home or self-care (01) | LOC: LABSPEC 15:26 | PROVIDERS: PCP Family Medicine; Referring Provider Physician Assistant Surgical; Visit Provider Physician Assistant Surgical | DX: U07.1 COVID-19 (principal) | CPT/HCPCS: 87635; U0005; U0003 ==

== ENCOUNTER 2021-09-03 14:19 | Outpatient (CLI) | payer MEDICARE, BC, SELFPAY ==
[2021-09-03 15:39] LABS: PSA,Total- Diagnostic 4.59 ng/mL (0.0-4.0)
== END 2021-09-03 23:59 | disposition home or self-care (01) ==
LOC: LAB 14:22
PROVIDERS: PCP Family Medicine; Visit Provider Urology
DX: R97.20 Elevated prostate specific antigen [PSA] (principal)
CPT/HCPCS: 36415; 84153

== ENCOUNTER → 2022-02-12 | Outpatient (CLI) | payer MEDICARE, BC, SELFPAY ==
[2022-02-12 13:46] LABS: AST(SGOT) 14 U/L (15-37); Alanine Aminotransfer ALT/SGPT 33 U/L (16-61); Alkaline Phosphatase 77 U/L (45-117); Bilirubin, Direct 0.15 mg/dL (0.00-0.30); Cholesterol 107 mg/dL (200); Globulin 2.9 g/dL (2.2-4.2); High Density Lipoprotein 43 mg/dL; Protein, Total 6.9 g/dL (6.4-8.2); Triglycerides 96 mg/dL; Very Low Density Lipoprotein 19 mg/dL (5-40)
--- NOTE | 2022-02-12 14:16 | NEURO_ITS ---
NCS and/or EMG Patient Report Ordering Doctor: Med Villanueva DATE OF SERVICE: 02/12/22 Royal presents electrodiagnostic testing of the left upper limb. He reports numbness and tingling, primarily in the first 3 digits of the left hand. Electrodiagnostic findings: Left median motor nerve demonstrates prolonged dista l latency with normal amplitude and reduced conduction velocity. Normal left ulnar motor response, including conduction across the elbow. Prolonged median ulnar F waves are noted. Absent left median sensory latency at the wrist. Prolonged left median palmar latency. Normal ulnar and radial sensory responses. On needle EMG, all muscles tested in the left upper limb showed no evidence of denervation with normal motor unit action potentials. Electrodiagnostic impression: This is an abnormal study. 1. Electrodiagnostic findings demonstrate left-sided median mononeuropathy. This is consistent with a moderate left carpal tunnel syndrome. 2. No electrodiagnostic evidence is noted for cervical radiculopathy.
== END | disposition home or self-care (01) ==
PROVIDERS: Internal Medicine Cardiovascular Disease; PCP Family Medicine; Referring Provider Family Medicine; Visit Provider Family Medicine
DX: R20.2 Paresthesia of skin (principal); E78.00 Pure hypercholesterolemia, unspecified
CPT/HCPCS: 36415; 80061; 80076; 95886; 95910

== ENCOUNTER → 2022-05-15 | Outpatient (CLI) | payer MEDICARE, BC, SELFPAY ==
[2022-05-15 12:23] LABS: Hematocrit 41.9 % (40-54); Hemoglobin 13.8 g/dL (13.0-16.5); Mean Corp Hgb Conc 32.9 g/dL (32-36); Mean Corpuscular Hgb 29.8 pg (27.0-32.0); Mean Corpuscular Volume 90.5 fL (80-94); Mean Platelet Vol. 10.1 fl (6.2-12.0); Platelet Count 191 K/mm3 (150-450); RBC Distribution Width CV 13.5 % (11.6-14.6); RBC Distribution Width SD 44.6 fl (35.1-43.9); Red Blood Count 4.63 M/mm3 (4.6-6.2); White Blood Count 29.6 K/mm3 (4.4-11.0)
[2022-05-15 12:48] LABS: Anion Gap 3 (5-15); BUN 17 mg/dL (7-18); BUN/Creat Ratio 20.7 RATIO (10-20); Calcium,Total 8.8 mg/dL (8.5-10.1); Chloride 106 mmol/L (98-107); Creatinine, Serum 0.82 mg/dL (0.70-1.30); EST Glomerular Filtration Rate 97 mL/min (>60); Est Glom Filt Rate - Afr Amer 117 mL/min (>60); Glucose 125 mg/dL (74-106); Potassium 3.8 mmol/L (3.5-5.1); Sodium Level 140 mmol/L (136-145)
== END | disposition home or self-care (01) ==
LOC: LAB 11:22
PROVIDERS: PCP Family Medicine; Visit Provider Orthopaedic Surgery
DX: Z01.818 Encounter for other preprocedural examination (principal)
CPT/HCPCS: 36415; 80048; 85027

== ENCOUNTER → 2022-06-20 | Outpatient (CLI) | payer MEDICARE, BC, SELFPAY ==
[2022-06-20 12:51] LABS: Absolute Lymphocyte Count 20.84 X10^3/uL (0.83-4.51); Absolute Neutrophil Count 5.8 X10^3/uL (2.0-7.7); Basophil# 0.11 X10^3/uL; Basophil% 0.4 % (0-1); Eosinophil# 0.22 X10^3/uL; Eosinophils% 0.8 % (0-5); Hematocrit 40.1 % (40-54); Hemoglobin 12.6 g/dL (13.0-16.5); Lymphocyte # 20.84 X10^3/ul (0.83-4.51); Lymphocyte % 71.2 % (19-41); Mean Corp Hgb Conc 31.4 g/dL (32-36); Mean Corpuscular Hgb 28.1 pg (27.0-32.0); Mean Corpuscular Volume 89.3 fL (80-94); Mean Platelet Vol. 9.1 fl (6.2-12.0); Monocyte# 2.18 X10^3/uL; Monocyte% 7.4 % (0-10); NRBC Flagged by Analyzer 0 % (0-5); Neutrophil # 5.83 X10^3/uL (2.7-7.7); Neutrophil % 19.9 % (47-70); POSITIVE DIFFERENTIAL YES; POSITIVE MORPHOLOGY YES; Platelet Count 280 K/mm3 (150-450); RBC Distribution Width CV 12.7 % (11.6-14.6); RBC Distribution Width SD 41.9 fl (35.1-43.9); Red Blood Count 4.49 M/mm3 (4.6-6.2); White Blood Count 29.3 K/mm3 (4.4-11.0)
[2022-06-20 12:55] LABS: Differential Indicated SCAN CRITERIA MET
[2022-06-20 13:17] LABS: Atypical Lymphocyte 1+ %; Reactive Lymphocyte 2+; Smudge Cells 1+
[2022-06-20 13:34] LABS: ALB/GLOB Ratio 1.2 RATIO (0.9-2.4); AST(SGOT) 14 U/L (15-37); Alanine Aminotransfer ALT/SGPT 36 U/L (16-61); Albumin, Serum 3.5 g/dL (3.2-5.0); Alkaline Phosphatase 103 U/L (45-117); Anion Gap 6 (5-15); BUN 15 mg/dL (7-18); BUN/Creat Ratio 18.9 RATIO (10-20); Calcium,Total 8.7 mg/dL (8.5-10.1); Chloride 105 mmol/L (98-107); Creatinine, Serum 0.79 mg/dL (0.70-1.30); EST Glomerular Filtration Rate 101 mL/min (>60); Est Glom Filt Rate - Afr Amer 122 mL/min (>60); Glucose 119 mg/dL (74-106); Magnesium 2.1 mg/dL (1.6-2.6); PSA,Total- Diagnostic 7.49 ng/mL (0.0-4.0); Protein, Total 6.5 g/dL (6.4-8.2); Sodium Level 138 mmol/L (136-145)
[2022-06-24 09:20] LABS: Pathologist Review Reviewed
== END | disposition home or self-care (01) ==
PROVIDERS: PCP Family Medicine; Referring Provider Internal Medicine Gastroenterology; Visit Provider Internal Medicine Gastroenterology
DX: R19.7 Diarrhea, unspecified (principal); R97.20 Elevated prostate specific antigen [PSA]
CPT/HCPCS: 36415; 80053; 83735; 84153; 85025; 86140

== ENCOUNTER → 2022-06-23 | Outpatient (CLI) | payer MEDICARE, BC, SELFPAY | END | disposition home or self-care (01) | PROVIDERS: PCP Family Medicine; Visit Provider Internal Medicine Gastroenterology | DX: R19.7 Diarrhea, unspecified (principal) | CPT/HCPCS: 82274; 83630; 87177; 87209; 87493; 87506 ==

== ENCOUNTER → 2022-07-10 | Outpatient (CLI) | payer MEDICARE, BC, SELFPAY ==
[2022-07-10 12:17] LABS: Basophil# 0.08 X10^3/uL; Eosinophil# 0.25 X10^3/uL; Hematocrit 37.4 % (40-54); Hemoglobin 11.6 g/dL (13.0-16.5); Mean Corpuscular Hgb 27.5 pg (27.0-32.0); Mean Corpuscular Volume 88.6 fL (80-94); Mean Platelet Vol. 9.2 fl (6.2-12.0); Monocyte# 1.87 X10^3/uL; NRBC Flagged by Analyzer 0 % (0-5); POSITIVE DIFFERENTIAL YES; POSITIVE MORPHOLOGY YES; Platelet Count 328 K/mm3 (150-450); RBC Distribution Width CV 13.1 % (11.6-14.6); RBC Distribution Width SD 42.4 fl (35.1-43.9); Red Blood Count 4.22 M/mm3 (4.6-6.2); White Blood Count 25.4 K/mm3 (4.4-11.0)
[2022-07-10 12:18] LABS: Differential Indicated SCAN CRITERIA MET
[2022-07-10 12:40] LABS: Blast 1 % (0-0); Eosinophil 1 % (0-5); Lymphocyte 60 % (19-41); Metamyelocyte 1 % (0-1); Monocyte 4 % (0-10); Myelocyte 1 % (0-0); Neutrophil-Band 2 % (0-5); Neutrophil-Segmented 30 % (47-70); Platelet Estimate ADEQUATE (ADEQ); Total Cells Counted 100 (MANUAL DIFF)
[2022-07-10 12:41] LABS: Red Cell Morphology NORM C+C NORMAL (NORM C&C); Scan Smear per Review Criteria MANUAL DIFF; Smudge Cells 1+
[2022-07-10 12:42] LABS: Absolute Neutrophil Count 8.1 X10^3/uL (2.0-7.7)
[2022-07-10 12:56] LABS: ALB/GLOB Ratio 1.1 RATIO (0.9-2.4); AST(SGOT) 34 U/L (15-37); Alanine Aminotransfer ALT/SGPT 63 U/L (16-61); Albumin, Serum 3.2 g/dL (3.2-5.0); Alkaline Phosphatase 143 U/L (45-117); Anion Gap 6 (5-15); BUN 12 mg/dL (7-18); BUN/Creat Ratio 15.9 RATIO (10-20); Calcium,Total 8.7 mg/dL (8.5-10.1); Chloride 103 mmol/L (98-107); Creatinine, Serum 0.76 mg/dL (0.70-1.30); EST Glomerular Filtration Rate 106 mL/min (>60); Est Glom Filt Rate - Afr Amer 129 mL/min (>60); Glucose 130 mg/dL (74-106); LDH 178 U/L (87-241); PSA,Total- Diagnostic 5.44 ng/mL (0.0-4.0); Potassium 4.1 mmol/L (3.5-5.1); Protein, Total 6.2 g/dL (6.4-8.2); Sodium Level 139 mmol/L (136-145); Uric Acid 3.7 mg/dL (3.5-7.2)
[2022-07-10 19:55] LABS: Xtra Tube EP Lab EXTRA TUBE
[2022-07-14 10:46] LABS: Pathologist Review Reviewed
== END | disposition home or self-care (01) ==
PROVIDERS: Internal Medicine Medical Oncology; PCP Family Medicine; Visit Provider Family Medicine
DX: K52.9 Noninfective gastroenteritis and colitis, unspecified (principal); R97.20 Elevated prostate specific antigen [PSA]
CPT/HCPCS: 36415; 80053; 83615; 84153; 84550; 85025; 86140

== ENCOUNTER → 2022-07-15 | Outpatient (CLI) | payer MEDICARE, BC, SELFPAY | END | disposition home or self-care (01) | LOC: LABSPEC 14:28 | PROVIDERS: PCP Family Medicine; Visit Provider Family Medicine | DX: K52.9 Noninfective gastroenteritis and colitis, unspecified (principal) | CPT/HCPCS: 82274; 83630 ==

== ENCOUNTER → 2022-07-22 | Outpatient (CLI) | payer MEDICARE, BC, SELFPAY ==
--- NOTE | 2022-07-22 08:32 | CT_ITS ---
STUDY: CT ABDOMEN AND PELVIS WITH CONTRAST REASON FOR EXAM: Male, 77 years old. ABD PAIN. CLL. COPD. RADIATION DOSAGE (If Supplied By Facility): CTDIvol = ( 19.54 ) mGy, DLP = ( 2277.86 ) mGycm TECHNIQUE: Transaxial images were obtained from the dome of the diaphragm to the symphysis pubis with oral contrast. Oral and amp; IV Gastrografin and amp; 100mL Isovue-300 was administered. Sagittal and coronal images were reconstructed. Individualized dose optimization techniques were used for this CT. COMPARISON: Comparison is made with prior study 03/26/2018. FINDINGS: Minimal linear scarring at the right lung base. Coronary artery calcification. Normal liver. Normal gallbladder and extrahepatic biliary system. There is mild splenomegaly. Normal pancreas. Normal bilateral adrenal glands. Normal right kidney. Normal left kidney. Normal visualized stomach. Normal small intestine. There are colonic diverticula consistent with diverticulosis. The appendix is visualized and appears normal. There is diffuse atherosclerotic calcification of the abdominal aorta and its major visceral branches, without a demonstrated aneurysm. Normal inferior vena cava. Multiple slightly enlarged lymph nodes are seen in the mesenteric fat in the periceliac region as well as in the region surrounding the pancreatic head. Multiple small retroperitoneal lymph nodes are seen as well. There is also evidence of a enlarged bilateral iliac lymph nodes although these have decreased in size as compared to prior study. Diffuse bladder wall thickening although the bladder is not completely distended. There is enlargement of the prostate gland. This measures 5 cm x 4.8 cm. Central calcifications are seen. This causes indentation of the bladder base. There is a small umbilical hernia containing nondilated small bowel. There are mild degenerative changes of the visualized lumbar spine. CT/Abdomen/Pelvis WITH Contrast IMPRESSION: Residual retroperitoneal, peritoneal and pelvic lymph nodes although these have decreased in size as compared to prior study. Prostatic enlargement with indentation at the bladder base. Electronically Signed: Chase Romero MD at 12:40 EST ,
[2022-07-22] MEDS: 0.9% Saline Lock 10 ML Syringe IV (12:25)
== END | disposition home or self-care (01) ==
LOC: CT 08:30
PROVIDERS: PCP Family Medicine
DX: R10.84 Generalized abdominal pain (principal)
CPT/HCPCS: 36591; 74177; 80053; 83615; 84550; 85025; Q9967; A4216

== ENCOUNTER → 2022-08-07 | Outpatient (CLI) | payer MEDICARE, BC, SELFPAY ==
[2022-08-07 15:44] LABS: Absolute Lymphocyte Count 40.73 X10^3/uL (0.83-4.51); Absolute Neutrophil Count 6.4 X10^3/uL (2.0-7.7); Basophil# 0.18 X10^3/uL; Basophil% 0.4 % (0-1); Eosinophil# 0.41 X10^3/uL; Eosinophils% 0.8 % (0-5); Hematocrit 41.1 % (40-54); Hemoglobin 12.8 g/dL (13.0-16.5); Lymphocyte # 40.73 X10^3/ul (0.83-4.51); Lymphocyte % 82.9 % (19-41); Mean Corp Hgb Conc 31.1 g/dL (32-36); Mean Corpuscular Hgb 27.5 pg (27.0-32.0); Mean Corpuscular Volume 88.2 fL (80-94); Monocyte# 1.18 X10^3/uL; Monocyte% 2.4 % (0-10); NRBC Flagged by Analyzer 0.1 % (0-5); Neutrophil # 6.43 X10^3/uL (2.7-7.7); Neutrophil % 13.1 % (47-70); POSITIVE COUNT YES; POSITIVE DIFFERENTIAL YES; POSITIVE MORPHOLOGY YES; Platelet Count 223 K/mm3 (150-450); RBC Distribution Width CV 15.4 % (11.6-14.6); RBC Distribution Width SD 48.8 fl (35.1-43.9); Red Blood Count 4.66 M/mm3 (4.6-6.2)
[2022-08-07 16:05] LABS: Differential Indicated SCAN CRITERIA MET; White Blood Count 49.1 K/mm3 (4.4-11.0)
[2022-08-07 16:25] LABS: ALB/GLOB Ratio 1.6 RATIO (0.9-2.4); AST(SGOT) 15 U/L (15-37); Alanine Aminotransfer ALT/SGPT 35 U/L (16-61); Albumin, Serum 3.9 g/dL (3.2-5.0); Alkaline Phosphatase 95 U/L (45-117); Anion Gap 6 (5-15); BUN 17 mg/dL (7-18); BUN/Creat Ratio 22.5 RATIO (10-20); Bilirubin, Direct 0.17 mg/dL (0.00-0.30); Chloride 101 mmol/L (98-107); Creatinine, Serum 0.76 mg/dL (0.70-1.30); EST Glomerular Filtration Rate 106 mL/min (>60); Est Glom Filt Rate - Afr Amer 129 mL/min (>60); Globulin 2.5 g/dL (2.2-4.2); Glucose 107 mg/dL (74-106); Potassium 3.9 mmol/L (3.5-5.1); Protein, Total 6.4 g/dL (6.4-8.2); Sodium Level 138 mmol/L (136-145)
[2022-08-07 16:56] LABS: Differential Comment SCANNED
[2022-08-07 16:57] LABS: Atypical Lymphocyte 1+ %; Reactive Lymphocyte 1+; Smudge Cells 1+
[2022-08-08 13:23] LABS: Pathologist Review Reviewed
== END | disposition home or self-care (01) ==
LOC: LAB 15:08
PROVIDERS: Nurse Practitioner Gerontology; PCP Family Medicine; Visit Provider Internal Medicine Gastroenterology
DX: R74.8 Abnormal levels of other serum enzymes (principal)
CPT/HCPCS: 36415; 80053; 82248; 85025

== ENCOUNTER → 2022-08-19 | Outpatient (CLI) | payer MEDICARE, BC, SELFPAY ==
[2022-08-19 12:44] LABS: PSA,Total- Diagnostic 5.26 ng/mL (0.0-4.0)
== END | disposition home or self-care (01) ==
LOC: LAB 11:18
PROVIDERS: PCP Family Medicine; Referring Provider Urology; Visit Provider Urology
DX: R97.20 Elevated prostate specific antigen [PSA] (principal)
CPT/HCPCS: 36415; 84153

== ENCOUNTER → 2022-08-27 | Outpatient (CLI) | payer MEDICARE, BC, SELFPAY | END | disposition home or self-care (01) | PROVIDERS: PCP Family Medicine; Visit Provider Internal Medicine Cardiovascular Disease | DX: I48.91 Unspecified atrial fibrillation (principal) | CPT/HCPCS: 93225; 93226 ==

== ENCOUNTER → 2022-09-11 | Outpatient (CLI) | payer MEDICARE, BC, SELFPAY ==
--- NOTE | 2022-09-11 14:21 | RAD_ITS ---
STUDY: X-RAY - CERVICAL SPINE REASON FOR EXAM: Male, 77 years old. Neck pain. TECHNIQUE: 4 images were performed. COMPARISON: None FINDINGS: There are degenerative changes of the anterior atlantoaxial articulation. Normal odontoid process. There is straightening of the normal cervical lordosis. There is multi-level endplate spondylosis. There is multi-level degenerative disc disease with multilevel disc space narrowing. There is no evidence of acute fracture or loss of vertebral axial height. There is maintenance of normal alignment. The soft tissue structures are unremarkable. RAD/Cerv Spine 2 or 3 Views IMPRESSION: Degenerative changes of the cervical spine without fracture or dislocation. Electronically Signed: Avel Valentin DO at 18:04 EDT ,
== END | disposition home or self-care (01) ==
LOC: RAD 14:19
PROVIDERS: PCP Family Medicine
DX: M50.30 Other cervical disc degeneration, unspecified cervical region (principal)
CPT/HCPCS: 72040

== ENCOUNTER 2022-10-16 14:00 | Outpatient (RCR) | payer MEDICARE, BC, SELFPAY ==
--- NOTE | 2022-09-18 13:16 | HP.PTEVAL ---
Patient's Visit Information KERON MAYER is a 77 year old M referred to Physical Therapy by CAMILA CORTES with a diagnosis of Neck pain. Date of Evaluation: 09/18/22 Physical Therapist: Gómez Calixto, PT, ATC - Visit Plan Frequency: 2x /Week Duration: 3-6 Plan: Assess benefit of traction on next visit. Then add DTR and scapular stab ex's next visit. - Subjective Pt reports he became ill at the beginning of the year, and notes he had overall body pain as a result. Pt notes he was given prednisone which helped to take away all the pain in the legs, but notes his neck remained stiff. Pt reports the pain has progressed and is at its all time high right now. Pt denies any UE radiculopathy at this time, but notes he gets tingling in his finger tips. Pt reports he has had xrays which revealed osteoarthritis. Pt denies any head aches at this time. Pt reports occasional sleep difficulty at times when he rolls from one side to the other. 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 Pt reports he is unaware of what provokes his pain. Pt reports there is nothing but pain meds that help to alleviate his pain. 8/10 pain while at rest, 9/10 pain at worst. - Pain neck pain Pain Intensity (Out of 10): 8 Pain Intensity Range: 9 - Objective Neuro: B UE sensation is WNL to light touch. B bicipital reflex= 2/3. Palpation: Sig muscle guarding throughout c/s. No obvious deformity at this time. MMT: B UE's are grossly 5/5 throughout. ROM: Pt is severely limited with all ROM throughout c/s with the exception of flexion which is WNL. Repeated movements: RPIS 10x3 better, RRIS 10x3 better. Special testing: Pos apley compression test - Goals Goal 1:: Decrease neck pain x 50% to aid with sleep Goal Time Frame: 4-6 Weeks Goal 2:: Increase neck ROM by one grade in all planes to aid with driving Goal Time Frame: 4-6 Weeks Goal 3:: I with HEP Goal Time Frame: 4-6 Weeks - Rehabilitation Potential Physical Therapy Diagnosis: Pt has neck pain, muscle guarding, and limited ROM secondary to degenerative changes in c/s Rehabilitation Potential: Good - Anticipated Interventions Patient/Client Instruction: Educate patient on: Condition, Plan of Care For the Purpose of:: To improve self management Therapeutic Exercise to Include: Strength training, Body mechanics, Postural training, Flexibilty training, Active ROM, Stephanie Exercises, Scapular Strength/Stabilization For the Purpose of:: To decrease pain, To increase ROM, To improve muscle performance and motor function Manual Therapy Techniques to Include: Soft tissue mobilization For the Purpose of:: To decrease pain, To increase ROM Thermo therapy (hot pack): Yes Ultrasound (thermal/non thermal): Yes For the Purpose of:: To decrease pain Thank you for the opportunity to evaluate your patient. For Medicare and Medicare HMO plans, please review the plan of care and approve it. It will need to be FAXED BACK to us at [phone] for Medicare purposes. For Medicare only, by signing this I certify the plan of care. Please let me know if there are questions or concerns regarding this plan of care. Physician Signature: Date:
--- NOTE | 2022-12-11 11:27 | HP.PTDCNRP_ITS ---
Patient Information Patient Information: KERON MAYER was seen in my office for initial evaluation on 09/18/22. The following Plan of Care was established for this patient: POC Established Initial Frequency: 2x /Week Initial Duration: 3-6 Anticipated Interventions Patient/Client Instruction: Educate patient on: Condition and Plan of Care For the Purpose of:: To improve self management Therapeutic Exercise to Include: Strength training, Body mechanics, Postural training, Flexibilty training, Active ROM, Stephanie Exercises and Scapular Stre ngth/Stabilization For the Purpose of:: To decrease pain, To increase ROM and To improve muscle performance and motor function Manual Therapy Techniques to Include: Soft tissue mobilization For the Purpose of:: To decrease pain and To increase ROM Thermo therapy (hot pack): Yes Ultrasound (thermal/non thermal): Yes For the Purpose of:: To decrease pain Last Seen Last Seen: This patient was last seen in our office . Pertinent comments regarding their Physical therapy will appear below: Pt was treated for 7 PT visits for neck pain through the date of 10/16/22. Pt has not returned through todays date and is discontinued at this time. At this point I will be discontinuing this patient from physical therapy. I would be happy to see this patient again in the future if found appropriate by the physician. Thank you! Gómez Claixto, PT, ATC Balance/Gait/Functional tests Balance/Special Test Scores Oswestry Neck Score: 23
== END 2022-10-16 19:00 | disposition home or self-care (01) ==
LOC: PT 14:00
PROVIDERS: PCP Family Medicine
DX: M54.2 Cervicalgia (principal); R29.898 Other symptoms and signs involving the musculoskeletal system
CPT/HCPCS: 97012; 97140; 97161; 97164; 97530

== ENCOUNTER → 2022-11-10 | Outpatient (CLI) | payer MEDICARE, BC, SELFPAY ==
[2022-11-10 11:42] LABS: AST(SGOT) 27 U/L (15-37); Alanine Aminotransfer ALT/SGPT 40 U/L (16-61); Albumin, Serum 3.8 g/dL (3.2-5.0); Alkaline Phosphatase 125 U/L (45-117); Bilirubin, Direct 0.19 mg/dL (0.00-0.30); Cholesterol 93 mg/dL (200); Globulin 2.9 g/dL (2.2-4.2); High Density Lipoprotein 35 mg/dL; Protein, Total 6.7 g/dL (6.4-8.2); Triglycerides 120 mg/dL; Very Low Density Lipoprotein 24 mg/dL (5-40)
== END | disposition home or self-care (01) ==
LOC: LAB 10:17
PROVIDERS: PCP Family Medicine; Referring Provider Nurse Practitioner Gerontology; Visit Provider Nurse Practitioner Gerontology
DX: E78.00 Pure hypercholesterolemia, unspecified (principal)
CPT/HCPCS: 36415; 80061; 80076

== ENCOUNTER → 2023-07-14 | Outpatient (CLI) | payer MEDICARE, BC, SELFPAY ==
--- OUTSIDE RECORDS SUMMARY | 2023-07-14 11:07 | XMS RPT_ITS | CCD ---
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 Name Role Phone Brooke BAH, Carolyn Lal Unavailable [phone] BRITT Hancock, Carolyn Bernard Unavailable [phone] Augustine Marques Y Unavailable Unavailable Darwin Toscanoi Unavailable Unavailable CHRISTY MIX Attending Unavailable JIM ZAIDI Referring Unavailable KE VILLANUEVA Primary Care Unavailable Camila Taylor Unavailable Unavailable Ke Villanueva Unavailable Unavailable Ke Villanueva Unavailable Unavailable Laura Teague Unavailable Unavailkate e Laura Tegaue Unavailable Unavailkate e Ke Villanueva Unavailable Unavailable Ke Villanueva Primary Care Provider [phone] Jim Zaidi Unavailable Heraclio Shin Unavailable Ke Villanueva Unavailable Unavailable Unavailable Unavailable Unavailable Dr. Ke Villanueva Referring Unavailable Kay, Dr. Jovel Attending Unavailable Kay, Dr. Jovel Primary Care Unavailable Kay, Dr. Jovel Primary Care Unavailable Brittany, Dr. Franny Jeffrey Referring Unava ilazam Clement, Dr. Franny Jeffrey Attending Unava ilazam Villanueva, Dr. Jovel Referring Unavailable Kay, Dr. Jovel Attending Unavailable Kay, Dr. Jovel Primary Care Unavailable Brittany, Dr. Franny Jeffrey Attending Lakshmiva pam Villanueva, Dr. Jovel Primary Care Unavailable Brittany, Dr. Franny Jeffrey Referring Unava ilable Kay, Dr. Jovel Referring Unavailable Kay, Dr. Jovel Attending Unavailable Kay, Dr. Jovel Primary Care Unavailable Kay, Dr. Jovel Primary Care Unavailable Lucia, Dr. Kelin Mix Referring Unavailable Lucia, Dr. Kelin Mix Attending Unavailable Kay, Dr. Jovel Referring Unavailable Kay, Dr. Jovel Attending Unavailable Kay, Dr. Jovel Primary Care Unavailable Kay, Dr. Jovel Primary Care Unavailable Kay, Dr. Jovel Referring Unavailable Kay, Dr. Jovel Attending Unavailable Kay, Dr. Jovel Referring Unavailable Kay, Dr. Jovel Attending Unavailable Kay, Dr. Jovel Primary Care Unavailable Ke Villanueva MD Primary Care Provider [phone] Ke Villanueva MD Unavailable FRANNY CLEMENT Attending Unavailable KE VILLANUEVA Primary Care Unavailable KE VILLANUEVA Attending Unavailable KE VILLANUEVA Primary Care Unavailable CAMILA TAYLOR Attending Unavailable KE VILLANUEVA Primary Care Unavailable KE VILLANUEVA Attending Unavailable KE VILLANUEVA Primary Care Unavailable KE VILLANUEVA Referring Unavailable KE VILLANUEVA Primary Care Unavailable KE VILLANUEVA Primary Care Unavailable Medications Current Medications Medication Drug Class(es) Dates Sig (Normalized) Sig (Original) amLODIPine 5 mg oral tablet (20 sources) Dihydropyridine Calcium Channel Samia Start: 10-01-2022 take 1 tablet by mouth in the morning amLODIPine (Norvasc) 5 mg tablet Indications: Essential hypertension, benign Take 1 tablet (5 mg) by mouth in the morning and 1 tablet (5 mg) at noon. 180 tablet 1 10/01/2022 Active Completed/Discontinued Medications Medication Drug Class(es) Dates Sig (Normalized) Sig (Original) 200 actuat albuterol 0.09 mg/actuat metered dose inhaler (20 sources) beta2-Adrenergic Agonist Start: 02-27-2015 PROAIR HFA 108 (90 Base) MCG/ACT AERS as directed ALBUTEROL SULFATE [id number] Carolyn Hancock PA-C Problems Active Problems Problem Classification Problem Date Documented Da te Episodic/Chronic Cardiac dysrhythmias (20 sources) Persistent atrial fibrillation; Translations: [Atrial fibrillation] Onset: 09-30-2022 Resolved: 05-12-2023 11-29-2018 Chronic Past or Other Problems Problem Classification Problem Date Documented Da te Episodic/Chronic Abdominal pain (2 sources) Left lower quadrant pain; Translations: [Left lower quadrant pain] Onset: 10-01-2022 Episodic Acquired foot deformities (20 sources) Talipes planus; 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 foot] Resolved: 08-03-2017 Episodic Fluid and electrolyte disorders (20 sources) Hypokalemia; Translations: [Hypopotassemia] Onset: 09-30-2022 09-30-2022 Episodic Open wounds of extremities (5 sources) Disorder of lower extremity; Translations: [Open wound of knee, leg [except thigh], and ankle, without mention of complication] Resolved: 07-09-2022 Episodic Other and unspecified benign neoplasm (1 source) Lipoma of skin and subcutaneous tissue (excluding face); Translations: [Lipoma of other skin and subcutaneous tissue] Onset: 08-29-2008 08-29-2008 Episodic Other and unspecified benign neoplasm (2 sources) Lipoma (clinical); Translations: [Benign lipomatous neoplasm, unspecified] Onset: 08-29-2008 09-30-2022 Episodic Other bone disease and musculoskeletal deformities (2 sources) Bone pain; Translations: [Other specified disorders of bone, unspecified site] Onset: 10-01-2022 Resolved: 05-12-2023 10-01-2022 Episodic Other bone disease and musculoskeletal deformities (2 sources) Other specified disorders of bone, unspecified site; Translations: [Other specified disorders of bone, unspecified site] Onset: 10-01-2022 Episodic Other circulatory disease (4 sources) Carotid bruit; Translations: [Other specified symptoms and signs involving the circulatory and respiratory systems] Onset: 01-10-2016 01-10-2016 Episodic Other connective tissue disease (4 sources) Olecranon bursitis; Translations: [Olecranon bursitis, left elbow] 02-14-2013 Episodic Other connective tissue disease (20 sources) Plantar fasciitis; Translations: [Plantar fascial fibromatosis] Resolved: 08-03-2017 Episodic Other connective tissue disease (20 sources) Paraparesis; Translations: [Other musculoskeletal symptoms referable to limbs] Resolved: 05-11-2019 Episodic Other connective tissue disease (2 sources) Pain in left leg; Translations: [Pain in left leg] Onset: 10-01-2022 Episodic Other connective tissue disease (2 sources) Other symptoms and signs involving the musculoskeletal system; Translations: [Other symptoms and signs involving the musculoskeletal system] Onset: 09-08-2022 Episodic Other diseases of kidney and ureters (20 sources) Renal mass; Translations: [Unspecified disorder of kidney and ureter] Resolved: 08-03-2017 Chronic Other gastrointestinal disorders (1 source) Alteration in bowel elimination; Translations: [Change in bowel habits] Onset: 07-23-2009 07-23-2009 Episodic Other gastrointestinal disorders (2 sources) Altered bowel function; Translations: [Change in bowel habit] Onset: 07-23-2009 Resolved: 05-12-2023 09-30-2022 Episodic Other lower respiratory disease (4 sources) Dyspnea; Translations: [Shortness of breath] Onset: 01-04-2015 01-04-2015 Episodic Other lower respiratory disease (20 sources) H/O: respiratory disease; Translations: [Personal history of other diseases of respiratory system] Resolved: 08-03-2017 Episodic Other lower respiratory disease (3 sources) Dyspnea on exertion; Translations: [Shortness of breath] Onset: 09-30-2022 Resolved: 05-12-2023 11-29-2018 Episodic Other nervous system disorders (15 sources) Paresthesia of hand ; Translations: [Disturbance of skin sensation] Onset: 09-30-2022 09-30-2022 Episodic Other non-traumatic joint disorders (4 sources) Acute ankle pain; Translations: [Pain in joint, ankle and foot] Resolved: 07-09-2022 Episodic Other nutritional; endocrine; and metabolic disorders (1 source) Obesity; Translations: [Morbid obesity] Resolved: 11-21-2020 Chronic Other nutritional; endocrine; and metabolic disorders (20 sources) Severe obesity; Translations: [Morbid obesity] Resolved: 11-21-2020 Chronic Other upper respiratory infections (20 sources) Acute upper respiratory infection; Translations: [Acute upper respiratory infections of unspecified site] Resolved: 07-11-2020 Episodic Residual codes; unclassified (4 sources) FH: Hypertension; Translations: [Family history of ischemic heart disease and other diseases of the circulatory system] 01-04-2015 Episodic Residual codes; unclassified (20 sources) Edema of lower extremity; Translations: [Edema] Resolved: 05-11-2019 Episodic Skin and subcutaneous tissue infections (5 sources) Cellulitis of lower limb; Translations: [Cellulitis and abscess of leg, except foot] Resolved: 07-09-2022 Episodic Spondylosis; intervertebral disc disorders; other back problems (2 sources) Cervicalgia; Translations: [Cervicalgia] Onset: 09-08-2022 Episodic Unclassified (10 sources) Patient encounter status; Translations: [Encounter for preventive health examination] Unclassified (1 source) Acute cough; Translations: [Acute cough] Onset: 05-05-2023 Unclassified (1 source) Onset: 05-12-2023 05-12-2023 NEGATED: Highlighted row has not occurred!Residual codes; unclassified (20 sources) Disease Episodic Results Test Name Value Interpretation Reference Range Facil ity Vital Signs Date Time Vital Sign Value Performing Clinician Facility 05-12-2023 10:25-0500 Body height 180.3 cm Ke Villanueva MD Work Phone: [facility] 05-12-2023 10:25-0500 Body mass index (BMI) [Ratio] 32.87 kg/m2 Ke Villanueva MD Work Phone: [facility] 05-12-2023 10:25-0500 Body temperature 97.7 [degF] Ke Villanueva MD Work Phone: [facility] 05-12-2023 10:25-0500 Body weight 106.91 kg Ke Villanueva MD Work Phone: [facility] 05-12-2023 10:25-0500 Diastolic blood pressure 68 mm[Hg] Ke Villanueva MD Work Phone: [facility] 05-12-2023 10:25-0500 Heart rate 69 /min Ke Villanueva MD Work Phone: [facility] 05-12-2023 10:25-0500 Respiratory rate 16 /min Ke Villanueva MD Work Phone: [facility] 05-12-2023 10:25-0500 SaO2% (BldA) [Mass fraction] 93 % Ke Villanueva MD Work Phone: [facility] 05-12-2023 10:25-0500 Systolic blood pressure 146 mm[Hg] Ke Villanueva MD Work Phone: [facility] 05-05-2023 13:22-0500 Diastolic blood pressure 63 mm[Hg] Franny Mesko DO Work Phone: [facility] 05-05-2023 13:22-0500 SaO2% (BldA) [Mass fraction] 93 % Franny Mesko DO Work Phone: [facility] 05-05-2023 13:22-0500 Systolic blood pressure 137 mm[Hg] Franny Mesko DO Work Phone: [facility] 05-05-2023 13:06-0500 Body height 180.3 cm Franny Mesko DO Work Phone: [facility] 05-05-2023 13:06-0500 Body mass index (BMI) [Ratio] 32.99 kg/m2 Franny Mesko DO Work Phone: [facility] 05-05-2023 13:06-0500 Body temperature 97.2 [degF] Franny Mesko DO Work Phone: [facility] 05-05-2023 13:06-0500 Body weight 107.28 kg Franny Mesko DO Work Phone: [facility] 05-05-2023 13:06-0500 Heart rate 83 /min Franny Mesko DO Work Phone: [facility] 05-05-2023 13:06-0500 Respiratory rate 14 /min Franny Mesko DO Work Phone: [facility] 07-09-2022 13:46-0500 Body mass index (BMI) [Ratio] 31.84 kg/m2 Ke Villanueva Work Phone: [facility] Work Phone: 07-09-2022 13:46-0500 Body surface area Derived from formula 2.23 m2 Ke Villanueva Work Phone: [facility] Work Phone: 07-09-2022 13:46-0500 Body temperature 97.5 [degF] Ke Monzoniger Work Phone: [facility] Work Phone: 07-09-2022 13:46-0500 Body weight 103.56 kg Ke Monzoniger Work Phone: [facility] Work Phone: 07-09-2022 13:46-0500 Diastolic blood pressure 69 mm[Hg] Ke Monzoniger Work Phone: [facility] Work Phone: 07-09-2022 13:46-0500 Heart rate 79 /min Ke Monzoniger Work Phone: [facility] Work Phone: 07-09-2022 13:46-0500 Respiratory rate 14 /min Ke Monzoniger Work Phone: [facility] Work Phone: 07-09-2022 13:46-0500 SaO2% (BldA) [Mass fraction] 96 % Ke Villanueva Work Phone: [facility] Work Phone: 07-09-2022 13:46-0500 Systolic blood pressure 120 mm[Hg] Ke Monzoniger Work Phone: [facility] Work Phone: 06-25-2022 10:33-0500 Body mass index (BMI) [Ratio] 32.5 kg/m2 Ke Monzoniger Work Phone: [facility] Work Phone: 06-25-2022 10:33-0500 Body surface area Derived from formula 2.25 m2 Ke Villanueva Work Phone: [facility] Work Phone: 06-25-2022 10:33-0500 Body temperature 96.8 [degF] Ke Monzoniger Work Phone: [facility] Work Phone: 06-25-2022 10:33-0500 Body weight 105.69 kg Ke Villanueva Work Phone: [facility] Work Phone: 06-25-2022 10:33-0500 Diastolic blood pressure 62 mm[Hg] Ke Monzoniger Work Phone: [facility] Work Phone: 06-25-2022 10:33-0500 Heart rate 78 /min Ke Villanueva Work Phone: [facility] Work Phone: 06-25-2022 10:33-0500 Respiratory rate 14 /min Ke Monzoniger Work Phone: [facility] Work Phone: 06-25-2022 10:33-0500 SaO2% (BldA) [Mass fraction] 96 % Ke Villanueva Work Phone: [facility] Work Phone: 06-25-2022 10:33-0500 Systolic blood pressure 100 mm[Hg] Ke Monzoniger Work Phone: [facility] Work Phone: 06-11-2022 14:37-0500 Body mass index (BMI) [Ratio] Medical Reason Not Done Ke Villanueva Work Phone: [facility] Work Phone: 06-11-2022 14:37-0500 Body temperature 96.9 [degF] Ke Monzoniger Work Phone: [facility] Work Phone: 06-11-2022 14:37-0500 Diastolic blood pressure 61 mm[Hg] Ke Monzoniger Work Phone: [facility] Work Phone: 06-11-2022 14:37-0500 Heart rate 80 /min Ke Monzoniger Work Phone: [facility] Work Phone: 06-11-2022 14:37-0500 Respiratory rate 16 /min Ke M Nicolásiger Work Phone: [facility] Work Phone: 06-11-2022 14:37-0500 SaO2% (BldA) [Mass fraction] 96 % Ke Monzoniger Work Phone: [facility] Work Phone: 06-11-2022 14:37-0500 Systolic blood pressure 103 mm[Hg] Ke Monzoniger Work Phone: [facility] Work Phone: 03-19-2022 08:47-0400 Body mass index (BMI) [Ratio] 33.27 kg/m2 Ke Monzoniger Work Phone: [facility] Work Phone: 03-19-2022 08:47-0400 Body surface area Derived from formula 2.27 m2 Ke Villanueva Work Phone: [facility] Work Phone: 03-19-2022 08:47-0400 Body temperature 97.9 [degF] Ke Monzoniger Work Phone: [facility] Work Phone: 03-19-2022 08:47-0400 Body weight 108.21 kg Ke M Nicolásiger Work Phone: [facility] Work Phone: 03-19-2022 08:47-0400 Diastolic blood pressure 56 mm[Hg] Ke M Nicolásiger [facility] Work Phone: 03-19-2022 08:47-0400 Heart rate 76 /min Ke Monzoniger Work Phone: [facility] Work Phone: 03-19-2022 08:47-0400 Respiratory rate 14 /min Ke Monzoniger Work Phone: [facility] Work Phone: 03-19-2022 08:47-0400 SaO2% (BldA) [Mass fraction] 95 % Ke Monzoniger Work Phone: [facility] Work Phone: 03-19-2022 08:47-0400 Systolic blood pressure 133 mm[Hg] Ke Villanueva Work Phone: [facility] Work Phone: 01-28-2022 10:25-0400 Body mass index (BMI) [Ratio] 32.56 kg/m2 Ke Villanueva Work Phone: [facility] Work Phone: 01-28-2022 10:25-0400 Body surface area Derived from formula 2.25 m2 Ke Villanueva Work Phone: [facility] Work Phone: 01-28-2022 10:25-0400 Body temperature 97.7 [degF] Ke Villanueva Work Phone: [facility] Work Phone: 01-28-2022 10:25-0400 Body weight 105.89 kg Ke Nicolásiger Work Phone: [facility] Work Phone: 01-28-2022 10:25-0400 Diastolic blood pressure 69 mm[Hg] Ke M Nicolásiger Work Phone: [facility] Work Phone: 01-28-2022 10:25-0400 Heart rate 72 /min Ke M Nicolásiger Work Phone: [facility] Work Phone: 01-28-2022 10:25-0400 Respiratory rate 14 /min Ke M Nicolásiger Work Phone: [facility] Work Phone: 01-28-2022 10:25-0400 SaO2% (BldA) [Mass fraction] 95 % Ke M Nicolásiger Work Phone: [facility] Work Phone: 01-28-2022 10:25-0400 Systolic blood pressure 139 mm[Hg] Ke M Nicolásiger Work Phone: [facility] Work Phone: 12-12-2021 14:15-0400 Body mass index (BMI) [Ratio] 32.99 kg/m2 Ke M Nicolásiger Work Phone: [facility] Work Phone: 12-12-2021 14:15-0400 Body surface area Derived from formula 2.26 m2 Ke M Nicolásiger Work Phone: [facility] Work Phone: 12-12-2021 14:15-0400 Body temperature 98 [degF] Ke Monzoniger Work Phone: [facility] Work Phone: 12-12-2021 14:15-0400 Body weight 107.28 kg Ke M Nicolásiger Work Phone: [facility] Work Phone: 12-12-2021 14:15-0400 Diastolic blood pressure 68 mm[Hg] Ke M Zeiger Work Phone: [facility] Work Phone: 12-12-2021 14:15-0400 Heart rate 70 /min Ke M Zeiger Work Phone: [facility] Work Phone: 12-12-2021 14:15-0400 Respiratory rate 16 /min Ke Villanueva Work Phone: [facility] Work Phone: 12-12-2021 14:15-0400 SaO2% (BldA) [Mass fraction] 95 % Ke Villanueva Work Phone: [facility] Work Phone: 12-12-2021 14:15-0400 Systolic blood pressure 131 mm[Hg] Ke [facility]va [facility] Work Phone: 11-12-2021 10:02-0400 Body height 180.34 cm Ke Villanueva Work Phone: [facility] Work Phone: 11-12-2021 10:02-0400 Body mass index (BMI) [Ratio] 33.75 kg/m2 Ke Villanueva Work Phone: [facility] Work Phone: 11-12-2021 10:02-0400 Body surface area Derived from formula 2.29 m2 Ke Villanueva Work Phone: [facility] Work Phone: 11-12-2021 10:02-0400 Body temperature 98 [degF] Ke Villanueva Work Phone: [facility] Work Phone: 11-12-2021 10:02-0400 Body weight 109.77 kg Ke Monzoniger Work Phone: [facility] Work Phone: 11-12-2021 10:02-0400 Diastolic blood pressure 76 mm[Hg] Ke Monzoniger Work Phone: [facility] Work Phone: 11-12-2021 10:02-0400 Heart rate 68 /min Ke Monzoniger Work Phone: [facility] Work Phone: 11-12-2021 10:02-0400 Respiratory rate 16 /min Ke Monzoniger Work Phone: [facility] Work Phone: 11-12-2021 10:02-0400 SaO2% (BldA) [Mass fraction] 96 % Ke Monzoniger Work Phone: [facility] Work Phone: 11-12-2021 10:02-0400 Systolic blood pressure 151 mm[Hg] Ke Monzoniger Work Phone: [facility] Work Phone: 08-16-2021 12:51-0500 Body mass index (BMI) [Ratio] 34.98 kg/m2 Ke Monzoniger Work Phone: [facility] Work Phone: 08-16-2021 12:51-0500 Body surface area Derived from formula 2.25 m2 Ke Villanueva Work Phone: [facility] Work Phone: 08-16-2021 12:51-0500 Body temperature 96.9 [degF] Ke Monzoniger Work Phone: [facility] Work Phone: 08-16-2021 12:51-0500 Body weight 109 kg Ke M Nicolásiger Work Phone: [facility] Work Phone: 08-16-2021 12:51-0500 Diastolic blood pressure 67 mm[Hg] Ke M Zeiger Work Phone: [facility] Work Phone: 08-16-2021 12:51-0500 Heart rate 78 /min Ke M Zeiger Work Phone: [facility] Work Phone: 08-16-2021 12:51-0500 Respiratory rate 16 /min Ke M Zeiger Work Phone: [facility] Work Phone: 08-16-2021 12:51-0500 SaO2% (BldA) [Mass fraction] 94 % Ke Villanueva Work Phone: [facility] Work Phone: 08-16-2021 12:51-0500 Systolic blood pressure 117 mm[Hg] Ke Monzoniger Work Phone: [facility] Work Phone: 11-21-2020 11:57-0400 Body mass index (BMI) [Ratio] 34.97 kg/m2 Ke Monzoniger Work Phone: [facility] Work Phone: 11-21-2020 11:57-0400 Body surface area Derived from formula 2.24 m2 Ke Villanueva Work Phone: [facility] Work Phone: 11-21-2020 11:57-0400 Body temperature 97.1 [degF] Ke Villanueva Work Phone: [facility] Work Phone: 11-21-2020 11:57-0400 Body weight 108.98 kg Ke Monzoniger Work Phone: [facility] Work Phone: 11-21-2020 11:57-0400 Diastolic blood pressure 74 mm[Hg] Ke M Nicolásiger Work Phone: [facility] Work Phone: 11-21-2020 11:57-0400 Heart rate 72 /min Ke M Zeiger Work Phone: [facility] Work Phone: 11-21-2020 11:57-0400 Respiratory rate 12 /min Ke M Zeiger Work Phone: [facility] Work Phone: 11-21-2020 11:57-0400 SaO2% (BldA) [Mass fraction] 93 % Ke Joana Kay [facility] Work Phone: 11-21-2020 11:57-0400 Systolic blood pressure 118 mm[Hg] Ke Villanueva [facility] Work Phone: 11-08-2018 11:57-0400 BMI (Body Mass Index) 36.83 kg/m2 Camila Taylor [facility] Work Phone: 11-08-2018 11:57-0400 Body Temperature 98.4 [degF] Camila Taylor [facility] Work Phone: Encounters Encounter Date Encounter Type Care Provider Facility Start: 06-03-2023 Patient encounter procedure Ke Villanueva MD Work Phone: [facility] Work Phone: Start: 05-18-2023 End: 05-19-2023 ambulatory [facility] Start: 05-12-2023 End: 05-13-2023 ambulatory [facility] Start: 05-12-2023 End: 05-13-2023 ambulatory [facility] Start: 05-12-2023 End: 05-13-2023 Encounter for general adult medical examination without abnormal findings [facility] Start: 05-12-2023 End: 05-12-2023 Patient encounter procedure Ke Villanueva MD Work Phone: [facility] Procedures Date Procedure Procedure Detail Performing Clinician Start: 05-18-2023 Comprehensive metabo lic 2000 panel - Serum or Plasma KE VILLANUEVA Start: 05-18-2023 HEPATITIS C ANTIBODY TO KARL VILLANUEVA Start: 05-18-2023 Lipid panel KE Gardner Start: 05-18-2023 TSH WITH REFLEX TO F REE T4 IF ABNORMAL KE VILLANUEVA Start: 05-18-2023 Lipid 1996 panel - S mary or Plasma Ke Villanueva MD Work Phone: Start: 05-18-2023 Thyrotropin [Units/v olume] in Serum or Plasma Ke Villanueva MD Work Phone: Start: 05-12-2023 XR CHEST 2 VIEWS KE WHITE Start: 05-12-2023 XR FOOT RIGHT 3+ VIEWS KE VILLANUEVA Start: 06-11-2022 Thyrotropin [Units/v olume] in Serum or Plasma Franny Clement DO Work Phone: Start: 11-23-2018 Lipid 1996 panel - S mary or Plasma Franny Clement DO Work Phone: Start: 11-08-2018 Comprehensive metabo lic 2000 panel Crystal Claudia Start: 11-08-2018 Creatine kinase total C rystal Claudia Start: 11-08-2018 Lipid panel Crystal Mo sca Start: 2017 End: 03-10-2017 *Hepatic Function Panel Carolyn wilson PA-C Work Phone: Start: 2017 End: 2017 Follow Up Appt 6 months Carolyn wilson PA-C Work Phone: Start: 2017 End: 03-10-2017 Lipid 1996 panel - Serum or Plasma Carolyn Hancock PA-C Work Phone: Start: 2017 End: 2017 PFM Carolyn Hancock PA-C Work Phone: Start: 2017 End: 2017 Follow Up Appt 6 months Carolyn wilson PA-C Work Phone: Start: 2017 End: 2017 PFM Carolyn Hancock PA-C Work Phone: Start: 06-24-2016 End: 06-24-2016 Dietary management education, guidance, and counseling Kamilah Toscano Start: 05-27-2016 End: 06-03-2016 *CBC w/Diff - oncology ONLY Kelin branham [employer] Work Phone: Start: 05-27-2016 End: 06-03-2016 *IMEL SELINA + Prot Elec, Serum 1495 Kelin R Odilon [employer] Work Phone: Start: 05-27-2016 End: 06-12-2016 *MISC - Miscellaneous Lab Test #1 Kelin R Odilon [employer] Work Phone: Start: 05-27-2016 End: 06-03-2016 *UPEP Kelin R Odilon [employer] Work Phone: Start: 05-27-2016 End: 06-03-2016 Immunoglobulin light chains.free panel - Serum Kelin R Odilon [employer] Work Phone: Start: 05-27-2016 End: 06-03-2016 *CBC w/Diff - oncology ONLY Kelin R Schla bach [employer] Work Phone: Start: 05-27-2016 End: 06-03-2016 *IMEL SELINA + Prot Elec, Serum 1495 Kelin R Odilon [employer] Work Phone: Start: 05-27-2016 End: 06-12-2016 *MISC - Miscellaneous Lab Test #1 Kelin R Odilon [employer] Work Phone: Start: 05-27-2016 End: 06-03-2016 *UPEP Kelin R Odilon [employer] Work Phone: Start: 05-27-2016 End: 06-03-2016 Immunoglobulin light chains.free panel - Serum Kelin R Odilon PIPING BLOCKER Work Phone: Start: 01-10-2016 End: 2017 Carotid duplex Jim Zaidi MD Start: 01-10-2016 End: 01-10-2016 Follow Up Appt 1 year Jim Aguilar Start: 01-10-2016 End: 01-10-2016 PFM Jim Zaidi MD Start: 01-10-2016 End: 2017 Carotid duplex Jim Zaidi MD Start: 01-10-2016 End: 01-10-2016 Follow Up Appt 1 year Jim Aguilar Start: 01-10-2016 End: 01-10-2016 PFM Jim Zaidi MD Start: 02-27-2015 End: 02-28-2015 Documentation of current medications Carolyn Hancock PA-C Work Phone: Start: 02-27-2015 End: 02-27-2015 Follow Up Appt 6 months Carolyn wilson PA-C Work Phone: Start: 02-27-2015 End: 02-27-2015 PFM Carolyn Hancock PA-C Work Phone: Start: 02-27-2015 End: 02-28-2015 Documentation of current medications Carolyn Hancock PA-C Work Phone: Start: 02-27-2015 End: 02-27-2015 Follow Up Appt 6 months Carolyn wilson PA-C Work Phone: Start: 02-27-2015 End: 02-27-2015 PFM Carolyn Hancock PA-C Work Phone: Start: 01-04-2015 End: 02-19-2015 Chest x-ray Jim Zaidi MD Start: 01-04-2015 End: 01-05-2015 Documentation of current medications Jim Zaidi MD Start: 01-04-2015 End: 02-19-2015 Echocardiography Jim Zaidi MD Start: 01-04-2015 End: 01-04-2015 Follow Up Appt 6 weeks Jim Zaidi MD Start: 01-04-2015 End: 12-30-2016 Follow Up Appt Other Jim Zaidi MD Start: 01-04-2015 End: 02-05-2015 Follow Up BP Check Jim Zaidi MD Start: 01-04-2015 End: 01-04-2015 MMM Jim Zaidi MD Start: 01-04-2015 End: 02-19-2015 Chest x-ray Jim Zaidi MD Start: 01-04-2015 End: 01-05-2015 Documentation of current medications Jim Zaidi MD Start: 01-04-2015 End: 02-19-2015 Echocardiography Jim Zaidi MD Start: 01-04-2015 End: 01-04-2015 Follow Up Appt 6 weeks Jim Zaidi MD Start: 01-04-2015 End: 12-30-2016 Follow Up Appt Other Jim Zaidi MD Start: 01-04-2015 End: 02-05-2015 Follow Up BP Check Jim Zaidi MD Start: 01-04-2015 End: 01-04-2015 MMM Jim Zaidi MD Start: 12-19-2010 CONVERTED SURGICAL PATHOLOGY Danyel Martha Carbajalruth Work Phone: Appendectomy Camila Taylor Plan of Treatment Date Care Activity Detail Author Start: 03-19-2032 DTaP/Tdap/Td Vaccines (4 - Td or Tdap) DTaP/Tdap/Td Vaccines (4 - Td or Tdap) [facility] Start: 05-18-2028 Lipid panel Lipid Panel [facility] Start: 05-18-2024 Thyroid stimulating hormone measurement TSH Level [facility] Start: 11-24-2023 Lipid panel Lipid Panel [facility] Start: 11-17-2023 End: 11-17-2023 Patient encounter procedure 11/17/2023 10:30 AM EDT Office Visit [facility] [address] [place] [id number] Ke Villanueva MD [address] [place] [address], [address] [place] [address] [facility] Start: 06-11-2023 Thyroid stimulating hormone measurement TSH Level [facility] Start: 05-12-2023 End: 05-12-2023 Patient encounter procedure 05/12/2023 10:10 AM EST Office Visit [facility] [address] [facility] [address] [place] [id number] Ke Villanueva MD [address] [place] [address], [address] [place], [place] [id number] [facility] Start: 05-14-2022 FUV, Provider: Ke Villanueva, Status: Pen, Time: 10:30 AM FUV, Provider: Ke Villanueva, Status: Pen, Time: 10:30 AM -[facility] Work Phone: Start: 02-25-2022 EMG, Provider: EMG-PARMA 2,MG CARD, Status: Pen, Time: 11:15 AM EMG, Provider: EMG-PARMA 2,MG CARD, Status: Pen, Time: 11:15 AM [facility] Work Phone: Start: 01-28-2022 FUV, Provider: Ke Villanueva, Status: Pen, Time: 10:10 AM FUV, Provider: Ke Villanueva, Status: Pen, Time: 10:10 AM -[facility] Work Phone: Start: 07-12-2021 Patient encounter procedure MCRANNUAL, Provider: Ke Villanueva, Status: Pen, Time: 10:00 AM -[facility] Work Phone: Start: 10-02-2020 COVID-19 Vaccine (3 - Pfizer risk series) COVID-19 Vaccine (3 - Pfizer risk series) [facility] Start: 02-07-2020 Influenza vaccination INFLUENZA (#1) [facility] Start: 10-05-2017 End: 10-05-2017 Appointment Appointment [facility] Work Phone: Start: 04-24-2017 End: 03-13-2017 *Hepatic Function Panel *Hepatic Function Panel [facility] Work Phone: Start: 04-24-2017 End: 03-13-2017 Lipid 1996 panel *Lipid Profile CC PCP [facility] Work Phone: Start: 2017 End: 03-10-2017 *Hepatic Function Panel *Hepatic Function Panel [facility] Work Phone: Start: 2017 End: 2017 Follow Up Appt 6 months Follow Up Appt 6 months [facility] Work Phone: Start: 2017 End: 03-10-2017 Lipid 1996 panel *Lipid Profile CC PCP [facility] Work Phone: Start: 2017 End: 2017 PFM PFM [facility] Work Phone: Start: 2017 End: 2017 *Hepatic Function Panel *Hepatic Function Panel [facility] Work Phone: Start: 2017 End: 2017 Follow Up Appt 6 months Follow Up Appt 6 months [facility] Work Phone: Start: 2017 End: 2017 Lipid 1996 panel *Lipid Profile CC PCP [facility] Work Phone: Start: 2017 End: 2017 PFM PFM [facility] Work Phone: Start: 09-15-2016 End: 06-17-2016 *CBC w/Diff - oncology ONLY *CBC w/Diff - oncology ONLY [facility] Work Phone: Start: 09-15-2016 End: 06-17-2016 *CMP Complete Metabolic Panel *CMP Complete Metabolic Panel [facility] Work Phone: Start: 09-15-2016 End: 06-17-2016 *ADRIANA Immunoglobulin G/A/M 1768 *ADRIANA Immunoglobulin G/A/M 1768 [facility] Work Phone: Start: 09-15-2016 End: 06-17-2016 LDH enzyme act/vol *LDH -LDH (Lactate Dehydrogenase) [facility] Work Phone: Start: 09-15-2016 End: 06-17-2016 *CBC w/Diff - oncology ONLY *CBC w/Diff - oncology ONLY [facility] Work Phone: Start: 09-15-2016 End: 06-17-2016 *CMP Complete Metabolic Panel *CMP Complete Metabolic Panel [facility] Work Phone: Start: 09-15-2016 End: 06-17-2016 *ADRIANA Immunoglobulin G/A/M 1768 *ADRIANA Immunoglobulin G/A/M 1768 [facility] Work Phone: Start: 09-15-2016 End: 06-17-2016 LDH enzyme act/vol *LDH -LDH (Lactate Dehydrogenase) [facility] Work Phone: Start: 06-24-2016 End: 06-24-2016 Office outpatient visit 25 minutes [id number] Ofc Vst, Est Level IV [facility] Work Phone: Start: 06-24-2016 End: 06-25-2016 Urology Referral Urology Referral Man Singh, [address] [place] [address], [facility] [address], [place], [address] [facility] Work Phone: Start: 06-24-2016 End: 06-24-2016 Office outpatient visit 25 minutes [id number] Ofc Vst, Est Level IV [facility] Work Phone: Start: 06-24-2016 End: 06-25-2016 Urology Referral Urology Referral Man Singh, [address] [facility], [address], [place], [address] [facility] Work Phone: Start: 06-17-2016 End: 06-17-2016 Us abdominal real time w/image limited US Abdomen, limited [facility] Work Phone: Start: 06-17-2016 End: 06-17-2016 Us abdominal real time w/image limited US Abdomen, limited [facility] Work Phone: Start: 05-27-2016 End: 05-27-2016 *CBC w/Diff - oncology ONLY *CBC w/Diff - oncology ONLY [facility] Work Phone: Start: 05-27-2016 End: 06-03-2016 *IMEL SELINA + Prot Elec, Serum 1495 *IMEL SELINA + Prot Elec, Serum 1495 [facility] Work Phone: Start: 05-27-2016 End: 06-12-2016 *MISC - Miscellaneous Lab Test #1 *MISC - Miscellaneous Lab Test #1 [facility] Work Phone: Start: 05-27-2016 End: 06-03-2016 *UPEP *UPEP [facility] Work Phone: Start: 05-27-2016 End: 06-03-2016 Immunoglobulin light chains.free panel - Serum *KAPLAMBDA - Almena Lamda Light Chains [facility] Work Phone: Start: 05-27-2016 End: 06-03-2016 Office outpatient new 45 minutes [id number] Ofc Vst, New Level IV [facility] Work Phone: Start: 05-27-2016 End: 05-27-2016 *CBC w/Diff - oncology ONLY *CBC w/Diff - oncology ONLY [facility] Work Phone: Start: 05-27-2016 End: 06-03-2016 *IMEL SELINA + Prot Elec, Serum 1495 *IMEL SELINA + Prot Elec, Serum 1495 [facility] Work Phone: Start: 05-27-2016 End: 06-12-2016 *MISC - Miscellaneous Lab Test #1 *MISC - Miscellaneous Lab Test #1 [facility] Work Phone: Start: 05-27-2016 End: 06-03-2016 *UPEP *UPEP [facility] Work Phone: Start: 05-27-2016 End: 06-03-2016 Immunoglobulin light chains.free panel - Serum *KAPLAMBDA - Almena Lamda Light Chains [facility] Work Phone: Start: 05-27-2016 End: 06-03-2016 Office outpatient new 45 minutes [id number] Ofc Vst, New Level IV [facility] Work Phone: Start: 01-10-2016 End: 01-11-2016 Carotid duplex Carotid duplex [facility] Work Phone: Start: 01-10-2016 End: 01-10-2016 Follow Up Appt 1 year Follow Up Appt 1 year [facility] Work Phone: Start: 01-10-2016 End: 01-10-2016 PFM PFM [facility] Work Phone: Start: 01-10-2016 End: 01-11-2016 Carotid duplex Carotid duplex [facility] Work Phone: Start: 01-10-2016 End: 01-10-2016 Follow Up Appt 1 year Follow Up Appt 1 year [facility] Work Phone: Start: 01-10-2016 End: 01-10-2016 PFM PFM [facility] Work Phone: Start: 02-27-2015 End: 02-27-2015 Follow Up Appt 6 months Follow Up Appt 6 months [facility] Work Phone: Start: 02-27-2015 End: 02-27-2015 PFM PFM [facility] Work Phone: Start: 02-27-2015 End: 02-27-2015 Follow Up Appt 6 months Follow Up Appt 6 months [facility] Work Phone: Start: 02-27-2015 End: 02-27-2015 PFM PFM [facility] Work Phone: Start: 01-04-2015 End: 02-19-2015 Chest x-ray X-Ray, Chest, PA & Lateral [facility] Work Phone: Start: 01-04-2015 End: 01-04-2015 Echocardiography Echocardiogram (complete) [facility] Work Phone: Start: 01-04-2015 End: 01-04-2015 Follow Up Appt 6 weeks Follow Up Appt 6 weeks [facility] Work Phone: Start: 01-04-2015 End: 12-30-2016 Follow Up Appt Other Follow Up Appt Other [facility] Work Phone: Start: 01-04-2015 End: 02-05-2015 Follow Up BP Check Follow Up BP Check [facility] Work Phone: Start: 01-04-2015 End: 01-04-2015 MMM MMM [facility] Work Phone: Start: 01-04-2015 End: 02-19-2015 Chest x-ray X-Ray, Chest, PA & Lateral [facility] Work Phone: Start: 01-04-2015 End: 01-04-2015 Echocardiography Echocardiogram (complete) [facility] Work Phone: Start: 01-04-2015 End: 01-04-2015 Follow Up Appt 6 weeks Follow Up Appt 6 weeks [facility] Work Phone: Start: 01-04-2015 End: 12-30-2016 Follow Up Appt Other Follow Up Appt Other [facility] Work Phone: Start: 01-04-2015 End: 02-05-2015 Follow Up BP Check Follow Up BP Check [facility] Work Phone: Start: 01-04-2015 End: 01-04-2015 MMM MMM [facility] Work Phone: Start: 2011 ADVANCE DIRECTIVE DISCUSSION ADVANCE DIRECTIVE DISCUSSION [facility] Start: 09-08-2010 DIABETES SCREEN DIABETES SCREEN [facility] Start: 02-11-1996 Screening for malignant neoplasm of lung Lung Cancer Screening [facility] Start: 02-11-1996 SHINGRIX VACCINE (1 of 2) SHINGRIX VACCINE (1 of 2) [facility] Start: 02-11-1996 Tuberculosis screening COLORECTAL CANCER SCREENING,SEE MODIFIER [facility] Start: 1981 LIPID SCREEN LIPID SCREEN [facility] Start: 1965 Urine microalbumin profile DTAP,TDAP,TD (1 - Tdap) [facility] Start: 1965 Zoster Vaccines (1 of 2) Zoster Vaccines (1 of 2) [facility] Start: 02-11-1964 ANNUAL PCP TEAM CHRONIC DISEASE VISIT ANNUAL PCP TEAM CHRONIC DISEASE VISIT [facility] Start: 02-11-1964 BP CONTROLLED (<130/80) BP CONTROLLED (<130/80) [facility] Start: 02-11-1964 HEPATITIS C SCREENING HEPATITIS C SCREENING [facility] Start: 02-11-1964 Hepatitis C screening Hepatitis C Screening [facility] Start: 1946 Medicare Annual Wellness Visit Medicare Annual Wellness Visit (AWV) [facility] Immunizations Immunization Date Immunization Notes Care Provider Fa cility 03-07-2023 influenza, seasonal, injectable Franny Clement DO Work Phone: [facility] Work Phone: 04-02-2022 Flu vaccine, quadrivalent, high-dose, preservative free, age 65y+ (FLUZONE) Franny Clement DO Work Phone: [facility] Work Phone: 04-02-2022 influenza virus vaccine, unspecified formulation Ke Villanueva Work Phone: [facility] Work Phone: Payers Date Payer Category Payer Medicare [id number] 2016 Unknown 2011 Medicare [id number] 2011 Medicare MEDICARE MEDICAR E PART A AND B [id number] 2011-Present [address] [place] [address] [id number] 2006 Private Health Insurance [id number] 1946 Unknown [id number] [id number] .278 1946 Unknown [id number] [id number] .356 1946 Unknown [id number] 2.16.840.1.857185.3.579.2 .356 1946 Unknown [id number] 2.16.840.1.937408.3.579.2 .356 1946 Unknown [id number] 2.16.840.1.625710.3.579.2 .356 1946 Unknown [id number] 2.16.840.1.270224.3.579.2 .356 1946 Unknown [id number] 2.16.840.1.061997.3.579.2 .356 1946 Unknown [id number] 2.16.840.1.800865.3.579.2 .356 1946 Unknown [id number] 2.16.840.1.407078.3.579.2 .356 1946 Unknown [id number] 2.16.840.1.451009.3.579.2 .356 1946 Unknown [id number] 2.16.840.1.185841.3.579.2 .1243 1946 Unknown [id number] 2.16.840.1.371475.3.579.2 .1243 1946 Unknown [id number] 2.16.840.1.151444.3.579.2 .1243 1946 Unknown [id number] 2.16.840.1.883239.3.579.2 .1243 1946 Unknown [id number] 2.16.840.1.286446.3.579.2 .1244 1946 Unknown [id number] 2.16.840.1.255998.3.579.2 .1245 1946 Unknown [id number] [id number] .1245 Social History Date Type Detail Facility Start: 09-11-2008 Tobacco smoking stat us [facility] Current every day smoker [facility] End: 06-08-2014 History of tobacco use Cigarette Smoker [facility] Start: 09-11-2008 End: 05-12-2023 Cigarettes smoked current (pack per day) - Reported [facility] Functional Status Date Assessment Result Facility NEGATED: Highlighted row Functional performance Functional status health issues are not documented Disease [facility] Work Phone: Mental Status Date Assessment Result Facility NEGATED: Highlighted row Cognitive function [Interpretation] Cognitive status health issues are not documented Disease [facility] Work Phone: Clinical Notes 07-01-2010 to 06-03-2023 Assessment & Plan Note - Ke Villanueva MD - 06/03/2023 8:50 AM ESTAssessment & Plan Note - Ke Villanueva MD - 06/03/2023 8:50 AM ESTTokarl Villanueva MD - 05/12/2023 10:10 AM EST Note Date & Type Note Facility 06-03-2023 Evaluation + Plan note Associated Problem(s): Chronic lymphocytic leukemia (CMS/HCC) Observation - no active treatment recommended [facility] Work Phone: 06-03-2023 Miscellaneous Notes Associated Problem(s): Chronic lymphocytic leukemia (CMS/HCC) Observation - no active treatment recommended Associated Problem(s): Hypokalemia Due to furosemide side effect Check metabolic panel to measure level Continue potassium 20meq daily Associated Problem(s): Acquired hypothyroidism Check TSH Continue levothyroxine 75mcg daily Associated Problem(s): Pre-diabetes A1c 5.9% 2021 Check fasting glucose Associated Problem(s): Persistent atrial fibrillation (CMS/HCC) Cardiology - Dr Zaidi @ [facility] Denies symptoms Tiksosyn for rhythm control Eliquis for stroke risk reduction No medication side effects Associated Problem(s): Primary hypertension Elevated today Check home BP over next 2 weeks Contact if average >130/80 Associated Problem(s): Mixed hyperlipidemia Lab Results Component Value Date CHOL 204 (H) 11/23/2018 Lab Results Component Value Date HDL 35.0 (A) 11/23/2018 No results found for: LDLCALC Lab Results Component Value Date TRIG 239 (H) 11/23/2018 No components found for: CHOLHDL Atorvastatin dose reduced to 20mg 3 days per week to reduce side effects of joint and muscle pains documented in this encounter [facility] Work Phone: 05-14-2023 Evaluation + Plan note Associated Problem(s): Hypokalemia Due to furosemide side effect Check metabolic panel to measure level Continue potassium 20meq daily [facility] Work Phone: 05-14-2023 Evaluation + Plan note Associated Problem(s): Acquired hypothyroidism Check TSH Continue levothyroxine 75mcg daily [facility] Work Phone: 05-14-2023 Evaluation + Plan note Associated Problem(s): Pre-diabetes A1c 5.9% 2021 Check fasting glucose [facility] Work Phone: 05-14-2023 Evaluation + Plan note Associated Problem(s): Persistent atrial fibrillation (CMS/HCC) Cardiology - Dr Zaidi @ [facility] Denies symptoms Tiksosyn for rhythm control Eliquis for stroke risk reduction No medication side effects [facility] Work Phone: 05-14-2023 Evaluation + Plan note Associated Problem(s): Primary hypertension Elevated today Check home BP over next 2 weeks Contact if average >130/80 [facility] Work Phone: 05-12-2023 Evaluation + Plan note Associated Problem(s): Mixed hyperlipidemia Lab Results Component Value Date CHOL 204 (H) 11/23/2018 Lab Results Component Value Date HDL 35.0 (A) 11/23/2018 No results found for: LDLCALC Lab Results Component Value Date TRIG 239 (H) 11/23/2018 No components found for: CHOLHDL Atorvastatin dose reduced to 20mg 3 days per week to reduce side effects of joint and muscle pains [facility] 05-12-2023 History of Presen t illness Narrative Subjective Reason for Visit: Royal Rae is an 78 y.o. male here for a Medicare Wellness visit. 05/05/2023 Dr. Clement prescribed him Augmentin for wheezing and cough. Today is day 7 of taking the antibiotic. He is also taking Flonase to help with congestion. 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 He recently hurt his left knee. He continued going about his daily activities but later on in the evening he could barely walk. He was seen by a doctor and told nothing was broken. He has received his high dose flu shot and he has not kept up to date with Covid vaccines. Patient Care Team: Ke Villanueva MD as PCP - General Ke Villanueva MD as PCP - MSSP ACO Attributed Provider Review of Systems HENT: Positive for congestion and sinus pressure. Respiratory: Positive for cough and wheezing. Musculoskeletal: Right foot pain Objective Vitals: BP 146/68 (BP Location: Left arm, Patient Position: Sitting, BP Cuff Size: Large adult) Pulse 69 Temp 36.5 C (97.7 F) Resp 16 Ht 1.803 m (5' 11 ) Wt 107 kg (235 lb 11.2 oz) SpO2 93% BMI 32.87 kg/m Physical Exam Constitutional: Appearance: Normal appearance. Cardiovascular: Rate and Rhythm: Normal rate and regular rhythm. Pulses: Normal pulses. Heart sounds: Normal heart sounds. Pulmonary: Breath sounds: Wheezing present. Neurological: Mental Status: He is alert. Assessment/Plan Problem List Items Addressed This Visit BPH associated with nocturia Chronic lymphocytic leukemia (CMS/HCC) Overview Flow cytometry on 06/04/2016 showed monoclonal B cell consistent with CLL. US on 06/19/2016 showed mild splenomegaly and Left Kidney mass. CT on 07/02/2016 showed bilateral axillary and mediastinal adenopathy with Left Kidney mass. 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 IgG level on 09/15/2016 was 518. He was found to have doubling of Lymphocytes. CT c/a/p on 03/26/2018 showed increase in axillary, retroperitoneal node, and pelvic nodes with mild splenomegaly. PET/CT on 04/05/2018 showed multiple hypermetabolic lymph nodes in neck, bilateral axillae, retroperitoneal, pelvis, R Commenced with cycle 1 bendamustine + Rituxan on 06/23/2018. Received C2 on 07/21/2018, C3 on 08/18/18. Interim PET/CT after 3 cycles showed complete metabolic response to treatment. Went on to receive cycle 4 BR on 09/14/18. He had complete hematologic remission. He is on observation, Current Assessment & Plan Observation - no active treatment recommended Pre-diabetes Current Assessment & Plan A1c 5.9% 2021 Check fasting glucose Mixed hyperlipidemia Current Assessment & Plan Lab Results Component Value Date CHOL 204 (H) 11/23/2018 Lab Results Component Value Date HDL 35.0 (A) 11/23/2018 No results found for: LDLCALC Lab Results Component Value Date TRIG 239 (H) 11/23/2018 No components found for: CHOLHDL Atorvastatin dose reduced to 20mg 3 days per week to reduce side effects of joint and muscle pains Relevant Orders Lipid Panel (Completed) Comprehensive metabolic panel (Completed) Primary hypertension Current Assessment & Plan Elevated today Check home BP over next 2 weeks Contact if average >130/80 Relevant Orders Comprehensive metabolic panel (Completed) Acquired hypothyroidism Current Assessment & Plan Check TSH Continue levothyroxine 75mcg daily YURI (obstructive sleep apnea) Persistent atrial fibrillation (CMS/HCC) Overview history of atrial fibrillation, s/p synchronized biphasic DC cardioversion on 12/21/2018, 02/2020 and 08/07/2020, Current Assessment & Plan Cardiology - Dr Zaidi @ [facility] Denies symptoms Tiksosyn for rhythm control Eliquis for stroke risk reduction No medication side effects Right foot pain Relevant Orders XR foot right 3+ views (Completed) Medicare annual wellness visit, subsequent - Primary Other Visit Diagnoses Screening for multiple conditions Relevant Orders Comprehensive metabolic panel (Completed) Need for hepatitis C screening test Relevant Orders Hepatitis C antibody (Completed) Hypothyroidism, unspecified type Relevant Orders TSH with reflex to Free T4 if abnormal (Completed) Chest congestion Relevant Orders XR chest 2 views (Completed) Scribe Attestation By signing my name below, I, Janis Taobr , Scribjosesito attest that this documentation has been prepared under the direction and in the presence of Ke Villanueva MD. documented in this encounter [facility] Work Phone: 11-28-2023 History of Presen t illness Narrative Subjective Patient ID: Royal Rae is a 78 y.o. male who presents for URI (Sneezing, coughing, x 1 week /Recently went to [place] /Already had flu shot ). HPI X Thursday Sick contact- Patient has leukemia No fever, body aches Cough is productive +nasal congestion-clear Taking claritin No covid testing Drove from +h/o COPD Review of Systems See HPI Objective BP 137/63 (BP Location: Left arm, Patient Position: Sitting, BP Cuff Size: Large adult) Pulse 83 Temp 36.2 C (97.2 F) (Temporal) Resp 14 Ht 1.803 m (5' 11 ) Wt 107 kg (236 lb 8 oz) SpO2 93% BMI 32.99 kg/m Physical Exam Constitutional: Well developed, well nourished, alert and in no acute distress. Head and Face: NC/AT Eyes: Normal external exam. ENT: External inspection of ears normal, tympanic membranes visualized and normal. Nasal mucosa and turbinates swollen and erythematous, clear nasal discharge present. Oral mucosa moist, oropharynx clear without tonsillar exudate or erythema. Wears bilateral hearing aids. Neck: Supple. No cervical lymphadenopathy Cardiovascular: Regular rate and rhythm, normal S1 and S2, no murmurs, gallops, or rubs. Pulmonary: No respiratory distress, +left upper/lower wheezes, but no rhonchi, rales. Skin: Warm, well perfused, normal skin turgor and color. Neurologic: Cranial nerves II-XII grossly intact. Assessment/Plan UPPER RESPIRATORY INFECTION PLAN: Fill antibiotic - Consider trial of daily probiotic to help minimize GI side effects- Align, Culturelle, DanActive, Florastor are recommended. Drink at least 6-8 glasses of water daily to thin secretions. Mucinex can be used if secretions remain thick. A teaspoon of honey every 4 hours as needed for cough has been shown to reduce cough as well or better than [id number] cough suppressants. Delsym or Robitussin are recommended to stop cough. Cough drops can also be helpful. For nasal congestion, please use Sebastian Med Sinus Rinse at least once daily to rinse out your sinuses. You can also try Flonase nasal spray over the counter - 1-2 sprays in each nostril daily. You can also consider Sudafed or Phenylephrine for nasal congestion but avoid if have hypertension and be aware can stimulate and cause problems sleeping. Do not use for more than 5 days. Afrin decongestant nasal spray (oxymetazoline) can also be used for 2-3 days only. For drainage problems, try Gunjan, Claritin or Zyrtec. For sore throat, try honey in tea, Chloraseptic, Cepacol throat lozenges, and salt water gargles. Fever or aches can be helped by taking acetaminophen (Tylenol) every four hours as needed, or ibuprofen (Motrin, Advil) or naproxen (Aleve) as directed if you are able. Maximum dosing of ibuprofen is 800 mg every 8 hours and maximum dose of tylenol is 1,000 mg every 8 hours - do not use for longer than 1 week unless directed by your doctor. If you should develop a fever and worsening cough or nasal secretions with consistent yellow or green phlegm, please contact us. documented in this encounter [facility] Work Phone: 04-02-2022 History of Presen t illness Narrative Royal is here to discuss having pain all over.Flu shot was done 04/02/2022OVID shot- PfizerTdap was done 03/19/2022een Dr. Clement on 06/11/2021Having terrible diarrheaStill having pain in the knees and joints.Feet have started to hurt himAlso having a stiff and sore neck.77 y/o male here today with multiple complaints: multiple joint pain and diarrhea. He was seen by Dr. Clement on 06/11/22 for L ankle pain and had x-ray of the ankle which showed mild arthritis of ankle and some soft tissue swelling also noted. In addition to the ankle, he reports feeling pain and swelling in knees and left hip. Onset shortly after diarrhea started on 06/08/22. He also reports pain in his Achilles. Denies muscular pain. He has been treating with Aleve and Tylenol.He was seen by Dr. Baker for diarrhea. Diarrhea has been ongoing since 06/08/22. He has been having diarrhea about 1-2 times per day. He also reports significant gassiness. He was started on probiotic and Metamucil by Dr. Baker. The stool has formed up and less watery since starting these treatments, but his stools are not fully formed. He had stool sample test which showed white and red blood cells present, suggesting possible infection or inflammatory etiology. C-diff was negative. He also had elevated CRP.CLL: Patient had elevated WBC count (47.5) per labs on 06/11/22. Patient states he had another set of blood work since then and that the WBC count went down. He states he has been having night sweats for past 4-5 days. He has his next appt with oncologist in October. -[facility] Work Phone: 04-02-2022 History of Presen t illness Narrative Royal is here for to with his today to discuss inflammation not better.Flu shot was done 04/02/2022OVID shot- PfizerTdap was done 03/19/2022Having trouble with his knees still, hard time binding them.Both knees feel stiff.Taking Aleve and Tylenol and using ice and heat.Pain seem to be in the back on his legs.Neck is also bothering him as well77 y/o male here today with his regarding follow up for diarrhea and multiple joint pain. He was seen by me on 06/25/22 with pain in ankle, knees, and left hip. The joint pain started shortly after diarrhea started on 06/08/22. He states the joints are still just as painful and stiff. He tried using Voltaren, Aleve, and Tylenol with no relief. It does not seem to be worse during the morning vs evening. Reports stiffness in bilateral knees -- can only achieve about 45 degrees flexion. He states right knee is slightly more stiff than the left knee. No swelling, redness, or warmth to the knees. Pain to the RLE in the askew and LLE lateral aspect of ankle. He also reports he has neck stiffness and soreness with rotation.Diarrhea: Patient states the diarrhea has improved. The stools are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 cancer: Mother Status:Active Family history of Alzheimer' s disease: Mother(V17.2, Z82.0) Status:Active Family history of emphysema: Father(V17.6, Z82.5) Status:Active Family history of gastrointe stinal disorder: Sister(V18.59, Z83.79) Comments:Sister 70 y/o GI pr oblems; Status:Active : Brother Comments: at 29 y/o lung cancer and cirrhosis of liver; Status:Active Family history of hepatic ci rrhosis: Brother(V18.59, Z83.79) Status:Active Family history of lung cance r: Brother(V16.1, Z80.1) Status:Active Family history of malignant neoplasm of prostate: Sibling(V16.42, Z80.42) Status:Active Advance Directives No Advanced Directives Records FoundNo Advanced Directives Records FoundNo Advanced Directives Records FoundNo Advanced Directives Records FoundNo Advanced Directives Records FoundNo Advanced Directives Records FoundNo Advanced Directives Records Found Chief Complaint Follow up medicationsPT is being seen for a sinus pressure, congestion, runny nose, x 8-10 day* AMWV * QIS: Falls Tingling/Numbness in fingersFUV ThyroidLeft ankle woundDiscuss pain all over Inflammation is not better Reason for Referral Specialty Diagnoses / Procedures Referred By Nicki rivers Referred To Contact Radiology Diagnoses Chest congestion Procedures XR chest 2 views Ke Villanueva MD [address] [facility] [place] [address] Referral ID Status Reason Start Date Expiration Date Visits Requested Visits Authorized [id number] Authorized Perform Procedure 05/12/2023 05/11/2024 1 1 Specialty Diagnoses / Procedures Referred By Nicki t Referred To Contact Radiology Diagnoses Right foot pain Procedures XR foot right 3+ views Ke Villanueva MD [address] [facility] [place] [address] Referral ID Status Reason Start Date Expiration Date Visits Requested Visits Authorized [id number] Authorized Perform Procedure 05/12/2023 05/11/2024 1 1 Additional Source Comments (unrecognized sect ion and content) No Status Records FoundNo Status Records FoundNo Status Records FoundNo Status Records FoundNo Status Records FoundNo Status Records FoundNo Status Records Found INFORMATION SOURCE (unrecogn ized section and content) DATE CREATED AUTHOR AUTHOR'S ORGANIZ ATION 12/04/2018 [facility] DATE CREATED AUTHOR AUTHOR'S ORGANIZ ATION 07/06/2021 [facility] DATE CREATED AUTHOR AUTHOR'S ORGANIZ ATION 07/10/2022 [facility] DATE CREATED AUTHOR AUTHOR'S ORGANIZ ATION 07/10/2022 [facility] DATE CREATED AUTHOR AUTHOR'S ORGANIZ ATION 05/18/2023 [facility] DATE CREATED AUTHOR AUTHOR'S ORGANIZ ATION 05/24/2023 [facility] Source Comments (unrecognize d section and content) In the event this informatio n is protected by the Federal Confidentiality of Alcohol and Drug Abuse Patient Records regulations: The Federal rules restrict any use of the information to criminally investigate or prosecute any alcohol or drug abuse patient.[facility] Reason for Visit (unrecogniz ed section and content) Reason Comments Medicare Annual Wellness Visit Subsequen t Colon:10/24/2021Tdap:03/19/2022Flu:03/07/20 23 Follow-up 6 mo fuvPt would lik e to discuss:Rough spots on scalpNasal congestion (yellow/thick) Hypothyroidism Hypertension Hyperlipidemia Care Teams (unrecognized sec tion and content) 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 This clinical summary was aggregated from multiple sources. Caution should be exercised in using it in the provision of clinical care. This summary normalizes information from multiple sources, and as a consequence, information in this document may materially change the coding, format and clinical context of patient data. In addition, data may be omitted in some cases. CLINICAL DECISIONS SHOULD BE BASED ON THE PRIMARY CLINICAL RECORDS. [employer] provides no warranty or guarantee of the accuracy or completeness of information in this document.
[2023-07-14 11:35] LABS: PSA,Total- Diagnostic 3.23 ng/mL (0.0-4.0)
== END | disposition home or self-care (01) ==
LOC: LAB 09:59
PROVIDERS: PCP Family Medicine; Referring Provider Nurse Practitioner; Visit Provider Nurse Practitioner
DX: R97.20 Elevated prostate specific antigen [PSA] (principal)
CPT/HCPCS: 36415; 84153

== ENCOUNTER → 2023-07-15 | Outpatient (CLI) | payer MEDICARE, BC, SELFPAY ==
--- NOTE | 2023-07-15 14:53 | CT_ITS ---
STUDY: CT ABDOMEN AND PELVIS WITH CONTRAST REASON FOR EXAM: Male, 78 years old. ABD PAIN/HEMATURIA. Prior partial resection of the left kidney. RADIATION DOSAGE (If Supplied By Facility): CTDIvol = ( 19.27 ) mGy, DLP = ( 2149.70 ) mGycm TECHNIQUE: Transaxial images were obtained from the dome of the diaphragm to the symphysis pubis without oral contrast. IV 100mL Isovue-300 was administered. Sagittal and coronal images were reconstructed. Individualized dose optimization techniques were used for this CT. COMPARISON: Comparison is made with prior study dated July 22, 2022. FINDINGS: Calcified granuloma at the right lung base. Minimal degree of linear scarring and/or atelectasis at the left lung base. Coronary artery calcification Normal liver. Normal gallbladder and extrahepatic biliary system. Mild splenomegaly. There is diffuse atrophy of the pancreas. Normal bilateral adrenal glands. Normal right kidney. Normal left kidney. Normal visualized stomach. Normal small intestine. Prior partial resection of the sigmoid colon. The appendix is visualized and appears normal. There is diffuse atherosclerotic calcification of the abdominal aorta and its major visceral branches, without a demonstrated aneurysm. Normal inferior vena cava. Multiple retroperitoneal lymphadenopathy. Stable multiple small lymph nodes in the root of the mesentery. Enlarged prostate with calcifications. Small volume urinary bladder. Small volume urinary bladder. There is enlargement of the prostate gland. The prostate measures 4.9 cm x 5.4 cm. Calcification is seen within it. Enlarged pelvic lymph nodes worse on the left side. The lymph nodes have increased in size as compared to prior study. There is a small left paracentral hernia containing a nondilated small bowel loop just lateral to the umbilicus. There are degenerative changes of the visualized lumbar spine. CT/Abdomen/Pelvis WITH Contrast IMPRESSION: Increased size of the pelvic and retroperitoneal lymph nodes. Electronically Signed: Chase Romero MD at 15:42 EST ,
[2023-07-15 15:32] LABS: CREATININE FINGERSTICK 1.2 mg/dL (0.70-1.30); EGFR FINGERSTICK > 60.0000 mL/min (>60)
== END | disposition home or self-care (01) ==
LOC: CT 14:46
PROVIDERS: PCP Family Medicine; Referring Provider Urology; Visit Provider Urology
DX: R31.29 Other microscopic hematuria (principal); R10.84 Generalized abdominal pain
CPT/HCPCS: 74177; Q9967

== ENCOUNTER → 2023-12-30 | Outpatient (CLI) | payer MEDICARE, BC, SELFPAY ==
--- NOTE | 2023-12-30 13:21 | CT_ITS ---
HISTORY: Nicotine dependence, history of leukemia. TECHNIQUE: Helically acquired images were obtained of the chest without contrast. A radiation dose optimization technique was used for this scan. 867 images. COMPARISON: PET-CT 08/11/2023, 08/30/2018. FINDINGS: LARGE AIRWAYS: Patent. LUNGS: Stable 1.4 cm left upper lobe groundglass nodule. Small right lower lobe calcified granuloma again seen. No new suspicious nodule or acute alveolar consolidation. PLEURA: No pneumothorax or significant pleural effusion. HEART/PERICARDIUM: Heart within normal limits in size with coronary artery calcification. No pericardial effusion. VESSELS: Thoracic aorta nondilated. Atherosclerosis present. Right chest wall port with catheter tip in the superior vena cava. MEDIASTINUM/GARETT: Multiple enlarged mediastinal lymph nodes with a reference lymph node in the right lower paratracheal region measuring 2.4 cm, previously 3.3 cm. 2.5 cm short axis subcarinal lymph node, previously 2.8 cm. Left axillary lymph nodes measuring up to 1.5 cm long axis, previously 4.4 cm. Mild increased size of prevascular lymphadenopathy. Small calcified right hilar lymph node. Right axillary lymph node nodes measuring up to 2.3 cm long axis, previously 4.1 cm. UPPER ABDOMEN: Chronic splenomegaly. BONES: Degenerative change. CT/Low Dose CT Lung Screening IMPRESSION: No significant interval change in size of 1.4 cm left upper lobe groundglass nodule. Lung-RADS category 2: Continue annual screening with low dose CT. Marked interval decrease in bilateral axillary lymphadenopathy. Mildly decreased mediastinal lymphadenopathy. Recommend continued follow-up for known diagnosis of leukemia. Electronically Signed: Krystle Hernandez MD at 10:10 EDT ,
== END | disposition home or self-care (01) ==
LOC: CT 13:20
PROVIDERS: PCP Family Medicine; Referring Provider Family Medicine; Visit Provider Family Medicine
DX: Z12.2 Encounter for screening for malignant neoplasm of respiratory organs (principal); Z87.891 Personal history of nicotine dependence
CPT/HCPCS: 71271

== ENCOUNTER 2024-03-17 17:33 | Emergency (ER) | payer MEDICARE, BC, SELFPAY ==
[2024-03-17 17:33] VITALS: BP 174/88; PULSE 88; RESP 18; TEMP 36.9; O2SAT 99; BMI 33.7
--- NOTE | 2024-03-17 17:42 | EDS_ITS ---
HPI History of Present Illness HPI Narrative: 71-year-old male history of A-fib, CLL. [place] and [place] lacerated the right lower leg. No fall no other injuries. This occurred within the last hour. Believes his tetanus is up-to-date about 3 years ago. Chief Complaint: Laceration Informant: patient and spouse/S.O. Occured/Mechanism Mechanism/Context: Yes injury Onset/Context/Timing Onset: Today Context: Sudden Onset Timing: Continuous Current Severity: Mild Maximum Severity: Mild Associated Symptoms Associated Symptoms: Negative for Parasthesia, Weakness or Loss of Funtion Narrative Narrative: 79-year-old male laceration right lower leg. On Eliquis. Tetanus Immunization: <5 years Prior similar symptoms: No Recent Illness/Hospitalization: No PFSH [facility] Medical History Bruit of left carotid artery Atherosclerosis of [place] coronary artery of [place] heart without angina pectoris Atrial fibrillation Pure hypercholesterolemia Essential (primary) hypertension Skin cancer of face Bruising Edema of right lower extremity Chest discomfort Renal mass, left CLL (chronic lymphocytic leukemia) Depression Diverticulitis YURI (obstructive sleep apnea) Right carotid bruit Renal mass COPD (chronic obstructive pulmonary disease) Chronic lymphocytic leukemia (CLL), B-cell Home Medications ?Medication ?Instructions ?Recorded ?Last Taken ?Type loratadine 10 mg tablet 10 mg PO DAILY allergy 09/03/16 01/15/21 History HANDICAP Placard #1 ea 04/11/19 Unknown Rx furosemide 20 mg tablet 20 mg PO DAILY extra fluid 01/31/22 Unknown History levothyroxine 75 mcg tablet 75 mcg PO DAILY 01/31/22 Unknown History albuterol sulfate 90 mcg/actuation 1 - 2 puff inhalation Q4H PRN PRN 02/04/23 Unknown Rx aerosol inhaler copd #6.7 grams atorvastatin 40 mg tablet 20 mg PO .3xweek lower cholesterol 02/04/23 Unknown History vitamins A,C,K-uhjz-yznbvb 2,148 2 tab PO BID 05/07/23 Unknown History mcg-113 mg-45 mg-17.4 mg tablet (PreserVision AREDS) allopurinol 300 mg tablet 300 mg PO DAILY #36 TABLETS 08/25/23 Unknown Rx losartan 50 mg tablet 50 mg PO BID BP #180 tabs 09/18/23 Unknown Rx spironolactone 25 mg tablet 25 mg PO DAILY #30 tabs 10/08/23 Unknown Rx lidocaine-prilocaine 2.5 %-2.5 % 1 applic topical ONCE PRN port 11/05/23 Unknown Rx topical cream access 30 days #30 grams amlodipine 5 mg tablet 5 mg PO BID BP #180 tabs 01/13/24 Unknown Rx apixaban 5 mg tablet (Eliquis) 5 mg PO BID blood thinner #180 tabs 01/13/24 Unknown Rx dofetilide 250 mcg capsule 250 mcg PO Q12 #180 caps 03/17/24 Unknown Rx Allergy/AdvReac Type Severity Reaction Status Date / Time No Known Allergies Allergy Verified 03/17/24 17:33 Family History Mother Throat cancer Father Heart disease Brother Hypertension Sister Thyroid disorder Son Diabetes Surgical History History of carpal tunnel surgery of left wrist History of cardioversion (~08/07/20) kidney tumor removed History of colectomy RIGHT FOREARM SCREWS AND PLATES History of arthroscopy of both knees CYST REMOVAL FROM BACK History of tonsillectomy Previous back surgery Social History Smoking Status: Former smoker how long ago did patient quit smokin years ago alcohol intake: current alcohol intake frequency: 0-2 drinks per day substance use type: does not use caffeine: Yes Type: coffee Number of servings: 1 ROS ROS ED ROS Narrative Denies recent illness. Constitutional Constitutional ED: Denies chills or fever(s) Eyes Eyes: Denies blurry vision ENT ENT ED: Denies ear pain Cardiovascular Cardiovascular: Denies chest pain Respiratory/Chest Respiratory/Chest: Denies cough or dyspnea Gastrointestinal Gastrointestinal: Denies abdominal pain Genitourinary Genitourinary ED: Denies dysuria Musculoskeletal Musculoskeletal: Denies arthralgias Neurologic Neurologic: Denies headache(s) Psychiatric Psychiatric: Denies anxiety Endocrine Endocrinology: Denies polydipsia Hematologic/Lymphatic Hematologic/Lymphatic: Reports easy bleeding and other Details: On the blood thinner Eliquis. Allergic/Immunologic Allergic/Immunologic ED: Denies mouth swelling, tongue swelling or urticaria EXAM Physical Exam Narrative Exam Narrative: Well-appearing 79-year-old male. Vital signs stable afebrile. H EENT exam unremarkable. Neck nontender. Lungs clear. Heart regular rate and rhythm rate about 90. Chest wall and ribs nontender. Abdomen soft nontender. Moving all 4 extremities. Dorsi plantarflexion intact. Normal DP pulse in the right leg. Right lower leg anterior portion midportion he has about a 1 to 2 inch linear laceration. Oozing of blood. No pulsatile bleeding. No hematoma. Involves the skin and subcu tissue. He has full flexion extension of both lower extremities. 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 Back nontender. He is awake and alert. No focal motor deficits. Answering questions and following commands. Const Vital Signs: 03/17/24 17:33 Temperature 98.5 F Temperature Source Oral Pulse Rate 88 Respiratory Rate 18 Blood Pressure 174/88 H Blood Pressure Mean 116 Pulse Ox 99 Oxygen Delivery Method Room Air Positive well nourished and well developed; Negative for cachectic, contractures or unkempt General Appearance ED: well developed and NAD; Negative for unkempt, cachectic or contractures Nutritional Appearance: Negative for cachectic HEENT Reports moist mucous membranes normocephalic and atraumatic; Negative for trauma or tenderness Eyes PERRL Neck full ROM and supple Thyroid: Negative for tender Lymph Lymphatic: Negative for other Chest Wall inspection of chest normal and palpation of chest normal Resp normal respiratory effort, no retractions and clear to auscultation bilaterally Cardio regular rate, regular rhythm, S1 normal heart sound, S2 normal heart sound and no murmurs GI non-tender, non-distended and no masses Palpation: soft; Negative for tender, guarding or rebound tenderness present Back/Spine no CVA tenderness Extremity normal to inspection and full ROM Extremity Narrative: Right lower leg anterior mid askew vertical laceration 1 to 2 inches in length. Venous bleeding. No pulsatile bleeding. No foreign body or infection. Neuro oriented x3, CN's II-XII intact bilaterally and moves all extremities Sensorium / Orientation: alert, oriented to person, oriented to place and oriented to time; Negative for confused, lethargic or stuporous Motor Exam: strength 5/5 throughout Psych mental status grossly normal Appearance: Negative for unkempt Speech: No other Mood & Affect: Negative for anxious Skin no wounds Lesions: no lesions Rashes: no rashes Trauma: laceration MDM MDM MDM Narrative Medical decision making narrative: 79-year-old male on Eliquis right lower leg laceration. Tetanus already up-to-date. Locally anesthetized. Cleaned. Explored. Closed using Ethilon suture. Procedures Lacerations Right lower leg laceration repair:: Length: 18 in Depth: Sub Q Shape: Linear Prep: Shure-Clens Laceration repair: Irrigated, Lidocaine, Local, Skin sutures and Wound explored Number of Sutures/Ambia: 3 Suture Information: Ethilon, Simple and - (3-0 Ethilon ) Comment: Right lower leg laceration. Mid anterior askew. 1-1/2 inches. Locally anesthetized lidocaine. rider. Cleaned with Shur-Clens. Washed and irrigated with saline. Explored. I removed some loose tissue that was like a skin tear. Closed using 3 simple erupted 3-0 Ethilon sutures. Proper hemostasis wound closure obtained. Discharge Plan Triage Chief Complaint: Laceration ED Provider: Thomas Wasserman Dx/Rx/DC Orders Clinical Impression: Laceration of leg, Chronic anticoagulation, History of atrial fibrillation Instructions: ED Laceration, All Closures Prescriptions: No Action atorvastatin 40 mg tablet 20 mg PO .3xweek (DME) HANDICAP Placard Qty: 1 0RF Rx Instructions: As directed; 04/11/19-04/11/24 furosemide 20 mg tablet 20 mg PO DAILY levothyroxine 75 mcg tablet 75 mcg PO DAILY PreserVision AREDS 2,148 mcg-113 mg-45 mg-17.4mg tablet 2 tab PO BID Rx Instructions: administer with AM and PM meals spironolactone 25 mg tablet 25 mg PO DAILY Qty: 30 11RF lidocaine-prilocaine 2.5-2.5 % cream 1 applic topical ONCE PRN (Reason: port access) 30 Days Qty: 30 2RF loratadine 10 MG tablet 10 mg PO DAILY allopurinol [allopurinol] 300 MG tablet 300 mg PO DAILY Qty: 36 0RF Rx Instructions: Take 1 tablet by mouth daily on days 1-6 of each cycle albuterol sulfate 90 mcg/actuation HFA aerosol inhaler 1 - 2 puff INHALATION Q4H PRN PRN (Reason: copd) Qty: 6.7 0RF losartan 50 mg tablet 50 mg PO BID Qty: 180 3RF amlodipine 5 mg tablet 5 mg PO BID Qty: 180 3RF Eliquis 5 mg tablet 5 mg PO BID Qty: 180 4RF dofetilide 250 mcg capsule 250 mcg PO Q12 Qty: 180 3RF Primary Care Provider: Med Villanueva Referrals: Med Villanueva MD [Primary Care Provider] - 10-14 Days suture removal Activity Restrictions/Additional Instructions: Hold your next dose of Eliquis and then can restart it normally. Ice and elevate your leg. Keep it clean and dry. It can get wet in the shower but then dried off thoroughly. Do not let it soak in any water. Clean daily with soap and water. And apply antibiotic ointment. Stitches out in 10 to 14 days. Watch for any signs of infection. If seen such as redness, swelling, pus, streaks or fever return. Print Language: Marshallese Disposition Disposition: Home, Self Care
[2024-03-17] MEDS: Lidocaine 1% (20 ml mdv) 20 ML Vial 10 ML INFILT (18:18)
[2024-03-17 18:24] VITALS: BP 154/88; PULSE 65; RESP 18; TEMP 36.6; O2SAT 99
== END 2024-03-17 18:25 | disposition home or self-care (01) ==
PROVIDERS: Emergency Provider Emergency Medicine; PCP Family Medicine; Visit Provider Emergency Medicine
DX: S81.811A Laceration without foreign body, right lower leg, initial encounter (principal); J44.9 Chronic obstructive pulmonary disease, unspecified; I48.91 Unspecified atrial fibrillation; I25.10 Atherosclerotic heart disease of native coronary artery without angina pectoris; G47.33 Obstructive sleep apnea (adult) (pediatric); Z79.01 Long term (current) use of anticoagulants; X58.XXXA Exposure to other specified factors, initial encounter; Z87.891 Personal history of nicotine dependence
CPT/HCPCS: 12001; 99283

== ENCOUNTER → 2024-04-13 | Outpatient (CLI) | payer MEDICARE, BC, SELFPAY ==
[2024-04-13 12:36] LABS: Absolute Lymphocyte Count 5.32 X10^3/uL (0.83-4.51); Absolute Neutrophil Count 5.3 X10^3/uL (2.0-7.7); Basophil# 0.07 X10^3/uL; Basophil% 0.5 % (0-1); Eosinophil# 0.22 X10^3/uL; Eosinophils% 1.7 % (0-5); Hematocrit 40.1 % (40-54); Hemoglobin 13.3 g/dL (13.0-16.5); Lymphocyte # 5.32 X10^3/ul (0.83-4.51); Lymphocyte % 41.1 % (19-41); Mean Corp Hgb Conc 33.2 g/dL (32-36); Mean Corpuscular Hgb 29.1 pg (27.0-32.0); Mean Corpuscular Volume 87.7 fL (80-94); Mean Platelet Vol. 9.8 fl (6.2-12.0); Monocyte# 2.01 X10^3/uL; Monocyte% 15.5 % (0-10); NRBC Flagged by Analyzer 0 % (0-5); Neutrophil # 5.29 X10^3/uL (2.7-7.7); Neutrophil % 40.9 % (47-70); POSITIVE DIFFERENTIAL YES; POSITIVE MORPHOLOGY YES; Platelet Count 186 K/mm3 (150-450); RBC Distribution Width CV 13.1 % (11.6-14.6); RBC Distribution Width SD 41.5 fl (35.1-43.9); Red Blood Count 4.57 M/mm3 (4.6-6.2)
[2024-04-13 12:44] LABS: Differential Indicated SCAN CRITERIA MET
[2024-04-13 13:05] LABS: Anion Gap 6 (5-15); BUN 17 mg/dL (7-18); BUN/Creat Ratio 21.1 RATIO (10-20); Chloride 107 mmol/L (98-107); Creatinine, Serum 0.81 mg/dL (0.70-1.30); EST Glomerular Filtration Rate 98 mL/min (>60); Est Glom Filt Rate - Afr Amer 119 mL/min (>60); Glucose 116 mg/dL (74-106); Potassium 3.5 mmol/L (3.5-5.1); Sodium Level 140 mmol/L (136-145)
[2024-04-13 13:07] LABS: BNP,B-Type NATRIURETIC PEPTIDE 19.8 pg/mL (0-100)
[2024-04-13 13:09] LABS: Differential Comment SCANNED; Platelet Estimate ADEQUATE (ADEQ); Red Cell Morphology NORM C+C NORMAL (NORM C&C)
[2024-04-15 08:09] LABS: Pathologist Review Reviewed
== END | disposition home or self-care (01) ==
LOC: LAB 11:48
PROVIDERS: PCP Family Medicine; Referring Provider Nurse Practitioner Gerontology; Visit Provider Nurse Practitioner Gerontology
DX: R06.09 Other forms of dyspnea (principal)
CPT/HCPCS: 36415; 80048; 83880; 85025

== ENCOUNTER → 2024-04-27 | Outpatient (CLI) | payer MEDICARE, BC, SELFPAY ==
--- NOTE | 2024-04-27 10:05 | ECHOCS_ITS ---
Reason For Study: BEAN Procedure This was a 2D Doppler, Color Flow transthoracic echocardiogram. Contrast injection was performed. The study was technically difficult. Exam performed in department. Left Ventricle Normal LV size. Left ventricular systolic function is normal. The left ventricular ejection fraction is 60 %. Stage 1 diastolic dysfunction. No regional wall motion abnormalities noted. Right Ventricle Normal RV size. Normal systolic function. Atria The left atrium is mildly enlarged. Normal right atrium. Mitral Valve There is mild mitral annular calcification. Tricuspid Valve Normal tricuspid valve. Aortic Valve Trisinus/trileaflet aortic valve. Pulmonic Valve The pulmonic valve is not well visualized. Great Vessels Mildly dilated aortic root. The pulmonary artery is normal size. Inferior vena cava collapse with respiration. Pericardium/Pleural No pericardial effusion. Medication 22 gauge I.V. with prn adaptor inserted into right arm. Diluted definity 3ml given slow IV push to enhance endocardial definition. MMode/2D Measurements & Calculations LVIDd: 4.4 cm IVSd: 0.98 cm Ao root diam: 4.0 cm LVIDs: 3.0 cm LVPWd: 1.1 cm RVDd: 4.8 cm FS: 31.2 % LAV(MOD-bp): 76.7 ml LVAd ap4: 38.3 cm2 SV(MOD-sp4): 71.4 ml LAV(MOD-bp) Indexed: 33.9 ml/m2 LVLd ap4: 9.6 cm SI(MOD-sp4): 31.5 ml/m2 LAV(MOD-sp2): 76.3 ml EDV(MOD-sp4): 123.1 ml LAV(MOD-sp4): 76.1 ml EDV(sp4-el): 130.0 ml LVAs ap4: 22.7 cm2 LVLs ap4: 8.0 cm ESV(MOD-sp4): 51.8 ml ESV(sp4-el): 54.6 ml EF(MOD-sp4): 58.0 % EF(sp4-el): 58.0 % SV(sp4-el): 75.4 ml LA A4 area: 24.7 cm2 LA dimension(2D): 4.2 cm RA A4 area: 18.8 cm2 TAPSE: 2.5 cm Time Measurements MV dec time: 0.32 sec Doppler Measurements & Calculations MV E max florencio: 71.3 cm/sec Lat Peak E' Florencio: 10.5 cm/sec Med Peak E' Florencio: 7.9 cm/sec MV A max florencio: 99.9 cm/sec E/E' lat: 6.8 E/E' med: 9.0 MV E/A: 0.71 MV V2 max: 108.1 cm/sec MV P1/2t max florencio: 76.5 cm/sec Ao V2 max: 144.2 cm/sec MV max P.7 mmHg MV P1/2t: 104.4 msec Ao max P.3 mmHg MV V2 mean: 57.6 cm/sec MV dec slope: 214.7 cm/sec2 Ao V2 mean: 109.4 cm/sec MV mean P.6 mmHg MVA(P1/2t): 2.1 cm2 Ao mean P.2 mmHg MV V2 VTI: 30.7 cm Ao V2 VTI: 31.2 cm LV V1 max: 116.5 cm/sec PA V2 max: 105.1 cm/sec LV V1 max P.4 mmHg ECHO/Echo Complete W/ Contrast Interpretation Summary Normal LV size. Left ventricular systolic function is normal. The left ventricular ejection fraction is 60 %. Stage 1 diastolic dysfunction. The left atrium is mildly enlarged. Contrast injection was performed. Ordering Physician: Natalia Altamirano Referring Physician: Natalia Altamirano Performed By: Russel Lucio RCS
== END | disposition home or self-care (01) ==
LOC: CVS 10:02
PROVIDERS: PCP Family Medicine; Referring Provider Nurse Practitioner Gerontology; Visit Provider Nurse Practitioner Gerontology
DX: R06.09 Other forms of dyspnea (principal)
CPT/HCPCS: 93306; Q9957; A4216; C8929

== ENCOUNTER → 2024-06-26 | Outpatient (CLI) | payer MEDICARE, BC, SELFPAY ==
--- NOTE | 2024-06-26 | MRI_ITS ---
STUDY: MR PROSTATE GLAND/ PELVIS WITH T WITHOUT CONTRAST REASON FOR EXAM: Male, 79 years old. ELEVATED PSA,PSA 6.9 TECHNIQUE: Standardized fat and water weighted pulse sequences were obtained in all 3 orthogonal planes, pre-and post contrast administration. clariscan 22ml iv was administered for the contrast portion of the examination. COMPARISON: PET/CT exam dated 10/26/2023 FINDINGS: Prostate gland volume/size: Mildly enlarged measuring 5.47 x 5.76 x 5.73 cm in diameter. Anterior fibromuscular stroma: Normal. Peripheral zone: Right peripheral zone posterior medially with a 6.9 mm low signal nodule seen image 15/32 series 4. No enhancement is seen in this nodule on the postcontrast study no bright diffusion weighted signal is seen in this nodule, that would indicate malignancy. Fibrotic strands are seen in the posterior medial aspect of the left peripheral zone but no discrete mass or nodule is visualized. Central zone: Diffusely nodular and hyperplastic with intervening cysts and low signal nodules and fibrotic strands bilaterally, consistent with BPH. Postcontrast enhancement is symmetric bilaterally. No discrete malignant nodule is seen. Transitional zone: Diffusely nodular and hyperplastic with intervening cysts and low signal nodules and fibrotic strands bilaterally, consistent with BPH. Postcontrast enhancement is symmetric bilaterally. No discrete malignant nodule is seen. Prostate capsule: Intact: Seminal vesicles: Normal fluid signal bilaterally. Pelvic sidewall lymphadenopathy: Bulky iliac chain and bilateral inguinal lymphadenopathy is present with the largest lymph node seen in the left pelvic sidewall region measuring 6.25 cm in diameter. Bony structures: Heterogeneous blastic marrow infiltrative lesions are scattered throughout the bony structures demonstrate any enhancement and included in the bilateral hips which is likely related to the patient''s known diagnosis of leukemia. Bladder: No demonstrated masses or filling defects/stones. Normal urinary bladder. Normal visualized small intestine. Normal visualized colon. Vessels: No significant or large aneurysm is demonstrated. Normal abdominal wall. Small bilateral fat-containing inguinal present. MRI/Pelvis W/WO Contrast IMPRESSION: 1. Right peripheral zone posterior medially with a 6.9 mm low signal nodule seen image 15/32 series 4. No enhancement is seen in this nodule on the postcontrast study no bright diffusion weighted signal is seen in this nodule, that would indicate malignancy. Fibrotic strands are seen in the posterior medial aspect of the left peripheral zone but no discrete mass or nodule is visualized. 2. PI-RADS 3: intermediate (the presence of clinically significant cancer is equivocal) 3. Targeted image guided biopsy of nodules or area of interest can be performed for definitive pathologic assessment of the tissue and diagnosis 4. Prostate PET/CT exam can also be performed to determine if there is viable malignant neoplasm in the prostate gland. 5. Heterogeneous blastic marrow infiltrative lesions are scattered throughout the bony structures demonstrate any enhancement and included in the bilateral hips which is likely related to the patient''s known diagnosis of leukemia. Prostate MRI reference: 15-30% of prostate cancers can go undetected on Prostate MRI. Monitoring and assessment by Primary physician, Urology, and oncology service recommended and treated clnically. (Cancers ([place]). 2022May 20;15(55):9069. doi: [id number] Prostate Cancers Invisible on Multiparametric MRI: Pathologic Features in Correlation with Whole-Mount Prostatectomy Mikaela Finch 1,2,*, Martin Varela 3, oTrie Ac 1,2, Lilian Valdivia 1,2, Minna Pollard 4, Jamie Waldron 5, Vin Watt 6, Eric Escobar 1,2, Jh Lantigua 1,2) Reference information: Normal prostate tissue Benign prostatic hypertrophy cancer/tumor - low signal peripheral , transitional, and central zones malignancy appears as bright on DWI and low signal on ADC map Prostate imaging-reporting and data system (PI-RADS) PI-RADS 1: very low (clinically significant cancer is highly unlikely to be present) PI-RADS 2: low (clinically significant cancer is unlikely to be present) PI-RADS 3: intermediate (the presence of clinically significant cancer is equivocal) PI-RADS 4: high (clinically significant cancer is likely to be present) PI-RADS 5: very high (clinically significant cancer is highly likely to be present) PI-RADS X: component of exam technically inadequate or not performed Prostate malignancy distribution: Peripheral zone: 70-80% Transitional zone: 10-20% Central zone: 5% or less Electronically Signed: Roque Salazar MD at 15:04 EST ,
== END | disposition home or self-care (01) ==
PROVIDERS: PCP Family Medicine; Referring Provider Family Medicine; Visit Provider Family Medicine
DX: R97.20 Elevated prostate specific antigen [PSA] (principal)
CPT/HCPCS: 72197; A9575

== ENCOUNTER → 2024-07-13 | Outpatient (CLI) | payer MEDICARE, BC, SELFPAY ==
[2024-07-17 07:06] LABS: Bermuda Grass <0.10 kU/L (Class 0); Cat Hair / Dander,Stand <0.10 kU/L (Class 0); D farinae Mite <0.10 kU/L (Class 0); D pteronyssinus <0.10 kU/L (Class 0); Dog Epithelia <0.10 kU/L (Class 0)
[2024-07-17 12:06] LABS: Aspirgillus flavus Negative (Neg:<1:1); Aspirgillus fumigatus Negative (Neg:<1:1); Aspirgillus niger Negative (Neg:<1:1); Immunoglobulin E < 2 IU/mL (6-495)
== END | disposition home or self-care (01) ==
LOC: PAVLAB 11:31
PROVIDERS: PCP Family Medicine; Referring Provider Nurse Practitioner Family; Visit Provider Nurse Practitioner Family
DX: R05.9 Cough, unspecified (principal)
CPT/HCPCS: 36415; 82785; 86003; 86606; 87070; 87205

== ENCOUNTER → 2024-08-08 | Outpatient (CLI) | payer MEDICARE, BC, SELFPAY ==
[2024-08-08 13:20] VITALS: PULSE 100; PULSE 82; PULSE 83; PULSE 90; PULSE 93; PULSE 94; PULSE 95; PULSE 96; O2SAT 92; O2SAT 93; O2SAT 94; O2SAT 95
--- NOTE | 2024-08-12 13:37 | PCM.PSN.6M ---
PSN 6 Minute Walk Test 6 Minute Walk Test 6 Minute Walk Test: 6 Minute Walk Test PSN:6-Minute Walk Test Start: 08/08/24 13:20 Freq: Status: Active Protocol: RESP.6MINW Document 08/08/24 13:20 [email or web address] (Rec: 08/08/24 13:25 MIGUELON [id number]) 6 Minute Walk Test Date Performed 08/08/24 Time Performed 12:40 Height 5 ft 11 in Weight: 242 lb Weight in Pounds 242.[address]: Kerry Hernandez Assistive device None used: Pre-test Oxygen Delivery Room Air Method Pulse Ox (%) 92 Pulse Rate (60-100 83 beats/min) Dyspnea Familia Scale ( 0 0-10) Exertion Familia Scale 6 (6-20) 1st minute Oxygen Delivery Room Air Method Pulse Ox (%) 93 Pulse Rate (60-100 90 beats/min) 2nd minute Oxygen Delivery Room Air Method Pulse Ox (%) 93 Pulse Rate (60-100 93 beats/min) 3rd minute Oxygen Delivery Room Air Method Pulse Ox (%) 93 Pulse Rate (60-100 95 beats/min) 4th minute Oxygen Delivery Room Air Method Pulse Ox (%) 94 Pulse Rate (60-100 94 beats/min) 5th minute Oxygen Delivery Room Air Method Pulse Ox (%) 93 Pulse Rate (60-100 96 beats/min) 6th minute Oxygen Delivery Room Air Method Pulse Ox (%) 93 Pulse Rate (60-100 100 beats/min) Dyspnea Familia Scale ( 3 0-10) Exertion Familia Scale 13 (6-20) Post-test Oxygen Delivery Room Air Method Pulse Ox (%) 95 Pulse Rate (60-100 82 beats/min) Full Laps Walked 20 Partial Lap, Number 18 of Tiles Walked Total Distance 1198 Walked (ft) Interpretation Interpretation: The patient ambulated 1198 feet over the course of 6 minutes beginning on room air without assistive devices. Pretesting oxygen saturation was noted to be 92% on room air. With ambulation, the hi oxygen saturation was 93%. There was no significant exertional oxygen desaturation. Recommendations Recommendations: There is no indication for the use of supplemental oxygen at this time.
== END | disposition home or self-care (01) ==
LOC: PSN 12:36
PROVIDERS: PCP Family Medicine; Referring Provider Nurse Practitioner Family; Visit Provider Nurse Practitioner Family
DX: R05.9 Cough, unspecified (principal)
CPT/HCPCS: 94618

== ENCOUNTER → 2024-08-10 | Outpatient (CLI) | payer MEDICARE, BC, SELFPAY | END | disposition home or self-care (01) | LOC: PSN 12:46 | PROVIDERS: PCP Family Medicine; Referring Provider Nurse Practitioner Family; Visit Provider Nurse Practitioner Family | DX: R05.9 Cough, unspecified (principal) | CPT/HCPCS: 94060; 94726; 94729 ==

== ENCOUNTER → 2024-09-23 | Outpatient (CLI) | payer MEDICARE, BC, SELFPAY ==
--- NOTE | 2024-09-23 09:25 | EKG12_ITS ---
Test Reason : LONG-TERM MED Blood Pressure : */* mmHG Vent. Rate : 70 BPM Atrial Rate : 70 BPM P-R Int : 218 ms QRS Dur : 102 ms QT Int : 414 ms P-R-T Axes : 100 -36 35 degrees QTcB Int : 447 ms Sinus rhythm with 1st degree A-V block Left axis deviation Abnormal ECG Confirmed by Humberto Masterson ([id number]), tape editor SEAN LAWSON ([id number]) on 09/26/2024 8:50:34 AM Referred By: Kelin Donald Confirmed By: Humberto Masterson
== END | disposition home or self-care (01) ==
LOC: PSN 09:17
PROVIDERS: PCP Family Medicine; Referring Provider Nurse Practitioner Family; Visit Provider Nurse Practitioner Family
DX: C34.90 Malignant neoplasm of unspecified part of unspecified bronchus or lung (principal); C78.7 Secondary malignant neoplasm of liver and intrahepatic bile duct
CPT/HCPCS: 93005

== ENCOUNTER → 2024-12-02 | Outpatient (CLI) | payer MEDICARE, BC, SELFPAY ==
--- NOTE | 2024-12-02 09:00 | BI_ITS ---
EXAM: DIAG MAMM W/CAD, BILAT; BILAT [place] [place] STAND ALONE 12/02/2024 CLINICAL HISTORY: M, Age 79 y/o , SUBAREOLAR MASS OF LT BREAST. No family history of breast cancer. TECHNIQUE: DIAG MAMM W/CAD, BILAT; BILAT [place] STAND ALONE. COMPARISON: Baseline examination, no priors. FINDINGS: TISSUE DENSITY: The breasts are almost entirely fatty. Bilateral Breast Mammographic Findings: Left breast: There is a triangle skin marker indicating the area of palpable concern in the left retroareolar region. Underlying the skin marker is mild gynecomastia. Otherwise, there are no suspicious findings in the left breast. Right breast: There is a retroareolar density, which is consistent with minimal gynecomastia. Otherwise, there are no suspicious findings in the right breast. BI/DIAG MAMM W/CAD, BILAT IMPRESSION: The patient's area of palpable concern in the left breast is consistent with be nign mild gynecomastia. Also, there is minimal right gynecomastia. Clinical management is recommended to determine the etiolo gy. There is no mammographic evidence of malignancy in either breast. OVERALL FINAL ASSESSMENT BI-RADS 2: BENIGN RECOMMEND ANNUAL MAMMOGRAPHIC SCREENING. RECOMMENDATION: OTHERClinical management. A letter with findings and recommendations will be mailed to the patient. Reading Location: [id number]
--- NOTE | 2024-12-02 09:01 | BI_ITS ---
EXAM: DIAG MAMM W/CAD, BILAT; BILAT [place] STAND ALONE 12/02/2024 CLINICAL HISTORY: M, Age 79 y/o , SUBAREOLAR MASS OF LT BREAST. No family history of breast cancer. TECHNIQUE: DIAG MAMM W/CAD, BILAT; BILAT [place] STAND ALONE. COMPARISON: Baseline examination, no priors. FINDINGS: TISSUE DENSITY: The breasts are almost entirely fatty. Bilateral Breast Mammographic Findings: Left breast: There is a triangle skin marker indicating the area of palpable concern in the left retroareolar region. Underlying the skin marker is mild gynecomastia. Otherwise, there are no suspicious findings in the left breast. Right breast: There is a retroareolar density, which is consistent with minimal gynecomastia. Otherwise, there are no suspicious findings in the right breast. BI/Bilat [facility] [place] Stand Alone IMPRESSION: The patient's area of palpable concern in the left breast is consistent with be nign mild gynecomastia. Also, there is minimal right gynecomastia. Clinical management is recommended to determine the etiolo gy. There is no mammographic evidence of malignancy in either breast. OVERALL FINAL ASSESSMENT BI-RADS 2: BENIGN RECOMMEND ANNUAL MAMMOGRAPHIC SCREENING. RECOMMENDATION: OTHERClinical management. A letter with findings and recommendations will be mailed to the patient. Reading Location: [id number]
== END | disposition home or self-care (01) ==
PROVIDERS: PCP Family Medicine; Referring Provider Family Medicine; Visit Provider Family Medicine
DX: N63.42 Unspecified lump in left breast, subareolar (principal)
CPT/HCPCS: 77062; 77066; G0279

== ENCOUNTER → 2025-01-25 | Outpatient (CLI) | payer MEDICARE, BC, SELFPAY ==
--- NOTE | 2025-01-25 11:46 | VDLE_ITS ---
Reason For Study Reason For Study: Right leg swelling RIGHT LEFT GSV is normal. CFV is compressible, spontaneous, phasic, competent, CFV is compressible, spontaneous, phasic, competent and demonstrates normal augmentation. and demonstrates normal augmentation. FV is compressible, spontaneous, phasic, competent and demonstrates normal augmentation. POP V is compressible, spontaneous, phasic, competent and demonstrates normal augmentation. T/P Trunk is compressible. PTV is compressible. RT PerV is compressible. Procedure This is a venous duplex using B-mode, color flow and spectral Doppler. Exam performed in department. A preliminary report was called and/or faxed to [facility] RN. VL/Venous Duplex US, Unilateral Interpretation Summary Deep veins of the right lower extremity are patent and compressible segmentally . There is no evidence of right lower extremity deep vein thrombosis. Valvular competence appears intact within the p roximal deep venous system on the right . The right great saphenous vein appears patent and compressible segmentally. The left common femoral vein is patent and compressible . Ordering Physician: Kelin Donald Referring Physician: Med Villanueva Performed By: Ashley Muro RVT
== END | disposition home or self-care (01) ==
LOC: CVS 11:46
PROVIDERS: PCP Family Medicine; Referring Provider Nurse Practitioner Family; Visit Provider Nurse Practitioner Family
DX: M79.89 Other specified soft tissue disorders (principal); Z91.89 Other specified personal risk factors, not elsewhere classified
CPT/HCPCS: 93971

== ENCOUNTER 2025-02-21 15:29 | Emergency (ER) | payer MEDICARE, BC, SELFPAY ==
[2025-02-21 15:33] VITALS: BP 147/86; PULSE 72; RESP 18; TEMP 36.8; O2SAT 98; BMI 33.6
--- NOTE | 2025-02-21 15:53 | VDLE_ITS ---
Reason For Study Reason For Study: RLE Edema RIGHT GSV is normal. CFV is compressible, spontaneous, phasic, competent and demonstrates normal augmentation. FV is compressible, spontaneous, phasic, competent and demonstrates normal augmentation. POP V is compressible, phasic, and INCOMPETENT for greater than 1.0 second. T/P Trunk is compressible. PTV is compressible. RT PerV is compressible. Procedure This is a venous duplex using B-mode, color flow and spectral Doppler. Exam performed portable in ED. The exam was diagnostic. A preliminary report was called and/or faxed to Dr. Alcazar. VL/Venous Duplex US, Unilateral Interpretation Summary Deep veins of the right lower extremity are patent and compressible segmentally . There is no evidence of right lower extremity deep vein thrombosis. The right popliteal vein is incompetent. The ri ght common femoral vein and femoral vein are competent. The right great saphenous vein appears patent and compressible s egmentally. Ordering Physician: Belen Alcazar Referring Physician: Med Villanueva Performed By: Jose Morocho RVT
--- NOTE | 2025-02-21 15:53 | ED.VIS.LOWEX ---
HPI History of Present Illness Chief Complaint: Edema Narrative Narrative: Patient is a 80-year-old male presenting to the emergency department for right lower extremity pain and discoloration. Patient has a past medical history of CLL on acalabrutinib, swelling of his right lower extremity, hyperlipidemia, hypertension, A-fib, cellulitis. Patient states that he noticed some discoloration and edema to his right lower extremity about 28 days ago and followed up with [facility]. They started the patient on amoxcillin and doxy for presumed cellulitis and obtained an US to rule out DVT. Patient is on eliquis. DVT was negative at that time. Patient took the whole course of antibiotics and had no improvement, he called his primary care doctor who then put him on an additional course of amoxicillin with again no improvement. He denies any fever, chills, nausea, vomiting. Reports that he is having some pain to the right lateral calf and ankle. The discoloration has not tracked up his leg past his knee but he thinks it is going down in his foot. [facility] Medical History Cellulitis At high risk for deep venous thrombosis Right leg swelling Macular degeneration Encounter for education Hypogammaglobulinemia, acquired Acquired hypogammaglobulinemia Bruit of left carotid artery Atherosclerosis of [place] coronary artery of [place] heart without angina pectoris Atrial fibrillation Pure hypercholesterolemia Essential (primary) hypertension Skin cancer of face Bruising Edema of right lower extremity Chest discomfort Renal mass, left CLL (chronic lymphocytic leukemia) Depression Diverticulitis YURI (obstructive sleep apnea) Right carotid bruit Renal mass COPD (chronic obstructive pulmonary disease) Chronic lymphocytic leukemia (CLL), B-cell Home Medications ?Medication ?Instructions ?Recorded ?Last Taken ?Type loratadine 10 mg tablet 10 mg PO DAILY allergy 09/03/16 01/15/21 History furosemide 20 mg tablet 20 mg PO DAILY extra fluid 01/31/22 Unknown History atorvastatin 40 mg tablet 20 mg PO .3xweek lower cholesterol 02/04/23 Unknown History vitamins A,C,D-hdvt-hwtmtn 2,148 2 tab PO BID 05/07/23 Unknown History mcg-113 mg-45 mg-17.4 mg tablet (PreserVision AREDS) lidocaine-prilocaine 2.5 %-2.5 % 1 applic topical ONCE PRN port 11/05/23 Unknown Rx topical cream access 30 days #30 grams HANDICAP Placard #1 ea 04/13/24 Unknown Rx fluticasone fur. 200 mcg-umeclid 1 inh inhalation Q24H #60 ea 07/13/24 Unknown Rx 62.5 mcg-vilant 25 mcg inhalat.powder (Trelegy Ellipta) dofetilide 250 mcg capsule 250 mcg PO Q12 07/25/24 Unknown History levothyroxine 75 mcg tablet 75 mcg PO .qod 07/25/24 Unknown History guaifenesin 1,200 mg tablet, 1,200 mg PO BID #60 tabs 09/02/24 Unknown Rx extended release 12 hr (Mucinex) losartan 50 mg tablet 50 mg PO BID BP #180 tabs 09/12/24 Unknown Rx spironolactone 25 mg tablet 25 mg PO DAILY #90 tabs 09/12/24 Unknown Rx acalabrutinib maleate 100 mg tablet 100 mg PO Q12H CLL 30 days #60 tabs 09/13/24 Unknown Rx apixaban 5 mg tablet (Eliquis) 2.5 mg PO BID blood thinner 11/08/24 Unknown History amlodipine 5 mg tablet 5 mg PO BID BP #180 tabs 12/01/24 Unknown Rx amoxicillin 875 mg tablet 875 mg PO BID #14 tabs 01/25/25 Unknown Rx doxycycline hyclate 100 mg capsule 100 mg PO BID #14 caps 01/25/25 Unknown Rx Allergy/AdvReac Type Severity Reaction Status Date / Time No Known Allergies Allergy Verified 02/21/25 15:32 Family History Mother Throat cancer Father Heart disease Brother Hypertension Sister Thyroid disorder Son Diabetes Surgical History History of carpal tunnel surgery of left wrist History of cardioversion (~08/07/20) kidney tumor removed History of colectomy RIGHT FOREARM SCREWS AND PLATES History of arthroscopy of both knees CYST REMOVAL FROM BACK History of tonsillectomy Previous back surgery Social History Smoking Status: Former smoker how long ago did patient quit smokin years ago alcohol intake: current alcohol intake frequency: 0-2 drinks per day substance use type: does not use caffeine: Yes Type: coffee Number of servings: 1 ROS ROS ED ROS Narrative see HPI EXAM Physical Exam Narrative Exam Narrative: Vital signs: Reviewed General: Alert and oriented x 3. No acute distress HEENT: Head is normocephalic and atraumatic, sinuses nontender, pupils equal round and reactive. Nares are patent. Oropharynx and throat exams normal. Neck: Supple without lymphadenopathy nontender Cardiovascular: Regular rate and rhythm, no murmurs. No rubs or gallops. Normal S1 and S2 Respiratory: Clear to auscultation bilaterally. No wheezes, rales, rhonchi Abdominal: Soft and nontender. Normal bowel sounds. No guarding or rebound. Nonsurgical abdomen Extremities: RLE with purplish discoloration from below the knee to the ankle. DP and PT pulses are strong and palpable bilaterally. Sensation and motor intact. Able to flex and extend at ankle and knee without pain. Some mild tenderness to palpation of the right lateral calf. No significant warmth. Not cool to the touch. No fluctuance. No crepitus. Compartments are soft. The rest of the physical exam is unremarkable Const Vital Signs: 02/21/25 15:33 02/21/25 15:47 02/21/25 17:20 Temperature 98.3 F 98.3 F Temperature Source Temporal Pulse Rate 72 56 L Respiratory Rate 18 16 Respiratory Effort Normal Non-Labored Blood Pressure 147/86 H 148/87 H Blood Pressure Mean 106 107 Pulse Ox 98 98 Oxygen Delivery Method Room Air MDM MDM MDM Narrative Medical decision making narrative: Patient is a 80-year-old male presenting to the emergency department for right lower extremity discoloration and pain that started 28 days ago. Patient was seen and examined. Vitals are stable. Patient resting in bed comfortably no acute distress. The leg is not warm to the touch. It is more purpleish in color not erythematous. He has been on 2 courses of antibiotics with no improvement. I do not think this is cellulitis. There is no crepitus, no signs of necrotizing fascitis. It has slowly worsened over the past 10 days, no rapid spread. Pulses are palpable, no cool extremity to the touch, no paresthesias, I do not have concern about acute ischemic limb. Will obtain a DVT ultrasound. DVT ultrasound is negative for venous thrombosis. There is evidence of the popliteal vein being incompetent. This does correlate with my physical exam of venous stasis changes. I recommended that the patient have an [place] wrap applied here and wear compression stockings at home. Recommended that he elevate his legs with pillows while he is resting and sleeping. I recommended that he follow-up with a surgeon if his symptoms do not improve in the next 2 weeks with the measures that I discussed with him. Patient discharged from the Emergency Department. I do not feel that the patient's evaluation reveals any acute reason for admission at this time. I instructed them to either follow-up with their primary care physician or promptly return to the Emergency Department for reevaluation should symptoms worsen or new symptoms develop. I explained what symptoms would indicate the need to return to the emergency department. Shared decision making was used. The patient voiced understanding of the treatment plan and is agreeable with it. Clinical impression Venous stasis History & Record Review Discussion w/independent historian: Patient Additional record(s) reviewed:: Prior outpatient record Discharge Plan Triage Chief Complaint: Edema ED Provider: Belen Alcazar Dx/Rx/DC Orders Clinical Impression: Unspecified venous (peripheral) insufficiency, Swelling of right lower extremity Instructions: Understanding Leg Vein Problems, ED Peripheral Edema, Unilateral Prescriptions: No Action atorvastatin 40 mg tablet 20 mg PO .3xweek furosemide 20 mg tablet 20 mg PO DAILY levothyroxine 75 mcg tablet 75 mcg PO .qod PreserVision AREDS 2,148 mcg-113 mg-45 mg-17.4mg tablet 2 tab PO BID Rx Instructions: administer with AM and PM meals (DME) HANDICAP Placard Qty: 1 0RF Rx Instructions: As directed; 04/08/2024-04/08/2029 lidocaine-prilocaine 2.5-2.5 % cream 1 applic topical ONCE PRN (Reason: port access) 30 Days Qty: 30 2RF dofetilide 250 mcg capsule 250 mcg PO Q12 Trelegy Ellipta 200-62.5-25 mcg blister with device 1 inh inhalation Q24H Qty: 60 5RF guaifenesin [Mucinex] 1,200 mg tablet extended release 12hr 1,200 mg PO BID Qty: 60 3RF acalabrutinib maleate 100 mg tablet 100 mg PO Q12H 30 Days Qty: 60 5RF Eliquis 5 mg tablet 2.5 mg PO BID amoxicillin 875 mg tablet 875 mg PO BID Qty: 14 0RF doxycycline hyclate 100 mg capsule 100 mg PO BID Qty: 14 0RF loratadine 10 MG tablet 10 mg PO DAILY spironolactone 25 mg tablet 25 mg PO DAILY Qty: 90 3RF losartan 50 mg tablet 50 mg PO BID Qty: 180 3RF amlodipine 5 mg tablet 5 mg PO BID Qty: 180 3RF Primary Care Provider: Med Villanueva Referrals: Martin Adan MD [Med Staff - Active Staff] - 10-14 Days if not better Med Villanueva MD [Primary Care Provider] - Activity Restrictions/Additional Instructions: At home wear compression socks when you are up and moving. When you are sitting down or resting or sleeping at night please elevate your leg with pillows to help decrease the swelling and pain you are having. You can take Tylenol for pain control. I provided you vascular surgery follow up if you do not have improving symptoms in 1-2 weeks. Return to the ED with any new or worsening symptoms. Print Language: [place] Disposition Disposition: Home, Self Care Discharge Date/Time: 02/21/25 17:21
[2025-02-21 17:20] VITALS: BP 148/87; PULSE 56; RESP 16; TEMP 36.8; O2SAT 98
== END 2025-02-21 17:21 | disposition home or self-care (01) ==
PROVIDERS: Emergency Provider Student in an Organized Health Care Education/Training Program; PCP Family Medicine; Visit Provider Student in an Organized Health Care Education/Training Program
DX: I87.2 Venous insufficiency (chronic) (peripheral) (principal); C91.10 Chronic lymphocytic leukemia of B-cell type not having achieved remission; J44.9 Chronic obstructive pulmonary disease, unspecified; I48.91 Unspecified atrial fibrillation; I10 Essential (primary) hypertension; E78.5 Hyperlipidemia, unspecified; I25.10 Atherosclerotic heart disease of native coronary artery without angina pectoris; G47.33 Obstructive sleep apnea (adult) (pediatric); Z87.19 Personal history of other diseases of the digestive system; Z79.01 Long term (current) use of anticoagulants; Z79.51 Long term (current) use of inhaled steroids; Z79.899 Other long term (current) drug therapy; Z90.49 Acquired absence of other specified parts of digestive tract; Z87.891 Personal history of nicotine dependence
CPT/HCPCS: 93971; 99282

== ENCOUNTER → 2025-02-24 | Outpatient (CLI) | payer MEDICARE, BC, SELFPAY ==
--- NOTE | 2025-02-24 09:49 | CT_ITS ---
PROCEDURE: CT CHEST, ABD, PEL W/CONTRAST 02/24/2025 REASON FOR EXAM: ASSESS LYMPHADENOPATHY TECHNIQUE: Chest, abdomen and pelvis CT with intravenous contrast. Coronal and Sagittal reconstruction series were provided. One or more dose reduction techniques were used (e.g., Automated exposure control, adjustment of the mA and/or kV according to patient size, use of iterative reconstruction technique. PATIENT PREPARATION: Per protocol CONTRAST: Isovue 370 VOLUME: 100ML RADIATION DOSE SUMMARY: CTDlvol: 25.46 mGy DLP: 2753.46 mGycm COMPARISON: CT chest abdomen and pelvis May 26, 2024. FINDINGS: CT CHEST: Hardware: None. Lymph nodes: Decrease in size and enlarged mediastinal lymph nodes. Heart and Vasculature: No aortic aneurysm. Atherosclerotic calcifications of the coronary arteries. Lungs and Airways: Stable 1.4 cm ground-glass nodule in the upper pole of the left kidney. Pleura: No pleural effusion. No pneumothorax. Bones: No acute or suspicious bony abnormalities. CT ABDOMEN/PELVIS: Liver: The liver is enlarged measures 20 cm in length. Gallbladder: Unremarkable. Spleen: Unremarkable. Pancreas: Unremarkable. Adrenals: Stable thickening of the left adrenal gland. The right adrenal gland is unremarkable. Kidneys: No hydronephrosis. No nephrolithiasis. Bladder: Unremarkable. Reproductive Organs: The prostate is enlarged measures 5.5 cm. Bowel: Anastomosis at the sigmoid. No bowel wall thickening or bowel obstruction. Appendix: Unremarkable. Lymph nodes: Stable retroperitoneal lymph nodes. For example a left common iliac lymph node measures 2.2 cm. Vasculature: Atherosclerotic calcifications. No aneurysm. Peritoneum / Retroperitoneum: No free air or free fluid. Bones: No acute or suspicious bony abnormalities. CT/CT Chest, Abd, Pel w/Contrast IMPRESSION: Stable 1.4 cm ground-glass nodule in the left upper lobe. Decrease in size of mediastinal lymphadenopathy. No significant change in retroperitoneal lymphadenopathy compared to CT chest a bdomen and pelvis May 26, 2024. Reading Location: [facility]
--- NOTE | 2025-02-24 09:49 | CT_ITS ---
PROCEDURE: SOFT TISSUE NECK WITH CONTRAST 02/24/2025 REASON FOR EXAM: ASSESS LYMPHADNOPATHY TECHNIQUE: Procedure Code: CTNEW Modality: CT Procedure: SOFT TISSUE NECK WITH CONTRAST CONTRAST: Isovue 370 VOLUME: 75 mL One or more dose reduction techniques were used (e.g., Automated exposure control, adjustment of the mA and/or kV according to patient size, use of iterative reconstruction technique). 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 FINDINGS: Airway: Patent. Salivary glands: Unremarkable. Lymph nodes: No lymphadenopathy. Thyroid: Unremarkable. Vasculature: Atherosclerotic calcifications. Orbits: Unremarkable. Paranasal sinuses and mastoids: Clear. Lung apices: Clear. Upper mediastinum: Unremarkable. Bones: No acute bony abnormalities. Other: CT/Soft Tissue Neck WITH Contrast IMPRESSION: Unremarkable CTA neck without lymphadenopathy. Reading Location: [facility]
[2025-02-24] MEDS: 0.9% Saline Lock 10 ML Syringe IV (10:05)
== END | disposition home or self-care (01) ==
LOC: CT 09:48
PROVIDERS: PCP Family Medicine; Referring Provider Internal Medicine Medical Oncology; Visit Provider Internal Medicine Medical Oncology
DX: C91.10 Chronic lymphocytic leukemia of B-cell type not having achieved remission (principal)
CPT/HCPCS: 70491; 71260; 74177; Q9967; A4216

== ENCOUNTER 2025-03-29 09:04 | Outpatient (CLI) | payer MEDICARE, BC, SELFPAY ==
--- NOTE | 2025-03-29 09:07 | ART_ITS ---
Reason For Study Reason For Study: Edema Procedure A bilateral lower extremity continuous wave Doppler with analog waveform analysis and ankle brachial indexes. Left Segmental Pressures Left brachial= 141mmHg. Left posterior tibial artery = 153mmHg. Left dorsalis pedis artery = 168mmHg. Left digit = 149 mmHg. The left dorsalis pedis waveforms are triphasic. The left posterior tibial artery waveforms are triphasic. Right Segmental Pressures Right brachial= 144mmHg. Right posterior tibial artery = 189mmHg. Right dorsalis pedis artery = 148mmHg. Right digit = 132 mmHg. The right dorsalis pedis waveforms are triphasic. The right posterior tibial artery waveforms are triphasic. Indices The right ankle brachial index by the dorsalis pedis is 1.03. The right ankle brachial index by the posterior tibial artery is 1.31. The right digital-brachial index is 0.92. The left ankle brachial index by the dorsalis pedis is 1.17. The left ankle brachial index by the posterior tibial artery is 1.06. The left digital-brachial index is 1.03. VL/Ankle Brachial Index Interpretation Summary Resting ankle-brachial indices appear bilaterally normal. Ordering Physician: Jovany Rocha Referring Physician: Med Villanueva MD Performed By: [facility]
--- NOTE | 2025-03-29 09:07 | VDLE_ITS ---
Reason For Study Reason For Study: Edema RIGHT LEFT GSV is normal. GSV is normal. CFV is compressible, spontaneous, phasic, competent CFV is compressible, spontaneous, phasic, competent, and demonstrates normal augmentation. and demonstrates normal augmentation. FV is compressible, spontaneous, phasic, competent FV is compressible, spontaneous, phasic, competent and demonstrates normal augmentation. and demonstrates normal augmentation. POP V is compressible, spontaneous, phasic, competent POP V is compressible, spontaneous, phasic, competent and demonstrates normal augmentation. and demonstrates normal augmentation. T/P Trunk is compressible. T/P Trunk is compressible. PTV is compressible. PTV is compressible. RT PerV is compressible. LT PerV is compressible. Procedure This is a venous duplex using B-mode, color flow and spectral Doppler. Exam performed in department. VL/Venous Duplex US - Cesar Extrem Interpretation Summary No evidence for acute deep venous thrombosis bilateral lower extremities with p atent and compressible bilateral great saphenous veins. Ordering Physician: Jovany Rocha Referring Physician: Med Villanueva MD Performed By: Yuli Mariscal, RVT
--- NOTE | 2025-03-29 09:07 | CDU_ITS ---
Reason For Study Reason For Study: Carotid Stenosis Rt. Velocities/BP Lt. Velocities/BP Prox CCA 88.8/12.6 cm/sec. Prox CCA 86.1/13.5 cm/sec. Mid CCA 75.3/11.4 cm/sec. Mid CCA 76.2/13.5 cm/sec. Dist CCA 66.7/15.1 cm/sec. Dist CCA 67.4/8.0 cm/sec. Prox ICA 49.3/12.5 cm/sec. Prox ICA 51.9/15.1 cm/sec. Mid ICA 47.2/11.5 cm/sec. Mid ICA 67.9/18.8 cm/sec. Dist ICA 60.5/20.0 cm/sec. Dist ICA 80.2/20.0 cm/sec. Rt. ICA/CCA = 0.8. Lt. ICA/CCA = 1.0. Prox ECA 68.7/11.5 cm/sec. Prox ECA 82.6/6.5 cm/sec. Rt. Vert. 36.6/8.0 cm/sec. Lt. Vert. 67.9/12.6 cm/sec. Right Extracranial There is heterogeneous, irregular atherosclerotic plaque noted in the right common carotid artery. There is heterogeneous, irregular atherosclerotic plaque noted in the right internal carotid artery. The right internal carotid artery is very tortuous. There is intimal thickening but no significant atherosclerotic plaque noted in the right external carotid artery. Antegrade flow is noted in the right vertebral artery. Left Extracranial There is heterogeneous, irregular atherosclerotic plaque noted in the left common carotid artery. There is heterogeneous, irregular atherosclerotic plaque noted in the left internal carotid artery. There is intimal thickening but no significant atherosclerotic plaque noted in the left external carotid artery. Antegrade flow is noted in the left vertebral artery. Procedure Carotid Duplex [id number]. This is a Carotid Duplex examination using B-mode, color flow and specral Doppler. Exam performed in department. VL/Carotid Duplex Ultrasound Interpretation Summary Mild (<50%) stenosis right extracranial internal carotid. Mild (<50%) stenosis left extracranial internal carotid. Patent and antegrade vertebrals bilaterally. Ordering Physician: Jovany Rocha Referring Physician: Med Villanueva MD Performed By: Yuli Mariscal RVT
== END 2025-03-29 23:59 | disposition home or self-care (01) ==
LOC: CVS 09:05
PROVIDERS: PCP Family Medicine; Referring Provider Surgery Vascular Surgery; Visit Provider Surgery Vascular Surgery
DX: I70.213 Atherosclerosis of native arteries of extremities with intermittent claudication, bilateral legs (principal); I48.0 Paroxysmal atrial fibrillation; I65.23 Occlusion and stenosis of bilateral carotid arteries; I10 Essential (primary) hypertension; E78.5 Hyperlipidemia, unspecified; R60.0 Localized edema
CPT/HCPCS: 93880; 93922; 93970

== ENCOUNTER → 2025-05-11 | Outpatient (CLI) | payer MEDICARE, BC, SELFPAY ==
--- NOTE | 2025-05-11 09:40 | EKG12_ITS ---
Test Reason : MED MONITPRING Blood Pressure : */* mmHG Vent. Rate : 60 BPM Atrial Rate : 60 BPM P-R Int : 248 ms QRS Dur : 102 ms QT Int : 436 ms P-R-T Axes : 78 -32 4 degrees QTcB Int : 436 ms Sinus rhythm with 1st degree A-V block Left axis deviation Abnormal ECG Confirmed by DEN HUYNH, SHASHA ([id number]), editorial manager SEAN LAWSON ([id number]) on 05/12/2025 9:18:18 AM Referred By: Kelin Donald Confirmed By: SHASHA CRENSHAW MD
== END | disposition home or self-care (01) ==
LOC: PSN 09:39
PROVIDERS: PCP Family Medicine; Referring Provider Nurse Practitioner Family; Visit Provider Nurse Practitioner Family
DX: Z51.81 Encounter for therapeutic drug level monitoring (principal); C91.10 Chronic lymphocytic leukemia of B-cell type not having achieved remission; Z79.899 Other long term (current) drug therapy
CPT/HCPCS: 93005